=== PATIENT | female | born 1950 | race Hispanic/Latino ===

== ENCOUNTER 2018-11-03 20:29 | Emergency (ER) | payer MEDICARE, OTHER ==
[~2018-11-03] VITALS: Ht 167.6 cm; Wt 126.1 kg
[~2018-11-03 20:29] MED LIST: AMITRIPTYLINE H25 MG PO; ASPIR 8181 MG PO; BELLADONNA30 MG/100; CLOPIDOGREL75 MG PO; CYCLOBENZAPRINE10 MG PO; FIORINAL 50-321 EACH PO; GABAPENTIN300 MG PO; ISONIAZID300 MG PO; LISINOPRIL10 MG PO; MACRODANTIN100 MG PO; METOPROLOL TART25 MG PO; NEURONTIN300 MG PO; NITROFURANTOIN100 MG PO; PROAIR HFA INH8.5 GM; SIMVASTATIN40 MG PO; TIZANIDINE HCL2 MG; TRAMADOL-ACETAMI1 EA PO; VITAMIN B-650 M1 PO
--- OUTSIDE RECORDS SUMMARY | 2018-11-03 20:33 | XMS REPORT ---
Author Author Jass Reddy Organization [employer] Address Unknown Phone Unavailable Care Team Providers Care Vertical Mill Operator Name Role Phone Jass Reddy CP Unavailable Allergies, Adverse Reactions, Alerts Substance Reaction Event Type Vicodin Info Not Available Drug Allergy Ursodiol Info Not Available Drug Allergy Naproxen Info Not Available Drug Allergy Levofloxacin Info Not Available Drug Allergy Codeine Sulfate Info Not Available Drug Allergy Amlodipine Besylate Info Not Available Drug Allergy Problems Problem Type Condition Code Onset Dates Condition Status Problem Obesity, unspecified 278.00 Active Problem Mixed hyperlipidemia E78.2 Active Problem Obesity, unspecified E66.9 Active Problem Body mass index (BMI) 40.0-44.9, adult Z68.41 Active Assessment Obesity, unspecified E66.9 Active Problem Other pulmonary embolism without acute cor pulmonale I26.99 Active Assessment Body mass index (BMI) 40.0-44.9, adult Z68.41 Active Problem Lower extremity edema M79.89 Active Problem Bradycardia, unspecified R00.1 Active Problem Nonrheumatic aortic (valve) insufficiency I35.1 Active Problem Disseminated malignant neoplasm, unspecified C80.0 Active Problem Hypertensive heart disease without heart failure I11.9 Active Assessment Lower extremity edema M79.89 Active Assessment Bradycardia, unspecified R00.1 Active Assessment Disseminated malignant neoplasm, unspecified C80.0 Active Assessment Mixed hyperlipidemia E78.2 Active Problem Aortic valve disorders 424.1 Active Problem Mixed hyperlipidemia 272.2 Active Assessment Hypertensive heart disease without heart failure I11.9 Active Problem Benign hypertensive heart disease without heart failure 402.10 Active Assessment Other pulmonary embolism without acute cor pulmonale I26.99 Active Problem Angina pectoris 413.9 Active Medications Medication Code System Code Instructions Start Date End Date Status Dosage Lisinopril [facility] [address]-23 5 MG Orally Once a day Active 1 tablet Amitriptyline HCl [facility] [address]-08 25 MG Orally Once a day Active 1 tablet at bedtime Nitrofurantoin Macrocrystal [facility] [address]-92 100 mg Orally daily Active 1 capsule Meclizine HCl [facility] [address]-13 25 MG Orally Once a day Active 1 tablet as needed Metoprolol Tartrate [facility] [address]-07 50 MG Orally Twice a day Active 1 tablet Vitamin D3 [facility] [address]-17 2000 UNIT Orally Once a day Active 1 capsule ProAir HFA [facility] [address]-17 108 (90 Base) MCG/ACT Inhalation every 4 hrs Active 2 puffs as needed Tizanidine HCl [facility] [address]-78 2 MG Orally every 8 hrs Active 1 tablet as needed Simvastatin [facility] [address]-59 40 MG Orally Once a day Active 1 tablet in the evening Gabapentin [facility] [address]-04 300 MG Orally twice a day (bid) Active 1 capsule Furosemide [facility] [address]-26 20 MG Orally Once a day Aug 04, 2017 Active 1 tablet Eliquis [facility] [address]-28 5 MG Orally twice a day (bid) Active 1 tablet Tramadol-Acetaminophen [facility] [address]-04 37.5-325 MG Orally every 6 hrs Active 2 tablets as needed Vital Signs Date/Time: Aug 04, 2017 BMI 43.85 Index Weight 280 lbs Height 67 in Cardiac Monitoring Heart Rate 64 /min Blood Pressure Diastolic 70 mm Hg Blood Pressure Systolic 134 mm Hg Results No Known Results Summary Purpose [employer] Submission
--- OUTSIDE RECORDS SUMMARY | 2018-11-03 20:33 | XMS REPORT ---
Author Author Jass Reddy Organization [employer] Address Unknown Phone Unavailable Care Team Providers Care Sap Portal Developer Name Role Phone Jass Reddy CP Unavailable Allergies, Adverse Reactions, Alerts Substance Reaction Event Type Vicodin Info Not Available Drug Allergy Ursodiol Info Not Available Drug Allergy Naproxen Info Not Available Drug Allergy Levofloxacin Info Not Available Drug Allergy Codeine Sulfate Info Not Available Drug Allergy Amlodipine Besylate Info Not Available Drug Allergy Problems Problem Type Condition Code Onset Dates Condition Status Problem Hypertensive heart disease without heart failure I11.9 Active Problem Obesity, unspecified E66.9 Active Problem Mixed hyperlipidemia E78.2 Active Problem Lower extremity edema M79.89 Active Assessment Disseminated malignant neoplasm, unspecified C80.0 Active Problem Body mass index (BMI) 40.0-44.9, adult Z68.41 Active Assessment Morbid (severe) obesity due to excess calories E66.01 Active Assessment Body mass index (BMI) 40.0-44.9, adult Z68.41 Active Problem Morbid (severe) obesity due to excess calories E66.01 Active Problem Nonrheumatic aortic (valve) insufficiency I35.1 Active Problem Bradycardia, unspecified R00.1 Active Problem Disseminated malignant neoplasm, unspecified C80.0 Active Problem Other pulmonary embolism without acute cor pulmonale I26.99 Active Assessment Bradycardia, unspecified R00.1 Active Assessment Hypertensive heart disease without heart failure I11.9 Active Assessment Mixed hyperlipidemia E78.2 Active Assessment Lower extremity edema M79.89 Active Problem Angina pectoris 413.9 Active Problem Benign hypertensive heart disease without heart failure 402.10 Active Assessment Other pulmonary embolism without acute cor pulmonale I26.99 Active Problem Aortic valve disorders 424.1 Active Problem Mixed hyperlipidemia 272.2 Active Problem Obesity, unspecified 278.00 Active Medications Medication Code System Code Instructions Start Date End Date Status Dosage Lisinopril [facility] 57064450263 5 MG Orally Once a day Active 1 tablet Metoprolol Tartrate [facility] 78805610756 50 mg Orally Twice a day Active 1/2 half tablet Sutent [facility] 75718303165 25 MG Orally Once a day Active 1 capsule Tramadol-Acetaminophen [facility] 88225798870 37.5-325 MG Orally every 6 hrs Active 2 tablets as needed Furosemide [facility] 73539536564 20 MG Orally Once a day Aug 04, 2017 Active 1 tablet Vitamin D3 [facility] 74567248224 2000 UNIT Orally Once a day Active 1 capsule Trimethoprim [facility] 95855942542 100 MG Orally Once a day Active 1 tablet Tizanidine HCl [facility] 54874159520 2 MG Orally every 8 hrs Active 1 tablet as needed ProAir HFA [facility] 10407797204 108 (90 Base) MCG/ACT Inhalation every 4 hrs Active 2 puffs as needed Gabapentin [facility] 11169656561 300 MG Orally once every night Active 1 capsule Nitrofurantoin Macrocrystal [facility] 30721821772 100 mg Orally daily Active 1 capsule Eliquis [facility] 92096874703 5 MG Orally twice a day (bid) Active 1 tablet Aspirin [facility] 01715750566 81 MG Orally Once a day Active 1 tablet Simvastatin [facility] 20096739449 40 MG Orally Once a day Active 1 tablet in the evening Vital Signs Date/Time: April 27, 2018 BMI 41.97 Index Weight 268 lbs Height 5ft 7in in Cardiac Monitoring Heart Rate 54 /min Blood Pressure Diastolic 68 mm Hg Blood Pressure Systolic 129 mm Hg Results No Known Results Summary Purpose [employer] Submission
--- OUTSIDE RECORDS SUMMARY | 2018-11-03 20:33 | XMS REPORT ---
Author Author Jass Reddy Organization [employer] Address Unknown Phone Unavailable Care Team Providers Care First Line Production Supervisor Name Role Phone Jass Reddy CP Unavailable Allergies No Known Allergies Problems Problem Type Condition Code Onset Dates Condition Status Problem Obesity, unspecified 278.00 Active Problem Mixed hyperlipidemia E78.2 Active Problem Obesity, unspecified E66.9 Active Problem Body mass index (BMI) 40.0-44.9, adult Z68.41 Active Problem Other pulmonary embolism without acute cor pulmonale I26.99 Active Problem Lower extremity edema M79.89 Active Problem Bradycardia, unspecified R00.1 Active Problem Nonrheumatic aortic (valve) insufficiency I35.1 Active Problem Disseminated malignant neoplasm, unspecified C80.0 Active Problem Hypertensive heart disease without heart failure I11.9 Active Problem Aortic valve disorders 424.1 Active Problem Mixed hyperlipidemia 272.2 Active Problem Benign hypertensive heart disease without heart failure 402.10 Active Problem Angina pectoris 413.9 Active Medications No Known Medications Results No Known Results Summary Purpose [employer] Submission
--- OUTSIDE RECORDS SUMMARY | 2018-11-03 20:33 | XMS REPORT ---
Author Author Jass Reddy Organization [employer] Address Unknown Phone Unavailable Care Team Providers Care Linotype Machinist Apprentice Name Role Phone Jass Reddy CP Unavailable Encounters Encounter Location Date Unknown [place] Aug [place], 2015 echo/carotid/arterial dopplers [place] Aug 04, 2016 Problems Problem Type Condition ICD-9 Code Onset Dates Condition Status Problem Aortic valve disorders 424.1 Active Problem Benign hypertensive heart disease without heart failure 402.10 Active Problem Mixed hyperlipidemia 272.2 Active Problem Bradycardia, unspecified R00.1 Active Problem Nonrheumatic aortic (valve) insufficiency I35.1 Active Problem Hypertensive heart disease without heart failure I11.9 Active Problem Obesity, unspecified 278.00 Active Problem Angina pectoris 413.9 Active Problem Mixed hyperlipidemia E78.2 Active Problem Obesity, unspecified E66.9 Active Social History Social History Element Qualifiers Date Reported Tobacco Use: . Are you a: never smoker Aug 28, 2015 Marital Status: . Aug 28, 2015 Do you drink alcohol? . Status: No Aug 28, 2015 Occupation: . Unemployed Aug 28, 2015 Summary Purpose [employer] Submission
--- OUTSIDE RECORDS SUMMARY | 2018-11-03 20:33 | XMS REPORT | Clinical Summary ---
Author [facility] Organization [facility] Address Unknown Phone Unavailable Care Team Providers Care Alteration Tailor Name Role Phone Mario AlebrtoInderjit stover Unavailable Marium Mckenna MD PCP Allergies Comments Active Allergy Reactions Severity Noted Date Codeine Nausea And High 09/22/2016 Vomiting Bruising Levofloxacin Other (See High 10/17/2016 Comments) bruising Ursodiol Other (See High 09/22/2016 Comments) Hydrocodone-Acetaminophen Nausea And High 09/22/2016 Vomiting Medications End Date Status Medication Sig Dispensed Refills Start Date Active metoprolol (LOPRESSOR) 50 Take 50 mg by 0 MG tablet mouth 2 (two) times daily. Active lisinopril Take 20 mg by 0 (PRINIVIL,ZESTRIL) 20 MG mouth daily. tablet Active simvastatin (ZOCOR) 40 MG Take 40 mg by 0 tablet mouth nightly. Active amitriptyline (ELAVIL) 25 Take 25 mg by 0 MG tablet mouth nightly . Active gabapentin (NEURONTIN) Take 300 mg 0 300 MG capsule by mouth 3 (three) times daily. Active tiZANidine (ZANAFLEX) 2 Take 2 mg by 0 MG tablet mouth every 6 (six) hours as needed. Active albuterol HFA (VENTOLIN Inhale 1 puff 0 HFA) 90 mcg/actuation by mouth via inhaler inhaler every 6 (six) hours as needed for Wheezing. Active nitroglycerin (NITROSTAT) Place 0.4 mg 0 0.4 MG SL tablet under the tongue every 5 (five) minutes as needed for Chest pain Put 1 pill under tongue every 5min as needed for chest pain.No more than 3 doses in 15min.Call 911 if pain is unrelieved 5min after 1st dose . Active traMADol-acetaminophen Take 1 tablet 0 (ULTRACET) 37.5-325 mg by mouth per tablet every 6 (six) hours as needed for Pain. 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 Last Filed Vital Signs Not on file Plan of Treatment Not on file Implants Device Identifier Shelf Expiration Date Model / Serial / Lot Implanted Type Area Manufactur er 01/12/2021 BW-012 / / [id number] Material Bone Hemostasis Bw-012 - Cement/Will Right: Sternum CEREMED [id number] ler/Adhesi Implanted: Qty: 1 on 10/05/2016 by Dell Cobian MD 05/12/2021 [id number] / / [id number] Patch Vasc Jefferson 1.65mm 1x6in Graft/Patc Right: Abdomen CR [id number] - [id number] BARD:PERIP Implanted: Qty: 1 on 10/05/2016 by Dell Ibanez MD 07/12/2021 [id number] / / [id number] Patch Vasc Jefferson 1.65mm 1x6in Graft/Patc Right: Chest CR [id number] - [id number] BARD:PERIP Implanted: Qty: 1 on 10/05/2016 by Dell Ibanez MD Results Not on fileafter 11/02/2017 Insurance Payer Benefit Subscriber ID Type Phone Address Plan / Group [facility] xxxxxxxxx MEDICARE MGD CARE MEDICARE HMO Advance Directives For more information, please contact: [facility] [address] [place] [address] Date Inactivated Comments Code Status Date Activated 10/11/2016 5:39 PM Full Code 10/05/2016 5:08 PM This code status was determined by: Patient
--- OUTSIDE RECORDS SUMMARY | 2018-11-03 20:33 | XMS REPORT | Continuity of Care Document ---
Author Author [facility] Interface Address Unknown Phone Unavailable Problems Problem Status Onset Date Classification Date Reported Comments Source Discharge Diagnosis: Dental infection 01/06/2017 01/09/2017 [place] LACERATION Active 01/06/2017 [place] Obesity, unspecified Active Problem 04/28/2018 Jass Reddy MD, PA Mixed hyperlipidemia Active Problem 04/28/2018 Jass Reddy MD, PA Obesity, unspecified Active Problem 04/28/2018 Jass Reddy MD, PA Body mass index 40.0-44.9, adult Active Problem 04/28/2018 Jass Reddy MD, PA Other pulmonary embolism without acute cor pulmonale Active Problem 04/28/2018 Jass Reddy MD, PA Lower extremity edema Active Problem 04/28/2018 Jass Reddy MD, PA Bradycardia, unspecified Active Problem 04/28/2018 Jass Reddy MD, PA Nonrheumatic aortic insufficiency Active Problem 04/28/2018 Jass Reddy MD, PA Disseminated malignant neoplasm, unspecified Active Diagnosis 04/28/2018 Jass Reddy MD, PA Hypertensive heart disease without heart failure Active Problem 04/28/2018 Jass Reddy MD, PA Aortic valve disorders Active Problem 04/28/2018 Jass Reddy MD, PA Mixed hyperlipidemia Active Problem 04/28/2018 Jass Reddy MD, PA Benign hypertensive heart disease without heart failure Active Problem 04/28/2018 Jass Reddy MD, PA Angina pectoris Active Problem 04/28/2018 Jass Reddy MD, PA Morbid obesity due to excess calories Active Diagnosis 04/28/2018 Jass Reddy MD, PA Coronary artery 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, unspecified whether tangirnaq or transplanted heart Active Problem 11/03/2018 Enayet Rahim S/p nephrectomy Active Problem 11/03/2018 Enayet Rahim Essential hypertension Active Problem 11/03/2018 Enayet Rahim Mild pulmonary hypertension Active Problem 11/03/2018 Enayet Rahim Pure hypercholesterolemia Active Problem 11/03/2018 Jose Maria Reyes Frequent UTI Active Problem 11/03/2018 Jose Maria Reyes Neuropathy Active Problem 11/03/2018 Jose Maria Reyes Vitamin D deficiency Active Problem 11/03/2018 Jose Maria Reyes Tachycardia Active Problem 11/03/2018 Jose Maria Reyes At risk for sleep apnea Active Diagnosis 05/03/2017 Jose Maria Reyes Other specified transient cerebral ischemias Active Problem 11/03/2018 Jose Maria Reyes History of nephrectomy, unilateral Active Problem 11/03/2018 Jose Maria Reyes Current use of fdc anticoagulation Active Problem 11/03/2018 Jose Maria Reyes Renal cell carcinoma of right kidney Active Diagnosis 12/30/2017 Jose Maria Reyes Fall, subsequent encounter Active Diagnosis 06/09/2018 Jose Maria Reyes Dizziness Active Diagnosis 06/09/2018 Jose Maria Reyes Other acute pulmonary embolism without acute cor pulmonale Active Diagnosis 10/26/2016 Jose Maria Reyes Diverticulitis of large intestine without perforation or abscess with bleeding Active Problem 11/03/2018 Jose Maria Reyes Lower abdominal pain Active Diagnosis 07/15/2018 Jose Maria Reyes Leg swelling Active Diagnosis 08/09/2018 Jose Maria Reyes Renal cell carcinoma, unspecified laterality Active Diagnosis 10/29/2016 Jose Maria Reyes Other chronic pulmonary embolism without acute cor pulmonale Active Diagnosis 01/26/2017 Jose Maria Reyes Tooth infection Active Diagnosis 01/26/2017 Jose Maria Reyes Prediabetes Active Problem 11/03/2018 Jose Maria Reyes Left shoulder pain Active Diagnosis 11/03/2018 Jose Maria Reyes Morbid obesity Active Problem 04/25/2018 [facility] Renal cell carcinoma Resolved Problem 04/25/2018 [facility] Medications Medication Details Route Status Patient Instructions Ordering Provider Order Date Source Tizanidine HCl 1 tablet as needed once every night orally 90 days by mouth Active 2 MG by mouth daily [facility] 10/18/2018 Jose Maria Reyes Trimethoprim 100 MG Oral Tablet 100 mg=1 tab, PO, Daily, # 90 tab, 4 Refill(s), [id number] Active 04/20/2018 [facility] Trimethoprim 100 MG Oral Tablet 100 mg=1 tab, PO, Daily, X 90 day, # 90 tab, 0 Refill(s), Pharmacy: [facility] [id number] No Longer Active 03/11/2018 [facility] Tizanidine HCl 1 tablet as needed Orally Active 2 MG Orally once every night [facility] 11/09/2017 Jose Maria Reyes Trimethoprim 100 MG Oral Tablet 100 mg=1 tab, PO, Daily, X 30 day, # 30 tab, 0 Refill(s), Pharmacy: [facility] [id number] Active 10/18/2017 [facility] Q-Tussin 10 ml as needed Orally Active 100 MG/5ML Orally twice a day (bid) as needed (prn) [facility] 10/10/2017 Jose Maria Reyes Furosemide 1 tablet Orally Active 20 MG Orally Once a day [facility] 08/04/2017 Jass Reddy MD, PA Furosemide 1 tablet Orally Active 20 MG Orally Once a day [facility] 08/04/2017 Jass Reddy MD, PA Tramadol-Acetaminophen 1 tablet Orally Active 37.5-325 MG Orally three times a day (tid) as needed (prn) [facility] 11/25/2016 Jose Maria Reyes Amlodipine Besylate 1 tablet Orally Active 10 mg Orally Once a day [facility] 02/21/2015 Jass Reddy MD, PA Eliquis 1 tablet Orally Active 5 MG Orally twice a day (bid) [facility] Jass Reddy MD, PA, Enayet Rahim Lisinopril 1 tablet Orally Active 5 MG Orally Once a day [facility] Jass Reddy MD, PA, Enayet Rahim Amitriptyline HCl 1 tablet at bedtime Orally Active 25 MG Orally Once a day [facility] Jass Reddy MD, PA Nitrofurantoin Macrocrystal 1 capsule Orally Active 100 mg Orally daily [facility] Jass Reddy MD, PA Meclizine HCl 1 tablet as needed Orally Active 25 MG Orally Once a day Barry Reddy MD, PA Metoprolol Tartrate 1 tablet Orally Active 50 MG Orally Twice a day [facility] Jass Reddy MD, PA, Enayet Rahim Vitamin D3 1 capsule Orally Active 2000 UNIT Orally Once a day [facility] Jass Reddy MD, PA, Enayet Rahim ProAir HFA 2 puffs as needed Inhalation Active 108 (90 Base) MCG/ACT Inhalation every 4 hrs Barry Reddy MD, PA Tizanidine HCl 1 tablet as needed Orally Active 2 MG Orally every 8 hrs Barry Reddy MD, PA,Jose Maria Reyes Simvastatin 1 tablet in the evening Orally Active 40 MG Orally Once a day Barry Reddy MD, PA,Jose Maria Reyes Gabapentin 1 capsule Orally Active 300 MG Orally twice a day (bid) Barry Reddy MD, PA Aspirin 1 tablet Orally Active 81 MG Orally Once a day Barry Reddy MD, PA Lisinopril 1 tablet Orally Active 20 MG Orally Once a day Barry Reddy MD, PA Tramadol-Acetaminophen 2 tablets as needed Orally Active 37.5- 325 MG Orally every 6 hrs Barry Reddy MD, PA Trimethoprim 1 tablet Orally Active 100 MG Orally Once a day Barry Reddy MD, PA Tizanidine HCl 1 tablet as needed Orally Active 2 MG Orally every 8 hrs Barry Reddy MD, PA,Jose Maria Reyes ProAir HFA 2 puffs as needed Inhalation Active 108 (90 Base) MCG/ACT Inhalation every 4 hrs Barry Reddy MD, PA Gabapentin 1 capsule Orally Active 300 MG Orally once every night Barry Reddy MD, PA Nitrofurantoin Macrocrystal 1 capsule Orally Active 100 mg Orally daily Barry Reddy MD, PA Aspirin 1 tablet Orally Active 81 MG Orally Once a day Barry Reddy MD, PA Gabapentin 1 capsule three times a day orally 90 days by mouth Active 300 MG by mouth three times a day (tid) B[facility] Reyes ProAir HFA 2 puffs as needed Inhalation Active 108 (90 Base) MCG/ACT Inhalation every 4 hrs Blaa Reyes Gabapentin 1 capsule Orally Active 300 MG Orally Three times a day Bala Reyes Aspirin 1 tablet Orally Active 81 MG Orally Once a day Bala Reyes Nitrofurantoin Monohyd Macro 1 capsule with food Orally Active 100 MG Orally every 12 hrs Bala Reyes Amitriptyline HCl 1 tablet once a day orally 90 days Orally Active 25 MG Orally Once a day Bala Reyes Metoprolol Tartrate 1 tablet with food twice a day orally 90 days Orally Active 50 mg Orally Twice a day Bala Reddy MD, PA, Enayet Rahim ProAir HFA 2 puffs as needed Inhalation Active 108 (90 Base) MCG/ACT Inhalation every 4 hrs Bala Reyes Albuterol not defined NA Active as needed Bala Reyes Lisinopril 1 tablet Orally Active 5 MG Orally Once a day Bala Reddy MD, PA, Enayet Rahim Furosemide 1 tablet Orally Active 20 MG Orally Once a day Bala Reyes Simvastatin 1 tablet in the evening once a day orally 90 days by mouth Active 40 mg by mouth daily Bala Reddy MD, PA, Enayet Rahim Eliquis not defined Orally Active 5 MG Orally twice a day Bala Reddy MD, PA, Enayet Rahim Vitamin D3 1 capsule Orally Active 2000 UNIT Orally Once a day Bala Reddy MD, PA, Enayet Rahim Q-Tussin 10 ml as needed Orally Active 100 MG/5ML Orally every 4 hrs Bala Reyes Doc-Q-Lax 1 tablet in the evening as needed Orally Active 8.6- 50 MG Orally Once a day Bala Reyes Nitrofurantoin Monohyd Macro 1 capsule with food Orally Active 100 MG Orally every 12 hrs Bala Reyes Aspirin 1 tablet Orally Active 81 MG Orally Once a day Bala Reyes Fish Oil 1 capsule Orally Active 600 MG Orally Once a day Bala Reyes Clopidogrel Bisulfate 1 tablet Orally Active 75 MG Orally Once a day Bala Reddy MD, PA, Enayet Rahim Amitriptyline HCl 1 tablet Orally Active 25 MG Orally Once a day Bala Reyes Sutent 1 capsule Orally Active 25 MG Orally Once a day Bala Reddy MD, PA, Enayet Rahim Tramadol-Acetaminophen 1 tablets as needed Orally Active 37.5- 325 MG Orally Four times a day Bala Reyes Trimethoprim 1 tablet Orally Active 100 MG Orally Once a day Bala Reyes Tramadol-Acetaminophen 1 tablets as needed Orally Active 37.5- 325 MG Orally Four times a day [facility] Jass Reddy MD, PA,Jose Maria Reyes Sutent not defined NA Active [facility] Metoprolol Tartrate 1 tablet with food Orally Active 25 MG Orally Twice a day [facility] Tramadol-Acetaminophen 2 tablets as needed Orally Active 37.5- 325 MG Orally every 6 hrs [facility] Lisinopril 1 tablet Orally Active 20 MG Orally Once a day [facility] Albuterol Unknown NA Active [facility] Ciprofloxacin HCl 1 tablet Orally Active 500 MG Orally Once a day [facility] Metronidazole 1 tablet Orally Active 500 MG Orally every 8 hrs [facility] Jose Maria Reyes Allergies, Adverse Reactions, Alerts Substance Category Reaction Severity Reaction type Status Date Reported Comments Source Flexeril Adverse Reaction HBP Adverse Reaction Active 12/23/2017 Jose Maria Reyes Naproxen Adverse Reaction Info Not Available Adverse Reaction Active 04/27/2018 Jass Reddy MD, PA Levofloxacin Adverse Reaction Info Not Available Adverse Reaction Active 04/27/2018 Jass Reddy MD, PA Codeine Sulfate Adverse Reaction Info Not Available Adverse Reaction Active 04/27/2018 Jass Reddy MD, PA Amlodipine Besylate Adverse Reaction Info Not Available Adverse Reaction Active 04/27/2018 Jass Reddy MD PA codeine Adverse Reaction Info Not Available Adverse Reaction Active 07/29/2018 Jose Maria Reyes Cipro Adverse Reaction diarrhea Adverse Reaction Active 07/29/2018 Jose Maria Reyes Vicodin Adverse Reaction Info Not Available Adverse Reaction Active 2018 Enkelly Tenam Ursodiol Adverse Reaction Info Not Available Adverse Reaction Active 2018 [facility] him Iodine Adverse Reaction Info Not Available Adverse Reaction Active 2018 [facility] [place] MethylPREDNISolone Adverse Reaction Info Not Available Adverse Reaction Active 2018 [facility] him ursodiol Assertion Drug allergy Active [facility] corticosteroids Assertion Drug allergy Active [facility] iodine Assertion Drug allergy Active [facility] Immunizations Immunization Date Given Site Status Last Updated Comments Source Afluria (IIV4) Flu Vacc IM 08/11/2017 completed Jose Maria Reyes Results Order Name Results Value Reference Range Date Interpretation Comments Source URINE AND STOOL POC UA SG 1.015 <=1.030 04/20/2018 [facility] URINE AND STOOL POC UA pH 5.5 5.0 - 8.0 04/20/2018 [facility] URINE AND STOOL POC UA Prot Negative mg/dL Negative mg/dL 04/20/2018 [facility] URINE AND STOOL POC UA Color Yellow *NA* (04/20/18 12:43 PM) Yellow 04/20/2018 [facility] URINE AND STOOL POC UA Turbidity Clear *NA* (04/20/18 12:43 PM) Clear 04/20/2018 [facility] URINE AND STOOL POC UA Bili Negative *NA* (04/20/18 12:43 PM) Negative 04/20/2018 [facility] URINE AND STOOL POC UA Ket Negative mg/dL Negative mg/dL 04/20/2018 [facility] URINE AND STOOL POC UA Glu Negative mg/dL Negative mg/dL 04/20/2018 [facility] URINE AND STOOL POC UA Bld Small *ABN* (04/20/18 12:43 PM) Negative 04/20/2018 [facility] URINE AND STOOL POC UA Nit Positive *ABN* (04/20/18 12:43 PM) Negative 04/20/2018 [facility] URINE AND STOOL POC UA Uro 0.2 EU/dL 0.1 - 1.0 04/20/2018 [facility] URINE AND STOOL POC UA LeukEst Small *ABN* (04/20/18 12:43 PM) Negative 04/20/2018 [facility] URINE AND STOOL POC UA LeukEst Negative *NA* (01/17/18 10:59 AM) Negative 01/17/2018 [facility] URINE AND STOOL POC UA Nit Negative *NA* (01/17/18 10:59 AM) Negative 01/17/2018 [facility] URINE AND STOOL POC UA Uro 0.2 EU/dL 0.1 - 1.0 01/17/2018 [facility] URINE AND STOOL POC UA Bld Small *ABN* (01/17/18 10:59 AM) Negative 01/17/2018 [facility] URINE AND STOOL POC UA Glu Negative mg/dL Negative mg/dL 01/17/2018 [facility] URINE AND STOOL POC UA Ket Negative mg/dL Negative mg/dL 01/17/2018 [facility] URINE AND STOOL POC UA Color Yellow *NA* (01/17/18 10:59 AM) Yellow 01/17/2018 [facility] URINE AND STOOL POC UA Prot Negative mg/dL Negative mg/dL 01/17/2018 [facility] URINE AND STOOL POC UA Bili Negative *NA* (01/17/18 10:59 AM) Negative 01/17/2018 [facility] URINE AND STOOL POC UA SG 1.010 <=1.030 01/17/2018 [facility] URINE AND STOOL POC UA Turbidity Clear *NA* (01/17/18 10:59 AM) Clear 01/17/2018 [facility] URINE AND STOOL POC UA pH 5.0 5.0 - 8.0 01/17/2018 [facility] Vital Signs Vital Sign Value Date Comments Source Weight 270.5 2018 Enayet Rahim Height 67 2018 Enayet Rahim Temperature Oral (F) 97.1 F 2018 Enayet Rahim Diastolic (mm Hg) 77 2018 Enayet Rahim Systolic (mm Hg) 158 2018 Enayet Rahim Weight 263 10/21/2018 Enayet Rahim Height 67 10/21/2018 Enayet Rahim Temperature Oral (F) 98.5 F 10/21/2018 Enayet Rahim Diastolic (mm Hg) 87 10/21/2018 Enayet Rahim Systolic (mm Hg) 158 10/21/2018 Enayet Rahim Weight 272.5 07/29/2018 Enayet Rahim Height 67 07/29/2018 Enayet Rahim Temperature Oral (F) 98.2 F 07/29/2018 Enayet Rahim Diastolic (mm Hg) 61 07/29/2018 Enayet Rahim Systolic (mm Hg) 129 07/29/2018 Enayet Rahim Weight 272.5 07/12/2018 Enayet Rahim Height 67 07/12/2018 Enayet Rahim Temperature Oral (F) 97.3 F 07/12/2018 Enayet Rahim Systolic (mm Hg) 173 07/12/2018 Enayet Rahim Weight 279 05/24/2018 Enayet Rahim Height 67 05/24/2018 Enayet Rahim Temperature Oral (F) 98.1 F 05/24/2018 Enayet Rahim Diastolic (mm Hg) 76 05/24/2018 Enayet Rahim Systolic (mm Hg) 135 05/24/2018 Enayet Rahim Weight 268 04/27/2018 Jass Reddy MD, PA Heart Rate 54 04/27/2018 Jass Reddy MD, PA Diastolic (mm Hg) 68 04/27/2018 Jass Reddy MD, PA Systolic (mm Hg) 129 04/27/2018 Jass Reddy MD, PA Weight 277 04/21/2018 Enayet Rahim Height 67 04/21/2018 Enayet Rahim Temperature Oral (F) 98.2 F 04/21/2018 Enayet Rahim Diastolic (mm Hg) 85 04/21/2018 Enayet Rahim Systolic (mm Hg) 148 04/21/2018 Enayet Rahim Weight 127.273 01/17/2018 [facility] BMI Calculated 43.95 01/17/2018 [facility] Heart Rate 74 01/17/2018 [facility] Height 170.18 cm 01/17/2018 [facility] Systolic (mm Hg) 118 01/17/2018 [facility] Diastolic (mm Hg) 69 01/17/2018 [facility] Weight 280 12/23/2017 Enayet Rahim Height 67 12/23/2017 Enayet Rahim Temperature Oral (F) 98.7 F 12/23/2017 Enayet Rahim Diastolic (mm Hg) 78 12/23/2017 Enayet Rahim Systolic (mm Hg) 145 12/23/2017 Enayet Rahim Systolic (mm Hg) 120 10/18/2017 [facility] Diastolic (mm Hg) 87 10/18/2017 [facility] Heart Rate 87 10/18/2017 [facility] Weight 273 08/11/2017 Enayet Rahim Height 67 08/11/2017 Enayet Rahim Temperature Oral (F) 97.7 F 08/11/2017 Enayet Rahim Diastolic (mm Hg) 77 08/11/2017 Enayet Rahim Systolic (mm Hg) 138 08/11/2017 Enayet Rahim Weight 280 08/04/2017 Jass Reddy MD, PA Height 67 08/04/2017 Jass Reddy MD, PA Heart Rate 64 08/04/2017 Jass Reddy MD, PA Diastolic (mm Hg) 70 08/04/2017 Jass Reddy MD, PA Systolic (mm Hg) 134 08/04/2017 Jass Reddy MD, PA Weight 268 04/30/2017 Enayet Rahim Height 67 04/30/2017 Enayet Rahim Temperature Oral (F) 96.0 F 04/30/2017 Enayet Rahim Diastolic (mm Hg) 71 04/30/2017 Enayet Rahim Systolic (mm Hg) 130 04/30/2017 Enayet Rahim Weight 262.5 01/21/2017 Enayet Rahim Height 67 01/21/2017 Enayet Rahim Temperature Oral (F) 96.3 F 01/21/2017 Enayet Rahim Diastolic (mm Hg) 68 01/21/2017 Enayet Rahim Systolic (mm Hg) 114 01/21/2017 Enayet Rahim Weight 263 01/12/2017 Jass Reddy MD, PA Heart Rate 65 01/12/2017 Jass Reddy MD, PA Diastolic (mm Hg) 65 01/12/2017 Jass Reddy MD, PA Systolic (mm Hg) 95 01/12/2017 Jass Reddy MD, PA Temperature Oral (F) 98.0 F 01/07/2017 [facility] Heart Rate 62 01/07/2017 [facility] Respitory Rate 16 01/07/2017 [facility] Systolic (mm Hg) 125 01/07/2017 [facility] Diastolic (mm Hg) 63 01/07/2017 [facility] Systolic (mm Hg) 149 01/07/2017 [facility] Diastolic (mm Hg) 76 01/07/2017 [facility] Respitory Rate 18 01/07/2017 [facility] Heart Rate 63 01/07/2017 [facility] Height 167.64 cm 01/06/2017 [facility] BMI Calculated 41.89 01/06/2017 [facility] Heart Rate 69 01/06/2017 [facility] Respitory Rate 18 01/06/2017 [facility] Temperature Oral (F) 98.2 F 01/06/2017 [facility] Weight 117.727 01/06/2017 [facility] Systolic (mm Hg) 159 01/06/2017 [facility] Diastolic (mm Hg) 81 01/06/2017 [facility] Weight 262 10/26/2016 Enayet Rahim Height 67 10/26/2016 Enayet Rahim Temperature Oral (F) 95.9 F 10/26/2016 Enayet Rahim Diastolic (mm Hg) 68 10/26/2016 Enayet Rahim Systolic (mm Hg) 121 10/26/2016 Enayet Rahim Weight 266 10/19/2016 Enayet Rahim Height 67 10/19/2016 Enayet Rahim Temperature Oral (F) 96.8 F 10/19/2016 Enayet Rahim Diastolic (mm Hg) 80 10/19/2016 Enayet Rahim Systolic (mm Hg) 145 10/19/2016 Enayet Rahim Weight 269 10/14/2016 Jass Reddy MD, PA Heart Rate 77 10/14/2016 Jass Reddy MD, PA Diastolic (mm Hg) 75 10/14/2016 Jass Reddy MD, PA Systolic (mm Hg) 130 10/14/2016 Jass Reddy MD, PA Weight 267 08/26/2016 Jass Reddy MD, PA Heart Rate 70 08/26/2016 Jass Reddy MD, PA Diastolic (mm Hg) 67 08/26/2016 Jass Reddy MD, PA Systolic (mm Hg) 130 08/26/2016 Jass Reddy MD, PA Encounters Location Location Details Encounter Type Encounter Number Reason For Visit Attending Provider ADM Date DC Date Status Source Jass Reddy MD, PA Unknown [id number] 08/26/2015 08/26/2015 Jass Reddy MD, PA Jass Reddy MD, PA Unknown [id number] 08/26/2015 08/26/2015 Jass Reddy MD, PA Jass Reddy MD, PA Unknown [id number] 08/26/2015 08/26/2015 Jass Reddy MD, PA Jass Reddy MD, PA Unknown [id number] 08/26/2015 08/26/2015 Jass Reddy MD, PA Jass Reddy MD, PA Formerly [facility] [id number] 08/26/2015 08/26/2015 Jass Reddy MD, PA Jass Reddy MD, PA echo/carotid/arterial dopplers [id number] 08/04/2016 08/04/2016 Jass Reddy MD, PA Jass Reddy MD, PA echo/carotid/arterial dopplers [id number] 08/04/2016 08/04/2016 Jass Reddy MD, PA Jass Reddy MD, PA echo/carotid/arterial dopplers [id number] 08/04/2016 08/04/2016 Jass Reddy MD, PA Jass Reddy MD, PA echo/carotid/arterial dopplers [id number] 08/04/2016 08/04/2016 Jass Reddy MD, PA Jass Reddy MD, PA echo/carotid/arterial dopplers [id number] 08/04/2016 08/04/2016 Jass Reddy MD, PA Jass Reddy MD, PA Follow-Up [id number] 08/26/2016 08/26/2016 Jass Reddy MD, PA Jass Reddy MD, PA Follow-Up [id number] 08/26/2016 08/26/2016 Jass Reddy MD, PA Jass Reddy MD, PA Follow-Up [id number] 08/26/2016 08/26/2016 Jass Reddy MD, PA Jass Reddy MD, PA Follow-Up [id number] 08/26/2016 08/26/2016 Jass Reddy MD, PA Jass Reddy MD, PA Follow-Up [id number] 10/14/2016 10/14/2016 Jass Reddy MD, PA Jass Reddy MD, PA Follow-Up [id number] 10/14/2016 10/14/2016 Jass Reddy MD, PA Jass Reddy MD, PA Follow-Up [id number] 10/14/2016 10/14/2016 Jass Reddy MD, PA Jose Maria Reyes MD, PA NEW PT [id number] 10/19/2016 10/19/2016 Jose Maria Reyes MD, PA NEW PT [id number] 10/19/2016 10/19/2016 Jose Maria Reyes MD, PA NEW PT [id number] 10/19/2016 10/19/2016 Jose Maria Reyes MD, PA NEW PT [id number] 10/19/2016 10/19/2016 Jose Maria Reyes MD, PA NEW PT [id number] 10/19/2016 10/19/2016 Jose Maria Reyes MD, PA NEW PT [id number] 10/19/2016 10/19/2016 Jose Maria Reyes MD, PA NEW PT [id number] 10/19/2016 10/19/2016 Jose Maria Reyes MD, PA NEW PT [id number] 10/19/2016 10/19/2016 Jose Maria Reyes MD, PA NEW PT [id number] 10/19/2016 10/19/2016 Jose Maria Reyes MD, PA NEW PT [id number] 10/19/2016 10/19/2016 Jose Maria Reyes MD, PA Sick Visit [id number] 10/26/2016 10/26/2016 Jose Maria Reyes MD, PA Sick Visit [id number] 10/26/2016 10/26/2016 Jose Maria Reyes MD, PA Sick Visit [id number] 10/26/2016 10/26/2016 Jose Maria Reyes MD, PA Sick Visit [id number] 10/26/2016 10/26/2016 Jose Maria Reyes MD, PA Sick Visit [id number] 10/26/2016 10/26/2016 Jose Maria Reyes MD, PA Sick Visit [id number] 10/26/2016 10/26/2016 Jose Maria Reyes MD, PA Sick Visit [id number] 10/26/2016 10/26/2016 Jose Maria Reyes MD, PA Sick Visit [id number] 10/26/2016 10/26/2016 Jose Maria Reyes MD, PA Sick Visit [id number] 10/26/2016 10/26/2016 Jose Maria Reyes MD, PA Unknown [id number] 2016 2016 Jose Maria Reyes MD, PA Unknown [id number] 2016 2016 Jose Maria Reyes MD, PA Unknown [id number] 2016 2016 Jose Maria Reyes MD, PA Unknown [id number] 2016 2016 Jose Maria Reyes MD, PA Unknown [id number] 2016 2016 Jose Maria Reyes MD, PA Unknown [id number] 2016 2016 Jose Maria Reyes MD, PA Unknown [id number] 2016 2016 Jose Maria Reyes MD, PA Unknown [id number] 2016 2016 Jose Maria Reyes MD, PA Unknown [id number] 10/30/2016 10/30/2016 Jose Maria Reyes MD, PA Unknown [id number] 10/30/2016 10/30/2016 Jose Maria Reyes MD, PA Unknown [id number] 10/30/2016 10/30/2016 Jose Maria Reyes MD, PA Unknown [id number] 10/30/2016 10/30/2016 Jose Maria Reyes MD, PA Unknown [id number] 10/30/2016 10/30/2016 Jose Maria Reyes MD, PA Unknown [id number] 10/30/2016 10/30/2016 Jose Maria Reyes MD, PA Unknown [id number] 10/30/2016 10/30/2016 Jose Maria Reyes MD, PA Unknown [id number] 11/02/2016 11/02/2016 Jose Maria Reyes MD, PA Unknown [id number] 11/02/2016 11/02/2016 Jose Maria Reyes MD, PA Unknown [id number] 11/02/2016 11/02/2016 Jose Maria Reyes MD, PA Unknown [id number] 11/02/2016 11/02/2016 Jose Maria Reyes MD, PA Unknown [id number] 11/02/2016 11/02/2016 Jose Maria Reyes MD, PA Unknown [id number] 11/02/2016 11/02/2016 Jose Maria Reyes MD, PA Unknown [id number] 11/02/2016 11/02/2016 Jose Maria Reyes MD, PA Unknown [id number] 11/02/2016 11/02/2016 Jose Maria Reyes MD, PA Unknown [id number] 11/02/2016 11/02/2016 Jose Maria Reyes MD, [place] Unknown [id number] 11/02/2016 11/02/2016 Jose Maria Reyes MD, PA Unknown [id number] 11/02/2016 11/02/2016 Jose Maria Reyes MD, PA Other [id number] 11/20/2016 11/20/2016 Jose Maria Reyes MD, PA Other [id number] 11/20/2016 11/20/2016 Jose Maria Reyes MD, PA Other [id number] 11/20/2016 11/20/2016 Jose Maria Reyes MD, PA Other [id number] 11/20/2016 11/20/2016 Jose Maria Reyes MD, PA refill [id number] 12/24/2016 12/24/2016 Jose Maria Reyes MD, PA refill [id number] 12/24/2016 12/24/2016 Jose Maria Reyes MD, PA refill [id number] 12/24/2016 12/24/2016 Jose Maria Reyes [facility] Emergency [id number] Grazyna Thaof 01/06/2017 01/07/2017 [facility] Jass Reddy MD, PA bleeding in her mouth [id number] 01/06/2017 01/06/2017 Jass Reddy MD, PA Jass Reddy MD, PA bleeding in her mouth [id number] 01/06/2017 01/06/2017 Jass Reddy MD, PA Jass Reddy MD, PA Unknown [id number] 01/12/2017 01/12/2017 Jass Reddy MD, PA Jose Maria Reyes MD, PA refills [id number] 01/15/2017 01/15/2017 Jose Maria Reyes MD, PA refills [id number] 01/15/2017 01/15/2017 Jose Maria Reyes MD, PA Sick Visit [id number] 01/21/2017 01/21/2017 Jose Maria Reyes Outpatient [id number] [facility] 09/20/2017 Active [facility] Outpatient [id number] [facility] 10/18/2017 [facility] [id number] [facility] 10/18/2017 Active [facility] Outpatient [id number] [facility] 10/18/2017 10/19/2017 [facility] Outpatient [id number] [facility] 01/17/2018 Active [facility] Outpatient [id number] [facility] 01/17/2018 01/18/2018 [facility] Outpatient [id number] [facility] 04/20/2018 Active [facility] Outpatient [id number] [facility] 04/20/2018 04/21/2018 [facility] Outpatient [id number] [facility] 08/19/2018 Active [facility] Outpatient [id number] [facility] 08/19/2018 Active [facility] Outpatient [id number] [facility] 11/25/2018 Active [facility] Procedures Procedure Code Date Perfomer Comments Source Cystourethroscopy (separate procedure) 08613 10/18/2017 [facility] Hernia repair [id number] [facility] Hysterectomy [id number] [facility] Nephrectomy [id number] [facility]
--- OUTSIDE RECORDS SUMMARY | 2018-11-03 20:33 | XMS REPORT ---
Author Author Jass Reddy Organization eClinical[employer] Address Unknown Phone Unavailable Care Team Providers Care Tank Car Cleaner Name Role Phone Jass Reddy CP Unavailable Allergies No Known Allergies Problems Problem Type Condition Code Onset Dates Condition Status Problem Angina pectoris 413.9 Active Problem Obesity, unspecified E66.9 Active Problem Obesity, unspecified 278.00 Active Problem Other pulmonary embolism without acute cor pulmonale I26.99 Active Problem Disseminated malignant neoplasm, unspecified C80.0 Active Problem Body mass index (BMI) 40.0-44.9, adult Z68.41 Active Problem Nonrheumatic aortic (valve) insufficiency I35.1 Active Problem Mixed hyperlipidemia E78.2 Active Problem Hypertensive heart disease without heart failure I11.9 Active Problem Bradycardia, unspecified R00.1 Active Problem Aortic valve disorders 424.1 Active Problem Mixed hyperlipidemia 272.2 Active Problem Benign hypertensive heart disease without heart failure 402.10 Active Medications Medication Code System Code Instructions Start Date End Date Status Dosage Gunjan [facility] [address]-96 5 MG Orally twice a day (bid) Active 1 tablet Results No Known Results Summary Purpose eClinicalWorks Submission
--- OUTSIDE RECORDS SUMMARY | 2018-11-03 20:34 | XMS REPORT ---
Author Author Marium Mckenna [facility] eClinicalWorks Address Unknown Phone Unavailable Care Team Providers Care Poultry Feed Supervisor Name Role Phone Marium Mckenna CP Unavailable Allergies, Adverse Reactions, Alerts Substance Reaction Event Type codeine Info Not Available Drug Allergy Vicodin Info Not Available Drug Allergy Ursodiol Info Not Available Drug Allergy Iodine Info Not Available Drug Allergy Problems Problem Type Condition Code Onset Dates Condition Status Assessment Coronary artery disease involving [place] coronary artery without angina pectoris, unspecified whether [place] or transplanted heart I25.10 Active Problem Coronary artery disease involving [place] coronary artery without angina pectoris, unspecified whether [place] or transplanted heart I25.10 Active Assessment Mild pulmonary hypertension I27.2 Active Assessment At risk for sleep apnea Z91.89 Active Assessment Essential hypertension I10 Active Problem S/p nephrectomy Z90.5 Active Problem Essential hypertension I10 Active Problem Mild pulmonary hypertension I27.2 Active Problem Pure hypercholesterolemia E78.00 Active Problem Frequent UTI N39.0 Active Problem Neuropathy G62.9 Active Problem Vitamin D deficiency E55.9 Active Medications Medication Code System Code Instructions Start Date End Date Status Dosage Gabapentin [facility] [address]-48 300 MG Orally Three times a day Active 1 capsule Q-Tussin [facility] [address]-43 100 MG/5ML Orally every 4 hrs Active 10 ml as needed Lisinopril [facility] [address]-91 5 MG Orally Once a day Active 1 tablet Doc-Q-Lax [facility] [address]-38 8.6-50 MG Orally Once a day Active 1 tablet in the evening as needed Metoprolol Tartrate [facility] [address]-93 50 MG Orally Twice a day Active 1 tablet with food Albuterol ND 0 Active not defined Nitrofurantoin Monohyd Macro [facility] [address]-20 100 MG Orally every 12 hrs Active 1 capsule with food ProAir HFA [facility] [address]-99 108 (90 Base) MCG/ACT Inhalation every 4 hrs Active 2 puffs as needed Aspirin [facility] [address]-35 81 MG Orally Once a day Active 1 tablet Eliquis [facility] [address]-40 5 MG Orally twice a day Active not defined Vitamin D3 [facility] [address]-73 2000 UNIT Orally Once a day Active 1 capsule Fish Oil [facility] [address]385-[address]474 600 MG Orally Once a day Active 1 capsule Tizanidine HCl [facility] [address]-47 2 MG Orally every 8 hrs Active 1 tablet as needed Simvastatin [facility] 52923137554 40 MG Orally Once a day Active 1 tablet in the evening Clopidogrel Bisulfate [facility] [address]-80 75 MG Orally Once a day Active 1 tablet Amitriptyline HCl [facility] [address]-89 25 MG Orally Once a day Active 1 tablet Vital Signs Date/Time: April 30, 2017 BMI 41.97 Index Weight 268 lbs Height 67 in Temperature 96.0 F Blood Pressure Diastolic 71 mm Hg Blood Pressure Systolic 130 mm Hg Results No Known Results Summary Purpose eClinicalWorks Submission
--- OUTSIDE RECORDS SUMMARY | 2018-11-03 20:34 | XMS REPORT ---
Author Author Marium Mckenna Organization e[employer] Address Unknown Phone Unavailable Care Team Providers Care Engraver Ornamental Design Name Role Phone Marium Mckenna CP Unavailable Allergies, Adverse Reactions, Alerts Substance Reaction Event Type codeine Info Not Available Drug Allergy Vicodin Info Not Available Drug Allergy Ursodiol Info Not Available Drug Allergy Iodine Info Not Available Drug Allergy Cipro diarrhea Non Drug Allergy Problems Problem Type Condition Code Onset Dates Condition Status Problem Frequent UTI N39.0 Active Problem Coronary artery disease involving [place] coronary artery without angina pectoris, unspecified whether [place] or transplanted heart I25.10 Active Problem S/p nephrectomy Z90.5 Active Problem Current use of alf anticoagulation Z79.01 Active Problem 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 Active Problem Diverticulitis of large intestine without perforation or abscess with bleeding K57.33 Active Problem Mild pulmonary hypertension I27.2 Active Problem Pure hypercholesterolemia E78.00 Active Problem History of nephrectomy, unilateral Z90.5 Active Problem Tachycardia R00.0 Active Assessment Leg swelling M79.89 Active Problem Vitamin D deficiency E55.9 Active Problem Neuropathy G62.9 Active Problem Essential hypertension I10 Active Medications Medication Code System Code Instructions Start Date End Date Status Dosage Lisinopril [facility] 55443441060 5 MG Orally Once a day Active 1 tablet Amitriptyline HCl [facility] 54523358281 25 MG Orally Once a day Active 1 tablet once a day orally 90 days Simvastatin ND 64204764415 40 mg by mouth daily Active 1 tablet in the evening once a day orally 90 days Eliquis [facility] 89065847550 5 MG Orally twice a day Active not defined Tizanidine HCl [facility] 63562878529 2 MG by mouth daily Oct 18, 2018 Active 1 tablet as needed once every night orally 90 days Albuterol ND 0 as needed Active not defined Aspirin [facility] 71623072125 81 MG Orally Once a day Active 1 tablet Trimethoprim [facility] 39865352511 100 MG Orally Once a day Active 1 tablet Nitrofurantoin Monohyd Macro ND 16632885738 100 MG Orally every 12 hrs Active 1 capsule with food Sutent [facility] 26159688889 25 MG Orally Once a day Active 1 capsule Metoprolol Tartrate [facility] 24408383755 25 MG Orally Twice a day Active 1 tablet with food Ciprofloxacin HCl [facility] 06347190832 500 MG Orally Once a day Active 1 tablet ProAir HFA [facility] 54604321972 108 (90 Base) MCG/ACT Inhalation every 4 hrs Active 2 puffs as needed Tramadol-Acetaminophen [facility] 63085384242 37.5-325 MG Orally Four times a day Active 1 tablets as needed Metoprolol Tartrate [facility] 84291966422 50 mg Orally Twice a day Active 1 tablet with food twice a day orally 90 days Vitamin D3 [facility] 53583433854 2000 UNIT Orally Once a day Active 1 capsule Gabapentin [facility] 37732711668 300 MG by mouth three times a day (tid) Active 1 capsule three times a day orally 90 days Furosemide [facility] 61609436894 20 MG Orally Once a day Active 1 tablet Metronidazole [facility] 91375942807 500 MG Orally every 8 hrs Active 1 tablet Vital Signs Date/Time: Jul 29, 2018 BMI 42.67 Index Weight 272.5 lbs Height 67 in Temperature 98.2 F Blood Pressure Diastolic 61 mm Hg Blood Pressure Systolic 129 mm Hg Results No Known Results Summary Purpose eClinicalWorks Submission
--- OUTSIDE RECORDS SUMMARY | 2018-11-03 20:34 | XMS REPORT ---
Author Author Marium Mckenna Organization e[employer]Works Address Unknown Phone Unavailable Care Team Providers Care Fast Foods Worker Name Role Phone Marium Mckenna CP Unavailable Allergies, Adverse Reactions, Alerts Substance Reaction Event Type Vicodin Info Not Available Drug Allergy Ursodiol Info Not Available Drug Allergy MethylPREDNISolone Info Not Available Drug Allergy Iodine Info Not Available Drug Allergy Problems Problem Type Condition Code Onset Dates Condition Status Problem S/p nephrectomy Z90.5 Active Problem Pure hypercholesterolemia E78.00 Active Problem Coronary artery disease involving [place] coronary artery without angina pectoris, unspecified whether [place] or transplanted heart I25.10 Active Problem Prediabetes R73.03 Active Problem Current use of intermediate anticoagulation Z79.01 Active Problem Diverticulitis of large intestine without perforation or abscess with bleeding K57.33 Active Problem Tachycardia R00.0 Active Problem Mild pulmonary hypertension I27.2 Active Problem 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 99643982379 25 MG Orally Once a day Active 1 tablet once a day orally [address] [facility] 80742200227 20 MG Orally Once a day Active 1 tablet ProAir HFA [facility] 10624693012 108 (90 Base) MCG/ACT Inhalation every 4 hrs Active 2 puffs as needed Gabapentin [facility] 72045342723 300 MG by mouth three times a day (tid) Active 1 capsule three times a day orally [address] [facility] 20898510711 25 MG Orally Once a day Active [address] [facility] 12040681209 100 MG Orally Once a day Active [address] [facility] 34799162380 40 mg by mouth daily Active 1 tablet in the evening once a day orally [address] [facility] 10269286576 5 MG Orally twice a day Active not defined Aspirin [facility] 78776516974 81 MG Orally Once a day Active 1 tablet Tramadol-Acetaminophen [facility] 89576809583 37.5-325 MG Orally Four times a day Active 1 tablets as needed Albuterol ND 0 as needed Active not defined Metoprolol Tartrate [facility] 29072036673 25 MG Orally Twice a day Active 1 tablet with food Lisinopril [facility] 51528037820 5 MG Orally Once a day Active 1 tablet Vital Signs Date/Time: 2018 BMI 42.36 Index Weight 270.5 lbs Height 67 in Temperature 97.1 F Blood Pressure Diastolic 77 mm Hg Blood Pressure Systolic 158 mm Hg Results No Known Results Summary Purpose eClinicalWorks Submission
--- OUTSIDE RECORDS SUMMARY | 2018-11-03 20:34 | XMS REPORT ---
Author Author Jass Reddy Organization eClinicalWorks Address Unknown Phone Unavailable Care Team Providers Care Vacuum Cooker Operator Name Role Phone Jass Reddy CP Unavailable Encounters Encounter Location Date Follow-Up [place] Oct 14, 2016 bleeding in her mouth [place] Jan 06, 2017 Unknown Jass [place] Aug 26, 2015 echo/carotid/arterial dopplers [place] Aug 04, 2016 Follow-Up Jass Red[place], [place] Aug 26, 2016 Problems Problem Type Condition ICD-9 Code Onset Dates Condition Status Problem Benign hypertensive heart disease without heart failure 402.10 Active Problem Obesity, unspecified 278.00 Active Problem Angina pectoris 413.9 Active Problem Aortic valve disorders 424.1 Active Problem Mixed hyperlipidemia 272.2 Active Problem Disseminated malignant neoplasm, unspecified C80.0 Active Problem Hypertensive heart disease without heart failure I11.9 Active Problem Other pulmonary embolism without acute cor pulmonale I26.99 Active Problem Mixed hyperlipidemia E78.2 Active Problem Obesity, unspecified E66.9 Active Problem Bradycardia, unspecified R00.1 Active Problem Nonrheumatic aortic (valve) insufficiency I35.1 Active Social History Social History Element Qualifiers Date Reported Tobacco Use: . Are you a: never smoker Oct 14, 2016 Marital Status: . Oct 14, 2016 Do you drink alcohol? . Status: No Oct 14, 2016 Occupation: . Unemployed Oct 14, 2016 Summary Purpose eClinicalWorks Submission
--- OUTSIDE RECORDS SUMMARY | 2018-11-03 20:34 | XMS REPORT ---
Author Author Marium Mckenna Organization e[employer] Address Unknown Phone Unavailable Care Team Providers Care Horse Buyer Name Role Phone Marium Mckenna CP Unavailable Allergies No Known Allergies Problems Problem Type Condition Code Onset Dates Condition Status Problem Coronary artery disease involving [place] coronary artery without angina pectoris, unspecified whether [place] or transplanted heart I25.10 Active Problem S/p nephrectomy Z90.5 Active Problem Essential hypertension I10 Active Problem Mild pulmonary hypertension I27.2 Active Problem Pure hypercholesterolemia E78.00 Active Problem Frequent UTI N39.0 Active Problem Neuropathy G62.9 Active Problem Vitamin D deficiency E55.9 Active Medications Medication Code System Code Instructions Start Date End Date Status Dosage Gabapentin [facility] 67986219404 300 MG Orally Three times a day Active 1 capsule ProAir HFA [facility] [address]-73 108 (90 Base) MCG/ACT Inhalation every 4 hrs Active 2 puffs as needed Results No Known Results Summary Purpose eClinicalWorks Submission
--- OUTSIDE RECORDS SUMMARY | 2018-11-03 20:34 | XMS REPORT ---
Author Author Marium Mckenna Organization eClinicalWorks Address Unknown Phone Unavailable Care Team Providers Care Web Site Developer Name Role Phone Marium Mckenna CP Unavailable Allergies, Adverse Reactions, Alerts Substance Reaction Event Type codeine Info Not Available Drug Allergy Vicodin Info Not Available Drug Allergy Ursodiol Info Not Available Drug Allergy Iodine Info Not Available Drug Allergy Problems Problem Type Condition Code Onset Dates Condition Status Assessment Coronary artery disease involving [place] coronary artery without angina pectoris, unspecified whether [place] or transplanted heart I25.10 Active Problem S/p nephrectomy Z90.5 Active Problem Frequent UTI N39.0 Active Problem Mild pulmonary hypertension I27.2 Active Problem Essential hypertension I10 Active Problem Tachycardia R00.0 Active Problem Pure hypercholesterolemia E78.00 Active Problem Coronary artery disease involving [place] coronary artery without angina pectoris, unspecified whether [place] or transplanted heart I25.10 Active Problem Neuropathy G62.9 Active Problem Vitamin D deficiency E55.9 Active Assessment Tachycardia R00.0 Active Assessment Mild pulmonary hypertension I27.2 Active Assessment Neuropathy G62.9 Active Assessment Essential hypertension I10 Active Medications Medication Code System Code Instructions Start Date End Date Status Dosage Aspirin [facility] 08215614494 81 MG Orally Once a day Active 1 tablet Nitrofurantoin Monohyd Macro ND 05109335606 100 MG Orally every 12 hrs Active 1 capsule with food Tizanidine HCl [facility] 28444418020 2 MG Orally once every night Nov 09, 2017 Active 1 tablet as needed Amitriptyline HCl ND 48095153804 25 MG Orally Once a day Active 1 tablet Metoprolol Tartrate ND 71785013102 50 MG Orally Twice a day Active 1 tablet with food Q-Tussin [facility] 46198830867 100 MG/5ML Orally twice a day (bid) as needed (prn) Oct 10, 2017 Active 10 ml as needed ProAir HFA [facility] 49489067405 108 (90 Base) MCG/ACT Inhalation every 4 hrs Active 2 puffs as needed Gabapentin [facility] 83506169367 300 MG Orally Three times a day Active 1 capsule Albuterol ND 0 as needed Active not defined Lisinopril [facility] 93988285085 5 MG Orally Once a day Active 1 tablet Furosemide [facility] 48768670385 20 MG Orally Once a day Active 1 tablet Simvastatin [facility] 69946368253 40 MG Orally Once a day Active 1 tablet in the evening Eliquis [facility] 64119762651 5 MG Orally twice a day Active not defined Vitamin D3 [facility] 17244744956 2000 UNIT Orally Once a day Active 1 capsule Vital Signs Date/Time: Aug 11, 2017 BMI 42.75 Index Weight 273 lbs Height 67 in Temperature 97.7 F Blood Pressure Diastolic 77 mm Hg Blood Pressure Systolic 138 mm Hg Results No Known Results Immunizations Vaccine Administration Date Afluria (IIV4) Flu Vacc IM Aug 11, 2017 Summary Purpose eClinicalWorks Submission
--- OUTSIDE RECORDS SUMMARY | 2018-11-03 20:34 | XMS REPORT ---
Author Author Marium Mckenna Organization [employer] Address Unknown Phone Unavailable Care Team Providers Care Qa Tech Name Role Phone Marium Mckenna CP Unavailable Allergies, Adverse Reactions, Alerts Substance Reaction Event Type Vicodin Info Not Available Drug Allergy Ursodiol Info Not Available Drug Allergy Iodine Info Not Available Drug Allergy Problems Problem Type Condition Code Onset Dates Condition Status Problem S/p nephrectomy Z90.5 Active Problem Pure hypercholesterolemia E78.00 Active Problem Coronary artery disease involving [place] coronary artery without angina pectoris, unspecified whether [place] or transplanted heart I25.10 Active Problem Prediabetes R73.03 Active Problem Current use of prison anticoagulation Z79.01 Active Problem Diverticulitis of large intestine without perforation or abscess with bleeding K57.33 Active Problem Tachycardia R00.0 Active Problem Mild pulmonary hypertension I27.2 Active Problem 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 61087932147 81 MG Orally Once a day Active 1 tablet Eliquis [facility] 23816906315 5 MG Orally twice a day Active not defined Gabapentin [facility] 30756327075 300 MG by mouth three times a day (tid) Active 1 capsule three times a day orally 90 days Tramadol-Acetaminophen [facility] 57588564999 37.5-325 MG Orally Four times a day Active 1 tablets as needed Metronidazole [facility] 69708883307 500 MG Orally every 8 hrs Active 1 tablet Simvastatin [facility] 85368292864 40 mg by mouth daily Active 1 tablet in the evening once a day orally 90 days Sutent [facility] 87449848038 25 MG Orally Once a day Active 1 capsule Metoprolol Tartrate [facility] 56327228968 25 MG Orally Twice a day Active 1 tablet with food Furosemide ND 30927684469 20 MG Orally Once a day Active 1 tablet ProAir HFA [facility] 70725536284 108 (90 Base) MCG/ACT Inhalation every 4 hrs Active 2 puffs as needed Lisinopril ND 14412458324 5 MG Orally Once a day Active 1 tablet Ciprofloxacin HCl ND 43251411255 500 MG Orally Once a day Active 1 tablet Metoprolol Tartrate ND 99683012153 50 mg Orally Twice a day Active 1 tablet with food twice a day orally 90 days Trimethoprim ND 94836041315 100 MG Orally Once a day Active 1 tablet Amitriptyline HCl ND 05870961426 25 MG Orally Once a day Active 1 tablet once a day orally 90 days Vitamin D3 ND 19865575937 2000 UNIT Orally Once a day Active 1 capsule Nitrofurantoin Monohyd Macro ND 40686729775 100 MG Orally every 12 hrs Active 1 capsule with food Albuterol ND 0 as needed Active not defined Vital Signs Date/Time: Oct 21, 2018 BMI 41.19 Index Weight 263 lbs Height 67 in Temperature 98.5 F Blood Pressure Diastolic 87 mm Hg Blood Pressure Systolic 158 mm Hg Results No Known Results Summary Purpose [employer]ClinicalWorks Submission
--- OUTSIDE RECORDS SUMMARY | 2018-11-03 20:34 | XMS REPORT ---
Author Author Jass Reddy Organization [employer] Address Unknown Phone Unavailable Care Team Providers Care Client Technical Support Associate Name Role Phone Jass Reddy CP Unavailable Allergies, Adverse Reactions, Alerts Substance Reaction Event Type Vicodin Info Not Available Drug Allergy Ursodiol Info Not Available Drug Allergy Naproxen Info Not Available Drug Allergy Levofloxacin Info Not Available Drug Allergy Codeine Sulfate Info Not Available Drug Allergy Amlodipine Besylate Info Not Available Drug Allergy Encounters Encounter Location Date Unknown Jass Reddy [...] E78.2 Active Problem Obesity, unspecified E66.9 Active Assessment Obesity, unspecified E66.9 Active Assessment Mixed hyperlipidemia E78.2 Active Assessment Bradycardia, unspecified R00.1 Active Assessment Hypertensive heart disease without heart failure I11.9 Active Medications Medication Code System Code Instructions Start Date End Date Status Dosage Clopidogrel Bisulfate [facility] [address]-13 75 MG Orally Once a day Active 1 tablet Meclizine HCl [facility] [address]-76 25 MG Orally Once a day Active 1 tablet as needed Simvastatin [facility] [address]-18 40 MG Orally Once a day Active 1 tablet in the evening Amlodipine Besylate [facility] [address]-94 10 mg Orally Once a day February 21, 2015 Active 1 tablet Aspirin [facility] [address]-80 81 MG Orally Once a day Active 1 tablet ProAir HFA [facility] [address]-26 108 (90 Base) MCG/ACT Inhalation every 4 hrs Active 2 puffs as needed Tizanidine HCl [facility] [address]-02 2 MG Orally every 8 hrs Active 1 tablet as needed Tramadol-Acetaminophen [facility] [address]-66 37.5-325 MG Orally every 6 hrs Active 2 tablets as needed Gabapentin [facility] [address]-65 300 MG Orally twice a day (bid) Active 1 capsule Nitrofurantoin Macrocrystal [facility] [address]-97 100 mg Orally daily Active 1 capsule Vitamin D3 [facility] [address]-89 2000 UNIT Orally Once a day Active 1 capsule Lisinopril [facility] [address]-93 20 MG Orally Once a day Active 1 tablet Metoprolol Tartrate [facility] [address]-85 50 MG Orally Twice a day Active 1 tablet Amitriptyline HCl [facility] [address]-54 25 MG Orally Once a day Active 1 tablet at bedtime Social History Social History Element Qualifiers Date Reported Tobacco Use: . Are you a: never smoker Aug 26, 2016 Marital Status: . Aug 26, 2016 Do you drink alcohol? . Status: No Aug 26, 2016 Occupation: . Unemployed Aug 26, 2016 Vital Signs Date/Time: Aug 26, 2016 Weight 267 lbs Cardiac Monitoring Heart Rate 70 /min Blood Pressure Diastolic 67 mm Hg Blood Pressure Systolic 130 mm Hg Summary Purpose eClinicalWorks Submission
--- OUTSIDE RECORDS SUMMARY | 2018-11-03 20:34 | XMS REPORT ---
Author Author Marium Mckenna Organization [employer] Address Unknown Phone Unavailable Care Team Providers Care Fixer Boarding Room Name Role Phone Marium Mckenna CP Unavailable Allergies, Adverse Reactions, Alerts Substance Reaction Event Type codeine Info Not Available Drug Allergy Vicodin Info Not Available Drug Allergy Ursodiol Info Not Available Drug Allergy Iodine Info Not Available Drug Allergy Problems Problem Type Condition Code Onset Dates Condition Status Problem Frequent UTI N39.0 Active Problem Coronary artery disease involving [place] coronary artery without angina pectoris, unspecified whether [place] or transplanted heart I25.10 Active Problem S/p nephrectomy Z90.5 Active Problem Current use of intermodal dispatcher anticoagulation Z79.01 Active Problem 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 Active Problem Diverticulitis of large intestine without perforation or abscess with bleeding K57.33 Active Problem Mild pulmonary hypertension I27.2 Active Problem Pure hypercholesterolemia E78.00 Active Problem History of nephrectomy, unilateral Z90.5 Active Problem Tachycardia R00.0 Active Assessment Diverticulitis of large intestine without perforation or abscess with bleeding K57.33 Active Problem Vitamin D deficiency E55.9 Active Problem Neuropathy G62.9 Active Assessment Lower abdominal pain R10.30 Active Problem Essential hypertension I10 Active Medications Medication Code System Code Instructions Start Date End Date Status Dosage Sutent [facility] 54571926692 25 MG Orally Once a day Active 1 capsule ProAir HFA [facility] 50827137210 108 (90 Base) MCG/ACT Inhalation every 4 hrs Active 2 puffs as needed Ciprofloxacin HCl ND 21225769415 500 MG Orally Once a day Active 1 tablet Nitrofurantoin Monohyd Macro ND 09422471032 100 MG Orally every 12 hrs Active 1 capsule with food Simvastatin ND 94641387013 40 mg by mouth daily Active 1 tablet in the evening once a day orally 90 days Eliquis [facility] 55717609754 5 MG Orally twice a day Active not defined Vitamin D3 [facility] 22702583012 2000 UNIT Orally Once a day Active 1 capsule Metronidazole [facility] 85821989650 500 MG Orally every 8 hrs Active 1 tablet Metoprolol Tartrate [facility] 11461453219 25 MG Orally Twice a day Active 1 tablet with food Tizanidine HCl [facility] 11324688173 2 MG by mouth daily Oct 18, 2018 Active 1 tablet as needed once every night orally 90 days Trimethoprim [facility] 58936711574 100 MG Orally Once a day Active 1 tablet Amitriptyline HCl [facility] 62768027809 25 MG Orally Once a day Active 1 tablet once a day orally 90 days Aspirin [facility] 66567288249 81 MG Orally Once a day Active 1 tablet Lisinopril [facility] 37667424621 5 MG Orally Once a day Active 1 tablet Furosemide [facility] 34810575860 20 MG Orally Once a day Active 1 tablet Metoprolol Tartrate [facility] 36952767140 50 mg Orally Twice a day Active 1 tablet with food twice a day orally 90 days Albuterol [facility] 0 as needed Active not defined Tramadol-Acetaminophen [facility] 34213198082 37.5-325 MG Orally Four times a day Active 1 tablets as needed Gabapentin [facility] 61776424616 300 MG by mouth three times a day (tid) Active 1 capsule three times a day orally 90 days Vital Signs Date/Time: Jul 12, 2018 BMI 42.67 Index Weight 272.5 lbs Height 67 in Temperature 97.3 F Blood Pressure Diastolic 77,141 mm Hg Blood Pressure Systolic 173 mm Hg Results No Known Results Summary Purpose eClinicalWorks Submission
--- OUTSIDE RECORDS SUMMARY | 2018-11-03 20:34 | XMS REPORT ---
Author Author Jass Reddy Organization [employer] Address Unknown Phone Unavailable Care Team Providers Care Semiconductor Wafer Inspector Name Role Phone Jass Reddy CP Unavailable Allergies, Adverse Reactions, Alerts Substance Reaction Event Type Vicodin Info Not Available Drug Allergy Ursodiol Info Not Available Drug Allergy Naproxen Info Not Available Drug Allergy Levofloxacin Info Not Available Drug Allergy Codeine Sulfate Info Not Available Drug Allergy Amlodipine Besylate Info Not Available Drug Allergy Encounters Encounter Location Date [place] Oct 14, 2016 bleeding in her mouth [place] Jan 06, 2017 Unknown Jass Reddy MD, [facility] Jan 12, 2017 [place] Aug 26, 2015 echo/carotid/arterial dopplers [place] Aug 04, 2016 [place] Aug 26, 2016 Problems Problem Type Condition ICD-9 Code Onset Dates Condition Status Problem Angina [...] I11.9 Active Problem Bradycardia, unspecified R00.1 Active Assessment Disseminated malignant neoplasm, unspecified C80.0 Active Assessment Mixed hyperlipidemia E78.2 Active Assessment Body mass index (BMI) 40.0-44.9, adult Z68.41 Active Assessment Obesity, unspecified E66.9 Active Assessment Other pulmonary embolism without acute cor pulmonale I26.99 Active Problem Aortic valve disorders 424.1 Active Assessment Bradycardia, unspecified R00.1 Active Problem Mixed hyperlipidemia 272.2 Active Assessment Hypertensive heart disease without heart failure I11.9 Active Problem Benign hypertensive heart disease without heart failure 402.10 Active Medications Medication Code System Code Instructions Start Date End Date Status Dosage Metoprolol Tartrate [facility] [address]-10 50 MG Orally Twice a day Active 1 tablet Simvastatin [facility] [address]-52 40 MG Orally Once a day Active 1 tablet in the evening Amitriptyline HCl [facility] [address]-75 25 MG Orally Once a day Active 1 tablet at bedtime Tizanidine HCl [facility] [address]-74 2 MG Orally every 8 hrs Active 1 tablet as needed Meclizine HCl [facility] [address]-77 25 MG Orally Once a day Active 1 tablet as needed Gabapentin [facility] [address]-93 300 MG Orally twice a day (bid) Active 1 capsule Tramadol-Acetaminophen [facility] [address]-72 37.5-325 MG Orally every 6 hrs Active 2 tablets as needed Vitamin D3 [facility] [address]-62 2000 UNIT Orally Once a day Active 1 capsule ProAir HFA [facility] [address]-76 108 (90 Base) MCG/ACT Inhalation every 4 hrs Active 2 puffs as needed Nitrofurantoin Macrocrystal [facility] [address]-30 100 mg Orally daily Active 1 capsule Lisinopril [facility] [address]-34 5 MG Orally Once a day Active 1 tablet Eliquis [facility] [address]-86 5 MG Orally twice a day (bid) Active 1 tablet Social History Social History Element Qualifiers Date Reported Tobacco Use: . Are you a: never smoker Jan 12, 2017 Marital Status: . Jan 12, 2017 Do you drink alcohol? . Status: No Jan 12, 2017 Occupation: . Unemployed Jan 12, 2017 Vital Signs Date/Time: Jan 12, 2017 Weight 263 lbs Cardiac Monitoring Heart Rate 65 /min Blood Pressure Diastolic 65 mm Hg Blood Pressure Systolic 95 mm Hg Summary Purpose eClinicalWorks Submission
--- OUTSIDE RECORDS SUMMARY | 2018-11-03 20:34 | XMS REPORT ---
Author Author Marium Mckenna Organization [employer] Address Unknown Phone Unavailable Care Team Providers Care Audio Visual Specialist Name Role Phone Marium Mckenna CP Unavailable Allergies, Adverse Reactions, Alerts Substance Reaction Event Type codeine Info Not Available Drug Allergy Vicodin Info Not Available Drug Allergy Ursodiol Info Not Available Drug Allergy Iodine Info Not Available Drug Allergy Problems Problem Type Condition Code Onset Dates Condition Status Problem Coronary artery disease involving [place] coronary artery without angina pectoris, unspecified whether [place] or transplanted heart I25.10 Active Problem Vitamin D deficiency E55.9 Active Problem Pure hypercholesterolemia E78.00 Active Problem 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 Active Problem History of nephrectomy, unilateral Z90.5 Active Problem Current use of terminal superintendent anticoagulation Z79.01 Active Problem Essential hypertension I10 Active Problem Neuropathy G62.9 Active Problem Tachycardia R00.0 Active Problem Mild pulmonary hypertension I27.2 Active Assessment Fall, subsequent encounter W19.XXXD Active Assessment Dizziness R42 Active Problem Frequent UTI N39.0 Active Problem S/p nephrectomy Z90.5 Active Medications Medication Code System Code Instructions Start Date End Date Status Dosage Tramadol-Acetaminophen [facility] 23590965299 37.5-325 MG Orally Four times a day Active 1 tablets as needed Eliquis [facility] 96044374694 5 MG Orally twice a day Active not defined Tizanidine HCl [facility] 14890704528 2 MG by mouth daily Oct 18, 2018 Active 1 tablet as needed once every night orally 90 days ProAir HFA [facility] 53163672767 108 (90 Base) MCG/ACT Inhalation every 4 hrs Active 2 puffs as needed Metoprolol Tartrate ND 40853918478 25 MG Orally Twice a day Active 1 tablet with food Sutent [facility] 54118969778 25 MG Orally Once a day Active 1 capsule Gabapentin [facility] 64420212681 300 MG by mouth three times a day (tid) Active 1 capsule three times a day orally 90 days Amitriptyline HCl [facility] 62044184682 25 MG Orally Once a day Active 1 tablet once a day orally 90 days Albuterol NDC 0 as needed Active not defined Trimethoprim ND 27217538474 100 MG Orally Once a day Active 1 tablet Nitrofurantoin Monohyd Macro [facility] 35146500637 100 MG Orally every 12 hrs Active 1 capsule with food Vitamin D3 [facility] 97019270247 2000 UNIT Orally Once a day Active 1 capsule Metoprolol Tartrate [facility] 38761258160 50 mg Orally Twice a day Active 1 tablet with food twice a day orally 90 days Furosemide [facility] 63330601915 20 MG Orally Once a day Active 1 tablet Lisinopril [facility] 53291947677 5 MG Orally Once a day Active 1 tablet Aspirin [facility] 32114675311 81 MG Orally Once a day Active 1 tablet Simvastatin [facility] 70252978075 40 mg by mouth daily Active 1 tablet in the evening once a day orally 90 days Vital Signs Date/Time: May 24, 2018 BMI 43.69 Index Weight 279 lbs Height 67 in Temperature 98.1 F Blood Pressure Diastolic 76 mm Hg Blood Pressure Systolic 135 mm Hg Results No Known Results Summary Purpose eClinicalWorks Submission
--- OUTSIDE RECORDS SUMMARY | 2018-11-03 20:34 | XMS REPORT ---
Author Author Jass Reddy Organization [employer] Address Unknown Phone Unavailable Care Team Providers Care Geophysical E Logger Name Role Phone Jass Reddy CP Unavailable [...] [place] Oct 14, 2016 [place] Aug 26, 2015 echo/carotid/arterial dopplers [place] Aug 04, 2016 Follow[place]Up [place] Aug 26, 2016 Problems Problem Type Condition ICD-9 Code Onset Dates Condition Status Problem Benign hypertensive heart disease without heart failure 402.10 Active Problem Obesity, unspecified 278.00 Active Problem Angina pectoris 413.9 Active Problem Disseminated malignant neoplasm, unspecified C80.0 Active Problem Hypertensive heart disease without heart failure I11.9 Active Problem Other pulmonary embolism without acute cor pulmonale I26.99 Active Problem Mixed hyperlipidemia E78.2 Active Problem Obesity, unspecified E66.9 Active Problem Bradycardia, unspecified R00.1 Active Problem Nonrheumatic aortic (valve) insufficiency I35.1 Active Assessment Disseminated malignant neoplasm, unspecified C80.0 Active Assessment Obesity, unspecified E66.9 Active Assessment Hypertensive heart disease without heart failure I11.9 Active Assessment Other pulmonary embolism without acute cor pulmonale I26.99 Active Assessment Mixed hyperlipidemia E78.2 Active Problem Aortic valve disorders 424.1 Active Assessment Bradycardia, unspecified R00.1 Active Problem Mixed hyperlipidemia 272.2 Active Medications Medication Code System Code Instructions Start Date End Date Status Dosage Simvastatin [facility] [address]-38 40 MG Orally Once a day Active 1 tablet in the evening Vitamin D3 [facility] [address]-48 2000 UNIT Orally Once a day Active 1 capsule Amitriptyline HCl [facility] [address]-04 25 MG Orally Once a day Active 1 tablet at bedtime Eliquis [facility] [address]-06 5 MG Orally twice a day (bid) Active 1 tablet Metoprolol Tartrate [facility] [address]-94 50 MG Orally Twice a day Active 1 tablet Aspirin [facility] [address]-21 81 MG Orally Once a day Active 1 tablet ProAir HFA [facility] [address]-86 108 (90 Base) MCG/ACT Inhalation every 4 hrs Active 2 puffs as needed Meclizine HCl [facility] [address]-37 25 MG Orally Once a day Active 1 tablet as needed Tizanidine HCl [facility] [address]-53 2 MG Orally every 8 hrs Active 1 tablet as needed Nitrofurantoin Macrocrystal [facility] [address]-02 100 mg Orally daily Active 1 capsule Clopidogrel Bisulfate [facility] [address]-27 75 MG Orally Once a day Active 1 tablet Tramadol-Acetaminophen [facility] [address]-43 37.5-325 MG Orally every 6 hrs Active 2 tablets as needed Lisinopril [facility] [address]-81 20 MG Orally Once a day Active 1 tablet Gabapentin [facility] [address]-71 300 MG Orally twice a day (bid) Active 1 capsule Social History Social History Element Qualifiers Date Reported Tobacco Use: . Are you a: never smoker Oct 14, 2016 Marital Status: . Oct 14, 2016 Do you drink alcohol? . Status: No Oct 14, 2016 Occupation: . Unemployed Oct 14, 2016 Vital Signs Date/Time: Oct 14, 2016 Weight 269 lbs Cardiac Monitoring Heart Rate 77 /min Blood Pressure Diastolic 75 mm Hg Blood Pressure Systolic 130 mm Hg Results CBC w/ Auto Diff and Platelet Platelet(-133-450 K/CMM) 257 RDW(-11.5-14.5 %) 13.7 MCHC(-32.0-36.0 g/dL) 33.0 MCH(-27.0-31.0 pg) 29.2 MCV(-80.0-98.0 fl) 88.3 WBC(-3.7-10.4 K/CMM) 9.6 MPV(-7.4-10.4 fl) 10.5 RBC(-4.20-5.40 M/CMM) 3.41 Hgb(-12.0-16.0 g/dL) 10.0 Hct(-36.0-48.0 %) 30.1 BMP (Basic Metabolic Panel) CO2(-24-32 mEq/L) 26 Chloride Lvl(-95-109 mEq/L) 103 Calcium Lvl(-8.5-10.5 mg/dL) 9.6 eGFR(- mL/min/1.73m2) 77 AGAP(-10.0-20.0 mEq/L) 14.3 Sodium Lvl(-135-145 mEq/L) 139 Potassium Lvl(-3.5-5.1 mEq/L) 4.3 BUN(-7-22 mg/dL) 8 Creatinine Lvl(-0.50-1.40 mg/dL) 0.80 Glucose Lvl(-70-99 mg/dL) 109 Summary Purpose eClinicalWorks Submission
--- OUTSIDE RECORDS SUMMARY | 2018-11-03 20:34 | XMS REPORT ---
Author Author Marium Mckenna Organization [employer] Address Unknown Phone Unavailable Care Team Providers Care Test Equipment Mechanic Name Role Phone Marium Mckenna CP Unavailable Allergies, Adverse Reactions, Alerts Substance Reaction Event Type codeine Info Not Available Drug Allergy Vicodin Info Not Available Drug Allergy Ursodiol Info Not Available Drug Allergy Iodine Info Not Available Drug Allergy Flexeril HBP Non Drug Allergy Levofloxacin HBP Non Drug Allergy Problems Problem Type Condition Code Onset Dates Condition Status Problem Coronary artery disease involving [place] coronary artery without angina pectoris, unspecified whether [place] or transplanted heart I25.10 Active Problem Vitamin D deficiency E55.9 Active Problem Pure hypercholesterolemia E78.00 Active Problem 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 Active Problem History of nephrectomy, unilateral Z90.5 Active Problem Current use of detention anticoagulation Z79.01 Active Problem Essential hypertension I10 Active Problem Neuropathy G62.9 Active Problem Tachycardia R00.0 Active Problem Mild pulmonary hypertension I27.2 Active Assessment Current use of detention anticoagulation Z79.01 Active Assessment Renal cell carcinoma of right kidney C64.1 Active Assessment 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 Active Assessment Coronary artery disease involving [place] coronary artery without angina pectoris, unspecified whether [place] or transplanted heart I25.10 Active Problem Frequent UTI N39.0 Active Assessment History of nephrectomy, unilateral Z90.5 Active Problem S/p nephrectomy Z90.5 Active Medications Medication Code System Code Instructions Start Date End Date Status Dosage Metoprolol Tartrate [facility] 78035206900 50 MG Orally Twice a day Active 1 tablet with food Nitrofurantoin Monohyd Macro ND 95743910712 100 MG Orally every 12 hrs Active 1 capsule with food Furosemide [facility] 75505659005 20 MG Orally Once a day Active 1 tablet Amitriptyline HCl [facility] 77304905109 25 MG Orally Once a day Active 1 tablet Tramadol-Acetaminophen [facility] [address]-24 37.5-325 MG Orally Four times a day Active 1 tablets as needed Sutent [facility] [address]-58 Active not defined Vitamin D3 [facility] 13319561410 2000 UNIT Orally Once a day Active 1 capsule Albuterol ND 0 as needed Active not defined Gabapentin [facility] 73457103174 300 MG Orally Three times a day Active 1 capsule Tizanidine HCl [facility] 68452248008 2 MG Active 1 TABLET NEEDED ONCE EVERY NIGHT ORALLY 90 DAYS Trimethoprim [facility] 81309570345 100 MG Orally Once a day Active 1 tablet Simvastatin [facility] 47664348678 40 MG Orally Once a day Active 1 tablet in the evening ProAir HFA [facility] 17439266110 108 (90 Base) MCG/ACT Inhalation every 4 hrs Active 2 puffs as needed Aspirin [facility] 47196193895 81 MG Orally Once a day Active 1 tablet Eliquis [facility] 09304994897 5 MG Orally twice a day Active not defined Lisinopril [facility] 26192406103 5 MG Orally Once a day Active 1 tablet Vital Signs Date/Time: Dec 23, 2017 BMI 43.85 Index Weight 280 lbs Height 67 in Temperature 98.7 F Blood Pressure Diastolic 78 mm Hg Blood Pressure Systolic 145 mm Hg Results No Known Results Summary Purpose [employer] Submission
--- OUTSIDE RECORDS SUMMARY | 2018-11-03 20:34 | XMS REPORT ---
Author Author Marium Mckenna Organization [employer] Address Unknown Phone Unavailable Care Team Providers Care Bomb Squad Commander Name Role Phone Marium Mckenna CP Unavailable Allergies No Known Allergies Problems Problem Type Condition Code Onset Dates Condition Status Problem Essential hypertension I10 Active Problem Neuropathy G62.9 Active Problem S/p nephrectomy Z90.5 Active Problem Frequent UTI N39.0 Active Problem Coronary artery disease involving [place] coronary artery without angina pectoris, unspecified whether [place] or transplanted heart I25.10 Active Problem Vitamin D deficiency E55.9 Active Problem Pure hypercholesterolemia E78.00 Active Medications Medication Code System Code Instructions Start Date End Date Status Dosage Gabapentin [facility] [address]-67 300 MG Orally Three times a day Active 1 capsule Results No Known Results Summary Purpose [employer] Submission
--- OUTSIDE RECORDS SUMMARY | 2018-11-03 20:34 | XMS REPORT ---
Author Author Marium Mckenna Organization [employer] Address Unknown Phone Unavailable Care Team Providers Care Accreditation Manager Name Role Phone Marium Mckenna CP Unavailable Allergies, Adverse Reactions, Alerts Substance Reaction Event Type codeine Info Not Available Drug Allergy Vicodin Info Not Available Drug Allergy Ursodiol Info Not Available Drug Allergy Iodine Info Not Available Drug Allergy Problems Problem Type Condition Code Onset Dates Condition Status Problem Coronary artery disease involving [place] coronary artery without angina pectoris, unspecified whether [place] or transplanted heart I25.10 Active Problem Vitamin D deficiency E55.9 Active Problem Pure hypercholesterolemia E78.00 Active Problem 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 Active Problem History of nephrectomy, unilateral Z90.5 Active Problem Current use of keno terminal operator anticoagulation Z79.01 Active Problem Essential hypertension I10 Active Problem Neuropathy G62.9 Active Problem Tachycardia R00.0 Active Problem Mild pulmonary hypertension I27.2 Active Assessment Pure hypercholesterolemia E78.00 Active Assessment Essential hypertension I10 Active Assessment Mild pulmonary hypertension I27.2 Active Problem Frequent UTI N39.0 Active Assessment Coronary artery disease involving [place] coronary artery without angina pectoris, unspecified whether [place] or transplanted heart I25.10 Active Problem S/p nephrectomy Z90.5 Active Medications Medication Code System Code Instructions Start Date End Date Status Dosage Lisinopril [facility] 76566938262 5 MG Orally Once a day Active 1 tablet Sutent [facility] 06346163615 25 MG Orally Once a day Active 1 capsule Metoprolol Tartrate [facility] 23920675430 50 mg Orally Twice a day Active 1 tablet with food twice a day orally 90 days Amitriptyline HCl ND 18543950477 25 MG Orally Once a day Active 1 tablet once a day orally 90 days Simvastatin ND 96739415104 40 mg by mouth daily Active 1 tablet in the evening once a day orally 90 days Tramadol-Acetaminophen [facility] 47697857616 37.5-325 MG Orally Four times a day Active 1 tablets as needed Nitrofurantoin Monohyd Macro [facility] 75982207913 100 MG Orally every 12 hrs Active 1 capsule with food Vitamin D3 [facility] 15428216896 2000 UNIT Orally Once a day Active 1 capsule Albuterol ND 0 as needed Active not defined Tizanidine HCl [facility] 68775596179 2 MG by mouth daily Oct 18, 2018 Active 1 tablet as needed once every night orally 90 days Furosemide ND 53215518928 20 MG Orally Once a day Active 1 tablet ProAir HFA [facility] 41464692906 108 (90 Base) MCG/ACT Inhalation every 4 hrs Active 2 puffs as needed Trimethoprim [facility] 71906256339 100 MG Orally Once a day Active 1 tablet Eliquis [facility] 15416116042 5 MG Orally twice a day Active not defined Aspirin [facility] 38341542028 81 MG Orally Once a day Active 1 tablet Gabapentin [facility] 18542746832 300 MG by mouth three times a day (tid) Active 1 capsule three times a day orally 90 days Vital Signs Date/Time: April 21, 2018 BMI 43.38 Index Weight 277 lbs Height 67 in Temperature 98.2 F Blood Pressure Diastolic 85 mm Hg Blood Pressure Systolic 148 mm Hg Results No Known Results Summary Purpose [employer] Submission
--- OUTSIDE RECORDS SUMMARY | 2018-11-03 20:35 | XMS REPORT ---
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 Are you a: never smoker Oct 26, 2016 Marital Status: . Oct 26, 2016 Caffeine intake? . Status: Yes, What type: Coffee, Soft Drinks Oct 26, 2016 Do you exercise? . Answer: Yes Oct 26, 2016 Do you drink alcohol? . Do you drink alcohol? No Oct 26, 2016 Occupation: . Unemployed Oct 26, 2016 Summary Purpose [employer]Works Submission
--- OUTSIDE RECORDS SUMMARY | 2018-11-03 20:35 | XMS REPORT ---
Author Author Marium Mckenna Organization [employer] Address Unknown Phone Unavailable Care Team Providers Care Php Consultant Name Role Phone Marium Mckenna CP Unavailable Allergies, Adverse Reactions, Alerts Substance Reaction Event Type codeine Info Not Available Drug Allergy Vicodin Info Not Available Drug Allergy Ursodiol Info Not Available Drug Allergy Encounters Encounter Location Date NEW PT [facility] [place] Oct 19, 2016 Problems Problem Type Condition ICD-9 Code Onset Dates Condition Status Assessment Essential hypertension I10 Active Assessment S/p nephrectomy Z90.5 Active Assessment Pure hypercholesterolemia E78.00 Active Problem Essential hypertension I10 Active Problem Neuropathy G62.9 Active Problem S/p nephrectomy Z90.5 Active Problem Frequent UTI N39.0 Active Problem Coronary artery disease involving [place] coronary artery without angina pectoris, unspecified whether [place] or transplanted heart I25.10 Active Problem Vitamin D deficiency E55.9 Active Problem Pure hypercholesterolemia E78.00 Active Assessment Coronary artery disease involving [place] coronary artery without angina pectoris, unspecified whether [place] or transplanted heart I25.10 Active Assessment Vitamin D deficiency E55.9 Active Assessment Frequent UTI N39.0 Active Assessment Other acute pulmonary embolism without acute cor pulmonale I26.99 Active Assessment Neuropathy G62.9 Active Medications Medication Code System Code Instructions Start Date End Date Status Dosage Aspirin [facility] [address]-02 81 MG Orally Once a day Active 1 tablet Eliquis [facility] [address]-74 5 MG Orally twice a day Active Unknown Tramadol-Acetaminophen [facility] [address]-74 37.5-325 MG Orally every 6 hrs Active 2 tablets as needed Lisinopril [facility] [address]-51 20 MG Orally Once a day Active 1 tablet Tizanidine HCl [facility] [address]-17 2 MG Orally every 8 hrs Active 1 tablet as needed Doc-Q-Lax [facility] [address]-18 8.6-50 MG Orally Once a day Active 1 tablet in the evening as needed ProAir HFA [facility] [address]-45 108 (90 Base) MCG/ACT Inhalation every 4 hrs Active 2 puffs as needed Nitrofurantoin Monohyd Macro [facility] [address]-93 100 MG Orally every 12 hrs Active 1 capsule with food Simvastatin [facility] [address]-92 40 MG Orally Once a day Active 1 tablet in the evening Metoprolol Tartrate [facility] [address]-36 50 MG Orally Twice a day Active 1 tablet with food Q-Tussin [facility] [address]-67 100 MG/5ML Orally every 4 hrs Active 10 ml as needed Fish Oil [facility] 82262-89515 600 MG Orally Once a day Active 1 capsule Amitriptyline HCl [facility] [address]-99 25 MG Orally Once a day Active 1 tablet Vitamin D3 [facility] [address]-63 2000 UNIT Orally Once a day Active 1 capsule Albuterol Unknown 0 Active Unknown Clopidogrel Bisulfate [facility] [address]-38 75 MG Orally Once a day Active 1 tablet Gabapentin [facility] [address]-49 300 MG Orally Three times a day Active 1 capsule Social History Social History Element Qualifiers Date Reported Tobacco Use: . Are you a: never smoker Oct 19, 2016 Marital Status: . Oct 19, 2016 Caffeine intake? . Status: Yes, What type: Coffee, Soft Drinks Oct 19, 2016 Do you exercise? . Answer: Yes Oct 19, 2016 Do you drink alcohol? . Do you drink alcohol? No Oct 19, 2016 Occupation: . Unemployed Oct 19, 2016 Family history Qualifier Description Comment Date Reported Maternal Grandmother Comment not available Oct 19, 2016 Paternal Grandmother Comment not available Oct 19, 2016 Children Comment not available Oct 19, 2016 Maternal Grandfather Comment not available Oct 19, 2016 Father Comment not available Oct 19, 2016 Brother(s) Comment not available Oct 19, 2016 Mother Comment not available Oct 19, 2016 Paternal Grandfather Comment not available Oct 19, 2016 Sister(s) Comment not available Oct 19, 2016 Other: Comment not available Oct 19, 2016 General Family History Comment not available Oct 19, 2016 Vital Signs Date/Time: Oct 19, 2016 Weight 266 lbs Height 67 in Temperature 96.8 F Blood Pressure Diastolic 80 mm Hg Blood Pressure Systolic 145 mm Hg Summary Purpose [employer]Works Submission
--- OUTSIDE RECORDS SUMMARY | 2018-11-03 20:35 | XMS REPORT ---
Author Author Marium Mckenna Organization [employer] Address Unknown Phone Unavailable Care Team Providers Care Tmr Teacher Name Role Phone Marium Mckenna CP Unavailable Encounters Encounter Location Date Unknown [facility] [place] Oct 30, 2016 Unknown [facility] [place] Re[place] Nov 02, 2016 NEW PT [place] Oct 19, 2016 Sick Visit [facility] [place] Re[place], [place] Oct 26, 2016 Unknown Jose [place] Re[place], [place] 2016 Problems Problem Type Condition ICD-9 Code Onset Dates Condition Status Problem Essential hypertension I10 Active Problem Neuropathy G62.9 Active Problem S/p nephrectomy Z90.5 Active Problem Frequent UTI N39.0 Active Problem Coronary artery disease involving [place] coronary artery without angina pectoris, unspecified whether [place] or transplanted heart I25.10 Active Problem Vitamin [...]
--- OUTSIDE RECORDS SUMMARY | 2018-11-03 20:35 | XMS REPORT ---
Author Author Marium Mckenna Organization [employer] Address Unknown Phone Unavailable Care Team Providers Care Performance Manager Name Role Phone Marium Mckenna CP Unavailable Allergies, Adverse Reactions, Alerts Substance Reaction Event Type codeine Info Not Available Drug Allergy Vicodin Info Not Available Drug Allergy Ursodiol Info Not Available Drug Allergy Encounters Encounter Location Date NEW PT [place] Oct 19, 2016 Sick Visit [facility] [place] Re[place] Oct 26, 2016 Problems Problem Type Condition ICD-9 Code Onset Dates Condition Status Assessment Pure hypercholesterolemia E78.00 Active Assessment Essential hypertension I10 Active Assessment Neuropathy G62.9 Active Assessment Renal cell carcinoma, unspecified laterality C64.9 Active Assessment Vitamin D deficiency E55.9 Active Problem Essential hypertension I10 Active Problem Neuropathy G62.9 Active Problem S/p nephrectomy Z90.5 Active Problem Frequent UTI N39.0 Active Problem Coronary artery disease involving [place] coronary artery without angina pectoris, unspecified whether [place] or transplanted heart I25.10 Active Problem Vitamin D deficiency E55.9 Active Problem Pure hypercholesterolemia E78.00 Active Medications Medication Code System Code Instructions Start Date End Date Status Dosage ProAir HFA [facility] [address]-99 108 (90 Base) MCG/ACT Inhalation every 4 hrs Active 2 puffs as needed Tizanidine HCl [facility] [address]-03 2 MG Orally every 8 hrs Active 1 tablet as needed Clopidogrel Bisulfate [facility] [address]-77 75 MG Orally Once a day Active 1 tablet Albuterol Unknown 0 Active Unknown Eliquis [facility] [address]-36 5 MG Orally twice a day Active Unknown Simvastatin [facility] [address]-01 40 MG Orally Once a day Active 1 tablet in the evening Tramadol-Acetaminophen [facility] [address]-61 37.5-325 MG Orally three times a day (tid) as needed (prn) Nov 25, 2016 Active 1 tablet Aspirin [facility] [address]-89 81 MG Orally Once a day Active 1 tablet Vitamin D3 [facility] [address]-94 2000 UNIT Orally Once a day Active 1 capsule Doc-Q-Lax [facility] [address]-73 8.6-50 MG Orally Once a day Active 1 tablet in the evening as needed Metoprolol Tartrate [facility] [address]-14 50 MG Orally Twice a day Active 1 tablet with food Lisinopril [facility] [address]-56 20 MG Orally Once a day Active 1 tablet Fish Oil [facility] 29949-12619 600 MG Orally Once a day Active 1 capsule Amitriptyline HCl [facility] [address]-48 25 MG Orally Once a day Active 1 tablet Nitrofurantoin Monohyd Macro [facility] [address]-95 100 MG Orally every 12 hrs Active 1 capsule with food Gabapentin [facility] [address]-81 300 MG Orally Three times a day Active 1 capsule Q-Tussin [facility] [address]-39 100 MG/5ML Orally every 4 hrs Active 10 ml as needed Social History Social History Element Qualifiers Date [...] 2016 Occupation: . Unemployed Oct 26, 2016 Vital Signs Date/Time: Oct 26, 2016 Weight 262 lbs Height 67 in Temperature 95.9 F Blood Pressure Diastolic 68 mm Hg Blood Pressure Systolic 121 mm Hg Summary Purpose eClinicalWorks Submission
--- OUTSIDE RECORDS SUMMARY | 2018-11-03 20:35 | XMS REPORT ---
Author Author Marium Mckenna Organization [employer] Address Unknown Phone Unavailable Care Team Providers Care Shoe Repair Supervisor Name Role Phone Marium Mckenna CP Unavailable Encounters Encounter Location Date Unknown [facility] [place], [place] Oct 30, 2016 Unknown [facility] [place] Re[place] Nov 02, 2016 Unknown [facility] Re[place], [place] Nov 02, 2016 Other Jose Maria Reyes MD, [place] Nov 20, 2016 NEW PT [place] Re[place], [place] Oct 19, 2016 Sick Visit Jose Maria Reyes MD, [place] Oct 26, 2016 Unknown Jose [place] Reyes MD, [place] 2016 Problems Problem Type Condition ICD-9 Code Onset Dates Condition Status Problem Essential hypertension I10 Active Problem Neuropathy G62.9 Active Problem S/p nephrectomy Z90.5 Active Problem Frequent UTI N39.0 Active Problem Coronary artery disease involving [place] coronary artery without angina pectoris, unspecified whether [place] or transplanted heart I25.10 Active Problem Vitamin [...]
--- OUTSIDE RECORDS SUMMARY | 2018-11-03 20:35 | XMS REPORT | Summary of Care ---
Author Author [facility] Organization [facility] Address Unknown Phone Unavailable Encounter RAMON Martin(MATTHEW) [id number] Date(s): 01/06/17 - 01/06/17 [facility] [address] [place] [address]- Discharge Diagnosis: Dental infection Discharge Disposition: Home or Self Care Attending Physician: Grazyna Miller DO Vital Signs 1 2 3 Most recent to oldest [Reference Range]: 167.64 cm (01/06/17 4:00 PM) Height 98.0 DegF (01/06/17 9:30 PM) 98.2 DegF (01/06/17 4:00 PM) Temperature Oral [96.4-99.1 DegF] 125/63 mmHg (01/06/17 9:30 PM) 149/76 mmHg *HI* (01/06/17 8:05 PM) 159/81 mmHg *HI* (01/06/17 4:00 PM) Blood Pressure [90-140/60-90 mmHg] 16 BRMIN (01/06/17 9:30 PM) 18 BRMIN (01/06/17 8:05 PM) 18 BRMIN (01/06/17 4:00 PM) Respiratory Rate [14-20 BRMIN] 62 bpm (01/06/17 9:30 PM) 63 bpm (01/06/17 8:05 PM) 69 bpm (01/06/17 4:00 PM) Peripheral Pulse Rate [60-100 bpm] 117.727 kg (01/06/17 4:00 PM) Weight 41.89 m2 (01/06/17 4:00 PM) Body Mass Index Problem List Condition Effective Dates Status Health Status Informant Renal cell Resolved carcinoma(Confirmed) Allergies, Adverse Reactions, Alerts Substance Reaction Severity Status codeine Active corticosteroids Active iodine Active ursodiol Active Vicodin Active Medications No data available for this section Results No data available for this section Immunizations No data available for this section Procedures No data available for this section Social History Social History Type Response Smoking Status Never smoker; Exposure to Tobacco Smoke None; Cigarette Smoking Last 365 Days No; Reg Smoking Cessation Counseling No Assessment and Plan No data available for this section
--- OUTSIDE RECORDS SUMMARY | 2018-11-03 20:35 | XMS REPORT | Summary of Care ---
Author Author [facility] Organization [facility] Address Unknown Phone Unavailable Encounter HQ Veronica(FIN) [id number] Date(s): 04/20/18 - 04/20/18 [facility] [address], [address] [place] [address] [phone] Discharge Disposition: Home or Self Care Attending Physician: Jose G Sutton MD Vital Signs No data available for this section Problem List Condition Effective Dates Status Health Status Informant Morbid Active obesity(Confirmed) Renal cell Resolved carcinoma(Confirmed) Allergies, Adverse Reactions, Alerts Substance Reaction Severity Status codeine Active ursodiol Active Vicodin Active corticosteroids Active iodine Active Medications trimethoprim 100 mg oral tablet 100 mg=1 tab, PO, Daily, # 90 tab, 4 Refill(s), Pharmacy: [facility] [id number] Start Date: 04/20/18 Stop Date: 07/14/19 Status: Ordered Results URINE AND STOOL Most recent to 1 oldest [Reference Range]: POC UA Turbidity Clear [Clear] *NA* (04/20/18 12:43 PM) POC UA Color Yellow [Yellow] *NA* (04/20/18 12:43 PM) POC UA pH [5.0-8.0] 5.5 (04/20/18 12:43 PM) POC UA SG [<=1.030] 1.015 (04/20/18 12:43 PM) POC UA Glu [Negative Negative mg/dL mg/dL] *NA* (04/20/18 12:43 PM) POC UA Bld Small [Negative] *ABN* (04/20/18 12:43 PM) POC UA Ket [Negative Negative mg/dL mg/dL] *NA* (04/20/18 12:43 PM) POC UA Prot Negative mg/dL [Negative mg/dL] *NA* (04/20/18 12:43 PM) POC UA Uro [0.1-1.0 0.2 EU/dL EU/dL] (04/20/18 12:43 PM) POC UA Bili Negative [Negative] *NA* (04/20/18 12:43 PM) POC UA LeukEst Small [Negative] *ABN* (04/20/18 12:43 PM) POC UA Nit Positive [Negative] *ABN* (04/20/18 12:43 PM) Immunizations No data available for this section Procedures Procedure Date Related Diagnosis Body Site Status Hernia repair Completed Hysterectomy Completed Nephrectomy Completed Social History Social History Type Response Smoking Status Never smoker; Exposure to Tobacco Smoke None; Cigarette Smoking Last 365 Days No; Reg Smoking Cessation Counseling No entered on: 01/17/18 Assessment and Plan No data available for this section
--- OUTSIDE RECORDS SUMMARY | 2018-11-03 20:35 | XMS REPORT ---
Author Author [email or web address] Address Unknown Phone Unavailable Care Team Providers Care Cane Flume Watchman Name Role Phone Unavailable Unavailable Payers Payer Name Policy Type Policy Number Effective Date Expiration Date Problems This patient has no known problems. Allergies, Adverse Reactions, Alerts Allergy Name Allergy Type Status Severity Reaction(s) Onset Date Inactive Date Treating Clinician Comments hydrocodone bit DA Active U 2018-07-05 00:00:00 iodine DA Active AK 2018-07-05 00:00:00 ursodiol DA Active U 2018-07-05 00:00:00 codeine DA Active U 2018-07-05 00:00:00 naproxen DA Active AK 2018-07-05 00:00:00 sulfamethoxazole DA Active U 2018-07-05 00:00:00 trimethoprim DA Active U 2018-07-05 00:00:00 cyclobenzaprine DA Active U 2018-07-05 00:00:00 levofloxacin DA Active MO 2018-07-05 00:00:00 Medications This patient has no known medications.
--- OUTSIDE RECORDS SUMMARY | 2018-11-03 20:35 | XMS REPORT | Summary of Care ---
Author Author [facility] Organization [facility] Address Unknown Phone Unavailable Encounter HQ Leor_patsy(FIN) [id number] Date(s): 10/18/17 - 10/18/17 [facility] [address] [facility] [place], [phone] [phone] Discharge Disposition: Home or Self Care Attending Physician: Jose G Sutton MD Vital Signs Most recent to 1 oldest [Reference Range]: Blood Pressure 120/87 mmHg [90-140/60-90 mmHg] (10/18/17 11:23 AM) Peripheral Pulse 87 bpm Rate [60-100 bpm] (10/18/17 11:23 AM) Problem List Condition Effective Dates Status Health Status Informant Morbid Active obesity(Confirmed) Renal cell Resolved carcinoma(Confirmed) Allergies, Adverse Reactions, Alerts Substance Reaction Severity Status codeine Active ursodiol Active Vicodin Active corticosteroids Active iodine Active Medications trimethoprim 100 mg oral tablet 100 mg=1 tab, PO, Daily, X 30 day, # 30 tab, 0 Refill(s), Pharmacy: [facility] [id number] Start Date: 10/18/17 Stop Date: 11/17/17 Status: Ordered Results No data available for this section Immunizations No data available for this section Procedures Procedure Date Related Diagnosis Body Site Cystourethroscopy (separate procedure) 10/18/17 Hernia repair Hysterectomy Nephrectomy Social History Social History Type Response Smoking Status Unknown if ever smoked; Exposure to Tobacco Smoke None; Cigarette Smoking Last 365 Days Unable to obtain; Reg Smoking Cessation Counseling No Assessment and Plan No data available for this section
--- OUTSIDE RECORDS SUMMARY | 2018-11-03 20:35 | XMS REPORT | Summary of Care ---
Author Author [facility] [place] Organization [facility] [place] Address Unknown Phone Unavailable Encounter RAMON Martin(FIN) [id number] Date(s): 01/17/18 - 01/17/18 [facility] [place] [address] [phone] [phone] Discharge Disposition: Home or Self Care Attending Physician: Jose G Sutton MD Vital Signs Most recent to 1 oldest [Reference Range]: Height 170.18 cm (01/17/18 4:04 PM) Blood Pressure 118/69 mmHg [90-140/60-90 mmHg] (01/17/18 4:04 PM) Peripheral Pulse 74 bpm Rate [60-100 bpm] (01/17/18 4:04 PM) Weight 127.273 kg (01/17/18 4:04 PM) Body Mass Index 43.95 m2 (01/17/18 4:04 PM) Problem List Condition Effective Dates Status Health Status Informant Morbid Active obesity(Confirmed) Renal cell Resolved carcinoma(Confirmed) Allergies, Adverse Reactions, Alerts Substance Reaction Severity Status codeine Active ursodiol Active Vicodin Active corticosteroids Active iodine Active Medications trimethoprim 100 mg oral tablet 100 mg=1 tab, PO, Daily, X 90 day, # 90 tab, 0 Refill(s), Pharmacy: [facility] [id number] Start Date: 03/11/18 Stop Date: 04/20/18 Status: Completed Results URINE AND STOOL Most recent to 1 oldest [Reference Range]: POC UA Turbidity Clear [Clear] *NA* (01/17/18 10:59 AM) POC UA Color Yellow [Yellow] *NA* (01/17/18 10:59 AM) POC UA pH [5.0-8.0] 5.0 (01/17/18 10:59 AM) POC UA SG [<=1.030] 1.010 (01/17/18 10:59 AM) POC UA Glu [Negative Negative mg/dL mg/dL] *NA* (01/17/18 10:59 AM) POC UA Bld Small [Negative] *ABN* (01/17/18 10:59 AM) POC UA Ket [Negative Negative mg/dL mg/dL] *NA* (01/17/18 10:59 AM) POC UA Prot Negative mg/dL [Negative mg/dL] *NA* (01/17/18 10:59 AM) POC UA Uro [0.1-1.0 0.2 EU/dL EU/dL] (01/17/18 10:59 AM) POC UA Bili Negative [Negative] *NA* (01/17/18 10:59 AM) POC UA LeukEst Negative [Negative] *NA* (01/17/18 10:59 AM) POC UA Nit Negative [Negative] *NA* (01/17/18 10:59 AM) Immunizations No data available for this section [...]
--- OUTSIDE RECORDS SUMMARY | 2018-11-03 20:35 | XMS REPORT ---
Author Author Marium Mckenna Organization [employer] Address Unknown Phone Unavailable Care Team Providers Care Outdoor Landscape Architect Name Role Phone Marium Mckenna CP Unavailable [...] Unknown Jose Maria Reyes MD, PA 2016 refill Jose Maria Reyes MD, PA Dec 24, 2016 Problems Problem Type Condition ICD-9 Code Onset Dates Condition Status Problem Essential hypertension I10 Active Problem Neuropathy G62.9 Active Problem S/p nephrectomy Z90.5 Active Problem Frequent UTI N39.0 Active Problem Coronary artery disease involving [place] coronary artery without angina pectoris, unspecified whether [place] or transplanted heart I25.10 Active Problem Vitamin D deficiency E55.9 Active Problem Pure hypercholesterolemia E78.00 Active Medications Medication Code System Code Instructions Start Date End Date Status Dosage Gabapentin MEDISPAN [address]-71 300 MG Orally Three times a day [...]
--- OUTSIDE RECORDS SUMMARY | 2018-11-03 20:35 | XMS REPORT ---
Author Author Marium Mckenna Organization [employer] Address Unknown Phone Unavailable Care Team Providers Care Learning Center Coordinator Name Role Phone Marium Mckenna CP Unavailable [...] N39.0 Active Problem Coronary artery disease involving [place] coronary artery without angina pectoris, unspecified whether [place] or transplanted heart I25.10 Active Problem Vitamin [...]
--- OUTSIDE RECORDS SUMMARY | 2018-11-03 20:35 | XMS REPORT ---
Author Author Marium Mckenna [facility] [employer] Address Unknown Phone Unavailable Care Team Providers Care Heavy Mobile Equipment Operator Name Role Phone Marium Mckenna Unavailable Allergies, Adverse Reactions, Alerts Substance Reaction Event Type codeine Info Not Available Drug Allergy Vicodin Info Not Available Drug Allergy Ursodiol Info Not Available Drug Allergy Iodine Info Not Available Drug Allergy Encounters Encounter Location Date Unknown Jose Maria [...] Unknown Jose Maria Reyes MD, [place] 2016 Sick Visit Jose Maria Reyes MD, PA January 21, 2017 refill Jose Maria Reyes MD, PA Dec 24, 2016 refills Jose Maria Reyes MD, PA January 15, 2017 Problems Problem Type Condition ICD-9 Code Onset Dates Condition Status Assessment Pure hypercholesterolemia E78.00 Active Assessment Essential hypertension I10 Active Assessment Neuropathy G62.9 Active Problem Essential hypertension I10 Active Problem Neuropathy G62.9 Active Problem S/p nephrectomy Z90.5 Active Problem Frequent UTI N39.0 Active Problem Coronary artery disease involving [place] coronary artery without angina pectoris, unspecified whether [place] or transplanted heart I25.10 Active Problem Vitamin D deficiency E55.9 Active Problem Pure hypercholesterolemia E78.00 Active Assessment Other chronic pulmonary embolism without acute cor pulmonale I27.82 Active Assessment Tooth infection K04.7 Active Assessment Coronary artery disease involving [place] coronary artery without angina pectoris, unspecified whether [place] or transplanted heart I25.10 Active Medications Medication Code System Code Instructions Start Date End Date Status Dosage Fish Oil [facility] [address]43 600 MG Orally Once a day Active 1 capsule Tizanidine HCl [facility] [address]-23 2 MG Orally every 8 hrs Active 1 tablet as needed Simvastatin [facility] [address]-19 40 MG Orally Once a day Active 1 tablet in the evening Albuterol Unknown 0 Active Unknown Aspirin [facility] [address]-15 81 MG Orally Once a day Active 1 tablet Nitrofurantoin Monohyd Macro [facility] [address]-42 100 MG Orally every 12 hrs Active 1 capsule with food Metoprolol Tartrate [facility] [address]-08 50 MG Orally Twice a day Active 1 tablet with food Clopidogrel Bisulfate [facility] [address]-99 75 MG Orally Once a day Active 1 tablet Amitriptyline HCl [facility] [address]-03 25 MG Orally Once a day Active 1 tablet Gabapentin [facility] [address]-44 300 MG Orally Three times a day Active 1 capsule Lisinopril [facility] [address]-81 20 MG Orally Once a day Active 1 tablet Doc-Q-Lax [facility] [address]-36 8.6-50 MG Orally Once a day Active 1 tablet in the evening as needed Eliquis [facility] [address]-21 5 MG Orally twice a day Active Unknown ProAir HFA [facility] [address]-33 108 (90 Base) MCG/ACT Inhalation every 4 hrs Active 2 puffs as needed Vitamin D3 [facility] [address]-08 2000 UNIT Orally Once a day Active 1 capsule Q-Tussin [facility] [address]-53 100 MG/5ML Orally every 4 hrs Active 10 ml as needed Social History Social History Element Qualifiers Date Reported Tobacco Use: . Are you a: never smoker January 21, 2017 Marital Status: . January 21, 2017 Caffeine intake? . Status: Yes, What type: Coffee, Soft Drinks January 21, 2017 Do you exercise? . Answer: Yes January 21, 2017 Do you drink alcohol? . Do you drink alcohol? No January 21, 2017 Occupation: . Unemployed January 21, 2017 Vital Signs Date/Time: January 21, 2017 Weight 262.5 lbs Height 67 in Temperature 96.3 F Blood Pressure Diastolic 68 mm Hg Blood Pressure Systolic 114 mm Hg Summary Purpose [employer] Submission
--- OUTSIDE RECORDS SUMMARY | 2018-11-03 20:35 | XMS REPORT ---
Author Author Marium Mckenna Organization [employer] Address Unknown Phone Unavailable Care Team Providers Care Marketing Pr Intern Name Role Phone Marium Mckenna CP Unavailable [...] N39.0 Active Problem Coronary artery disease involving [place] coronary artery without angina pectoris, unspecified whether [place] or transplanted heart I25.10 Active Problem Vitamin D deficiency E55.9 Active Problem Pure hypercholesterolemia E78.00 Active Medications Medication Code System Code Instructions Start Date End Date Status Dosage Simvastatin [facility] [address]-22 40 MG Orally Once a day Active 1 tablet in the evening Social History Social History Element Qualifiers Date [...]
--- OUTSIDE RECORDS SUMMARY | 2018-11-03 20:35 | XMS REPORT ---
Author Author Marium Mckenna Organization [employer] Address Unknown Phone Unavailable Care Team Providers Care Angle Roll Operator Name Role Phone Marium Mckenna CP Unavailable Encounters Encounter Location Date NEW PT Jose [...] N39.0 Active Problem Coronary artery disease involving [place] coronary artery without angina pectoris, unspecified whether [place] or transplanted heart I25.10 Active Problem Vitamin [...]
--- NOTE | 2018-11-03 22:47 | Diagnostic Imaging Report ---
TIB/FIB 2VW RT - HOPD Comparison: None Clinical history: Pain, car door closed on the lower right leg Findings: Moderate visualized knee degenerative changes. Achilles enthesophyte and plantar calcaneal spur. Slight cortical irregularity of the distal lateral fibula. No displaced fracture. Impression: Age-indeterminate slight cortical irregularity of the distal lateral fibula; subtle nondisplaced fracture not excluded given mechanism of injury. Correlate with site of pain and recommend short term radiographic follow up. Signed by: Dr Mague Cisneros MD on 11/03/2018 10:44 PM
[2018-11-03 23:59] VITALS: BP 139/86
== END 2018-11-03 23:00 | disposition home or self-care (01) ==
LOC: FSED 20:29
DX: S82.424A Nondisplaced transverse fracture of shaft of right fibula, initial encounter for closed fracture (principal); S80.11XA Contusion of right lower leg, initial encounter; W22.8XXA Striking against or struck by other objects, initial encounter; Y92.89 Other specified places as the place of occurrence of the external cause; I10 Essential (primary) hypertension; E11.9 Type 2 diabetes mellitus without complications; I50.9 Heart failure, unspecified; Z86.73 Personal history of transient ischemic attack (TIA), and cerebral infarction without residual deficits; Z85.53 Personal history of malignant neoplasm of renal pelvis
CPT/HCPCS: 99283

== ENCOUNTER 2020-01-31 14:10 | Emergency (ER) | payer MEDICARE, OTHER ==
[~2020-01-31] VITALS: Ht 170.2 cm; Wt 126.1 kg
--- OUTSIDE RECORDS SUMMARY | 2020-01-31 14:15 | XMS REPORT | Summary of Care ---
Author Author [facility] Organization [facility] Address Unknown Phone Unavailable Care Team Providers Care Kiln Stacker Name Role Phone Marium Mckenna MD PCP Reason for Referral * Radiology Services (Routine) Referred By Contact Referred To Contact Status Reason Specialty Diagnoses / Procedures Doris Viveros MD [address], [address] [place] [address] Radiology, [address] [address] Pending Radiology Diagnoses Renal cell carcinoma, unspecified laterality (HCCode) P rocedures CT CHEST ABDOMEN PELVIS W CONTRAST * (Routine) Referred By Contact Referred To Contact Status Reason Specialty Diagnoses / Procedures Doris Viveros MD [facility] [address], [address] [place] [address] Pending Consult, Test, and Physical Therapy Diagnoses Treat Multiple falls Reason for Visit * Reason Comments Follow Up Encounter Details Care Team Description Date Type Department Doris Viveros MD [address], [address] [place], [place] [id number] Follow Up 01/05/2020 Office Visit [facility] [place] [address], [address] [place] [address] Allergies Comments Active Allergy Reactions Severity Noted Date Codeine Nausea And High 09/22/2016 Vomiting High blood pressure, elevated blood sugar Corticosteroids 12/04/2016 Hydrocodone-Acetaminophen Nausea And High 09/22/2016 Vomiting Iodinated Diagnostic 08/20/2016 Agents Bruising bruising Levofloxacin Other (See High 08/20/2016 Comments) Naproxen 08/20/2016 bruising bruising Ursodiol Other (See High 08/20/2016 Comments) Hydrocodone-Acetaminophen Nausea And 08/20/2016 Vomiting documented as of this encounter (statuses as of 01/06/2020) Medications End Date Status Medication Sig Dispensed Refills Start Date Active TIZANIDINE HCL Take 2 mg by 0 ORIndications: Hematuria, mouth daily. 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 unspecified laterality (HCCode) Active PROAIR HFA 108 (90 BASE) 0 MCG/ACT inhaler 7 Active lisinopril (PRINIVIL, 0 ZESTRIL) 5 MG tablet 7 Active tramadol-acetaminophen 0 (ULTRACET) 37.5-325 MG 7 per tablet Active furosemide (LASIX) 20 MG Take 20 mg by 0 tabletIndications: Renal mouth daily. cell carcinoma, unspecified laterality (HCCode) Active metoprolol (LOPRESSOR) 25 Take 25 mg by 0 MG tablet mouth two times daily. Active metoprolol (LOPRESSOR) 50 TK 1 T PO BID 1 MG tablet WF 8 Active tizanidine (ZANAFLEX) 2 TK 1 T PO Q 1 MG tablet NIGHT PRN 8 Active Apixaban (ELIQUIS) 5 MG Take 5 mg by 60 Tab 3 TABSIndications: Renal mouth two 8 cell carcinoma, times daily. unspecified laterality (HCCode) Active nitrofurantoin Take 1 Cap by 30 Cap 6 (MACRODANTIN) 100 MG mouth 9 capsule nightly. documented as of this encounter (statuses as of 01/06/2020) Active Problems Problem Noted Date Lower abdominal pain 07/05/2018 Urinary tract infection without hematuria 07/05/2018 Leg swelling 02/11/2018 Angina at rest (HCCode) 02/11/2018 Elevated TSH 06/08/2017 Morbid obesity due to excess calories (HCCode) 03/17/2017 Renal cell carcinoma (HCCode) 11/03/2016 Anemia 10/06/2016 Hemodynamic instability 10/06/2016 Renal cell carcinoma, right (HCCode) 10/06/2016 Asthma 10/05/2016 Atrophic kidney, acquired 10/05/2016 Chronic bronchitis (HCCode) 10/05/2016 History of frequent urinary tract infections 10/05/2016 TIA (transient ischemic attack) 10/05/2016 Morbid obesity with BMI of 40.0-44.9, adult (HCCode) 10/05/2016 Arthritis Hyperlipidemia 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 documented as of this encounter Last Filed Vital Signs Reading Time Taken Comments Vital Sign 141/70 01/05/2020 3:05 PM [facility] Blood Pressure 79 01/05/2020 3:05 PM [facility] Pulse 35 C (95 F) 01/05/2020 3:05 PM [facility] Temperature 18 01/05/2020 3:05 PM [facility] Respiratory Rate - - Oxygen Saturation - - Inhaled Oxygen Concentration 124.3 kg (274 lb) 01/05/2020 3:05 PM [facility] Weight 167.6 cm (5' 6") 01/05/2020 3:05 PM [facility] Height 44.22 01/05/2020 3:05 PM [facility] Body Mass Index documented in this encounter Patient Instructions * Patient Instructions* Marija Dave MA - 01/05/2020 4:00 PM [facility] SECTION OF ONCOLOGY/HEMATOLOGY [phone] FAX [phone] Please note that all labs and or imaging results will be discussed at the next o ffice visit unless told otherwise. if a problem occurs after hours please contact our office and have physician national recruiter paged [phone] Patient Instructions: (to be completed before next visit) Return to clinic in 3 months with labs and CT prior TELL US ABOUT YOUR EXPERIENCE You may receive an email or letter from [facility] via our partn er, [employer]. This is a survey about your experience today. Your feedback is important to us so we can improve. If any question does not apply to your visit, please leave it blank. Our goal is to ensure you have an exceptional experience at [facility]. If for any reason you cannot rate your experience as very good, pl ease let a member of our staff know so we can make immediate improvements. Please don't hesitate to call if you have any questions or concerns before your appt. Thanks Marija Dave CMA II C[facility]TER documented in this encounter Progress Notes * Vic John NP - 01/05/2020 4:00 PM [facility] Medical Oncology Clinic Note Referred By: Dr Danial Jean Cancer: kidney cancer s/p right nephrectomy 10/05/16 [id number] stage III Interim History 01/05/20: Here after completing 1 year of adjuvant sunitinib 02/2019 and on obser vation/ surveillance. Here for review of images. No recent falls since [place] as documented in last clinic visit. No new interim complaints, staying active around the house but not overdoing it and still travelling some. Following cardiology close with loop recorder in plac e. No CP/SOB, no palpitations, no N/V/D/C, no F/C/NS, no hematuria, no bleeding evidence elsewhere. History of Present Illness: -pt with a history of left kidney cyst, recurrent UTIs, atrophic right kidney an d also chronic back pain. Her daughter reports scans were done to evaluate these and an incidental right kidney mass was found. This was mid -late 2015. She was being followed by Dr Maldonado -06/2016 right kidney U/s showed a mass -NM renal scan- showed 86/14 in favor of the left kidney -07/29/16 ER at [facility] of UTI and had a CT - 6cm right kidney mass with IVC thrombus up to level of the liver edge. MRI confirmed the same. -referred to Dr Danial Jean and appt 08/20/2016 -08/24/16 CT chest- indeterminate 3mm LLL pulm nodule; mild enlargement of LV an d LA and mild enlargement main pulm artery -08/24/16 bilateral doppler LE- no DVTs -09/01/16 MRI brain- no [employer] emboli or intracranial abnormalities -10/05/16- had right radical nephrectomy, RPLND, and IVC thrombectomy, complicat ed by finding of emboli to right atrium then main pulm artery, and had further m edian sternotomy, CPB, aortic and bicaval cannulation, main pulm artery and righ t branch pum artery arteriotomy with tumor embolectomy, [facility] ([facility]/ [facility]) Path- right kidney, LN- conventional clear cell RCC, FG 3, 7.2 cm x 4.5 x 3.5 cm , superior pole, grossly invades renal vein and extends to vascular margin. No L . Ureteral and arterial margins negative. No PNI. 0/4 LN involved. Thrombus: p ortions of blood clot- negative for tumor. -10/09/16 CT chest PE protocol: evidence of PE to the RLL with small right sided pleural effusion - 12/14/16 CT chest AMANDO - 12/14/16 MRI abdomen AMANDO - 03/16/17 CT chest AMANDO - 03/16/17 MRI abdomen AMANDO, pulmonary hypertension - 06/07/17 CT CAP w/o contrast: AMADNO - 10/28/17 CT chest w/o contrast: Peribronchial cuffing, likely viral etiologies /atypical infection versus reactive airway. No suspicious nodules - 10/28/17 MRI abdomen w/o contrast: Status post total right nephrectomy. No zunilda dence of local recurrence or metastatic disease within the abdomen. Slight inter britney increase in size of a left lower pole parapelvic cyst currently measuring 5. 5 cm in maximal dimension - 11/22/17 CT CAP w contrast: Right nephrectomy. No evidence of local recurrence. No distal metastases. 0.7 cm nonobstructing left renal stone - 04/15/18 CT CAP: 1. Right nephrectomy. No evidence of local recurrence. 2. No distal metastases. 3. 0.7 cm nonobstructing left renal stone - 06/22/18 CT A/P at [place]: SD per report since August last year. Will load to [facility] - 08/10/18 CT chest: NEMD - 09/02/18 MRI abdomen: No evidence of tumor recurrence in abdomen; T9 lesion - 09/30/18 MRI thoracic spine: T9 vertebral body lesion is favored to reflect re active changes along a superior endplate Schmorl's node. Metastatic lesion is a less likely consideration. 06/07/19 CT CAP w/ contrast: AMANDO. subcm left kidney stone. Suspected left extrare nal pelvis. 09/11/19 MRI brain: 1. No acute intracranial abnormalities. 2. Stable mild chronic microvascular ischemic changes compared to MRI 6. 3. No evidence of metastatic disease. 09/11/[address] evidence for acute chest, abdomen or pelvic pathology. No specific evidence for recurrence or metastasis of right renal carcinoma. Slight increase in size of nonobstructing left intrarenal calculus which now yasmin sures 1.0 cm. Large parapelvic cyst of the central left kidney is unchanged, producing mild fullness of the upper pole collecting system. -12/26/2019 CT CAP: Impression: Status post right nephrectomy and adrenalectomy. No mass or lymphadenopathy identified in the chest, abdomen or pelvis. Stable mi ld to moderate left hydronephrosis, and 7 mm nonobstructive stone in the left lo wer pole. There is a large left parapelvic cyst. Colonic diverticulosis. Mild ga llbladder wall calcification Review of Systems:Review of Systems Constitutional: Negative for diaphoresis, fever, malaise/fatigue and weight loss . Mild fatigue HENT: Negative for congestion. Eyes: Negative for blurred vision. Respiratory: Negative for cough, sputum production, shortness of breath and whee zing. Cardiovascular: Negative for chest pain, palpitations, orthopnea, claudication, leg swelling and PND. Gastrointestinal: Negative for abdominal pain, constipation, diarrhea, heartburn , nausea and vomiting. Genitourinary: Negative for dysuria, flank pain, frequency, hematuria and urgenc y. Musculoskeletal: Negative for back pain, falls, joint pain, myalgias and neck pa in. Neurological: Negative for dizziness, weakness and headaches. Psychiatric/Behavioral: Negative for depression. The patient is not nervous/anxi ous and does not have insomnia. Past Medical History: Past Medical History: Diagnosis Date Arthritis Asthma Gallstones Hernia High cholesterol HTN (hypertension) Irregular heart beat Kidney disease Kidney mass Transient ischemic attack UTI (urinary tract infection) Past Surgical History: Past Surgical History: Procedure Laterality Date HX CARDIAC CATHERIZATION 2011 HX HERNIA REPAIR 1988 HX HYSTERECTOMY 1994 HX KIDNEY SURGERY 2005 HX KNEE SURGERY Right 2003 HX TOTAL NEPHRECTOMY Right 10/05/2016 IVC thrombectomy and RPLND Social History: Social History Socioeconomic History Marital status: Spouse name: Not on file Number of children: Not on file Years of education: Not on file Highest education level: Not on file Occupational History Not on file Social Needs Financial resource strain: Not on file Food insecurity: Worry: Not on file Inability: Not on file Transportation needs: Medical: Not on file Non-medical: Not on file Tobacco Use Smoking status: Never Smoker Smokeless tobacco: Never Used Substance and Sexual Activity Alcohol use: No Drug use: Not on file Sexual activity: Not on file Lifestyle Physical activity: Days per week: Not on file Minutes per session: Not on file Stress: Not on file Relationships Social connections: Talks on phone: Not on file Gets together: Not on file Attends episcopalian service: Not on file Active member of club or organization: Not on file Attends meetings of clubs or organizations: Not on file Relationship status: Not on file Intimate partner violence: Fear of current or ex partner: Not on file Emotionally abused: Not on file Physically abused: Not on file Forced sexual activity: Not on file Other Topics Concerns: Not on file Social History Narrative Not on file Family History: Family History Problem Relation Name Age of Onset Cancer Mother ovarian Diabetes Father Heart Failure Father Other (pace maker [Other]) Father HIV/AIDS Brother Allergies: Allergies Allergen Reactions Codeine Nausea And Vomiting Hydrocodone-Acetaminophen Nausea And Vomiting Levofloxacin Other (See Comments) Bruising bruising Ursodiol Other (See Comments) bruising bruising Corticosteroids High blood pressure, elevated blood sugar Iodinated Diagnostic Agents Naproxen Vicodin [Hydrocodone-Acetaminophen] Nausea And Vomiting Medications: Current Outpatient Medications Medication Sig Dispense Refill albuterol (PROVENTIL) (2.5 mg/3 mL) 0.083% nebulizer solution Take 1 Ampule by nebulization four times daily. amitriptyline (ELAVIL) 25 MG tablet Take 25 mg by mouth nightly. Apixaban (ELIQUIS) 5 MG TABS Take 5 mg by mouth two times daily. 60 Tab 3 Aspirin (ASPIR-81 OR) Take by mouth. furosemide (LASIX) 20 MG tablet Take 20 mg by mouth daily. gabapentin (NEURONTIN) 300 MG capsule Take 300 mg by mouth 3 times daily. lisinopril (PRINIVIL, ZESTRIL) 5 MG tablet metoprolol (LOPRESSOR) 25 MG tablet Take 25 mg by mouth two times daily. metoprolol (LOPRESSOR) 50 MG tablet TK 1 T PO BID WF 1 nitrofurantoin (MACRODANTIN) 100 MG capsule Take 1 Cap by mouth nightly. 30 Cap 6 PROAIR HFA 108 (90 BASE) MCG/ACT inhaler simvastatin (ZOCOR) 40 MG tablet Take 40 mg by mouth every evening. tizanidine (ZANAFLEX) 2 MG tablet TK 1 T PO Q NIGHT PRN 1 TIZANIDINE HCL OR Take 2 mg by mouth daily. TRAMADOL HCL OR Take by mouth. tramadol-acetaminophen (ULTRACET) 37.5-325 MG per tablet No current facility-administered medications for this visit. Physical Exam: BP 141/70 (BP Location: left arm, Patient Position: Sitting, Cuff Size: regular) | Pulse 79 | Temp 95 F (35 C) (Oral) | Resp 18 | Ht 5' 6" (1.676 m) | Wt 274 lb (124.3 kg) | BMI 44.22 kg/m Body surface area is 2.41 meters squared. Wt Readings from Last 3 Encounters: 01/05/20 274 lb (124.3 kg) 10/09/19 268 lb (121.6 kg) 09/22/19 270 lb (122.5 kg) Physical Exam Vitals signs reviewed. Constitutional: General: She is not in acute distress. Appearance: She is well-developed. She is obese. She is not ill-appearing, to xic-appearing or diaphoretic. Comments: Ambulatory, presents with daughter HENT: Head: Normocephalic and atraumatic. Right Ear: External ear normal. Left Ear: External ear normal. Nose: Nose normal. No congestion. Mouth/Throat: Mouth: Mucous membranes are moist. Eyes: General: No scleral icterus. Right eye: No discharge. Left eye: No discharge. Conjunctiva/sclera: Conjunctivae normal. Pupils: Pupils are equal, round, and reactive to light. Neck: Musculoskeletal: Normal range of motion and neck supple. No muscular tenderne ss. Thyroid: No thyromegaly. Vascular: No JVD. Trachea: No tracheal deviation. Cardiovascular: Rate and Rhythm: Normal rate and regular rhythm. Heart sounds: Normal heart sounds. No murmur. Comments: Median sternotomy intact, with red scar Pulmonary: Effort: Pulmonary effort is normal. No respiratory distress. Breath sounds: Normal breath sounds. No stridor. No wheezing or rales. Chest: Chest wall: No tenderness. Abdominal: General: Bowel sounds are normal. There is no distension. Palpations: Abdomen is soft. There is no mass. Tenderness: There is no abdominal tenderness. There is no guarding or rebound . Hernia: No hernia is present. Comments: abd scars with some keloids Musculoskeletal: Normal range of motion. General: No swelling or tenderness. Right lower leg: Edema present. Left lower leg: Edema present. Lymphadenopathy: Cervical: No cervical adenopathy. Skin: General: Skin is warm and dry. Coloration: Skin is not jaundiced or pale. Findings: No bruising or erythema. Neurological: Mental Status: She is alert and oriented to person, place, and time. Psychiatric: Behavior: Behavior normal. Thought Content: Thought content normal. Judgment: Judgment normal. Labs: Lab Results Component Value Date WBC 9.5 01/05/2020 HGB 13.0 01/05/2020 HCT 40.7 01/05/2020 MCV 90.8 01/05/2020 PLT 121 (L) 01/05/2020 Lab Results Component Value Date CREATININE 0.95 01/05/2020 BUN 18 01/05/2020 NA 143 01/05/2020 K 4.5 01/05/2020 CL 101 01/05/2020 CO2 31 (H) 01/05/2020 Lab Results Component Value Date ALT 47 01/05/2020 AST 51 01/05/2020 ALKPHOS 99 01/05/2020 BILITOT 0.6 01/05/2020 Images: Reviewed Impression/ Assessment: Keyana Streeter is a 69 y.o. female with RCC, right kidney, s/p R nephrectomy 1 12/05/15, [id number], stage III, positive vein margin. Completed adjuvant sunitinib 02/2019 -h/o PE, completed eliquis course -h/o canal and foraminal stenosis at T and L spine levels -h/o schmorls node at T9 -h/o left parapelvic renal cyst vs extrarenal pelvis -growing kidney stone in left kidney -No recent fall since Oct 2019 -Loop recorder followed by cardiology A/P: 1. 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 Continue surveillance -RTC 3 mos and will check CT CAP for surveillance just prior to that appt 2. Falls -likely from deconditioning and generalized weakness -TSH slightly elevated, 4. Check FT4 next appt -B12 WNL -MRI brain negative -refer to home PT -No falls since Oct 2019 3. Kidney stone in remaining kidney. Growing. -refer to urology, will ask Dr Jean 4. H/o being on trimethoprim from outside urologist for UTI -will refill for now but will ask urology to see if they recommend to continue v s stop. May also be related to the kidney stone. RTC 3 months with labs and scan Discussed with ADALGISA Gill [facility] CUTTER documented in this encounter Plan of Treatment Care Team Description Date Type Specialty Doris Viveros MD [address] [facility] [address], [address] [place] [address] 04/05/2020 Office Visit Hematology and Oncology Order Schedule Name Type Priority Associated Diagnoses 1 Occurrences starting 01/05/2020 until 01/05/2021 CT CHEST ABDOMEN PELVIS W Imaging Routine Renal cell carcinoma, CONTRAST unspecified laterality (HCCode) Ordered: 01/05/2020 CBC W/AUTO DIFF WITH Lab STAT Renal cell carcinoma, PLATELETS unspecified laterality (HCCode) Ordered: 01/05/2020 COMPREHENSIVE METABOLIC Lab STAT Renal cell carcinoma, PANEL unspecified laterality (HCCode) Ordered: 01/05/2020 VITAMIN B12 Lab Routine Renal cell carcinoma, unspecified laterality (HCCode) Ordered: 01/05/2020 MAGNESIUM Lab STAT Renal cell carcinoma, unspecified laterality (HCCode) Order Schedule Name Type Priority Associated Diagnoses Ordered: 01/05/2020 AMB REF TO PT EXTERNAL Outpatient Routine Multiple falls Referral Health Maintenance Due Date Last Done Comments TETANUS SHOT (ADULT) 1965 BMI FOLLOW UP PLAN 1967 HEPATITIS C SCREENING 1967 FALL SCREEN 2014 OSTEOPOROSIS SCREENING 2014 PNEUMOVAX >=65 (PPSV23) 2014 PREVNAR >=65 (PCV13) 2014 MAMMOGRAM ANNUAL 01/13/2017 01/14/2016 COLON CANCER SCREENIN03/15/2017 03/15/2007 COLONOSCOPY MEDICARE AWV (Initial) 11/15/2018 FLU VACCINE > 6 MONTHS 06/15/2019 07/16/2016 documented as of this encounter Results Not on filedocumented in this encounter Visit Diagnoses Diagnosis Renal cell carcinoma, unspecified laterality (HCCode) - Primary Multiple falls Personal history of fall documented in this encounter Insurance Type Payer Benefit Subscriber ID Effective Phone Address Plan / Dates Group Medicare [employer] DUAL xxxxxxxxx 2019-P [address] [address] [place] [address] Medicaid MEDICAID [employer]IC xxxxxxxxx 2016- [address] - Present [id number] [place] [address] documented as of this encounter
--- OUTSIDE RECORDS SUMMARY | 2020-01-31 14:15 | XMS REPORT | Summary of Care ---
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 CT CHEST ABDOMEN PELVIS W CONTRAST * Radiology Services (Routine) Referred By Contact Referred To Contact Status Reason Specialty Diagnoses / Procedures Doris Viveros MD [address], [address] [place] [id number] [facility] [address] [facility] [address] [place] [address] Pending Radiology Diagnoses Multiple falls 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 MRI BRAIN W WO CONTRAST Reason for Visit * Reason Comments Follow Up 3 month follow up Encounter Details Care Team Description Date Type Department Doris Viveros MD [address], [address] [id number] Follow Up (3 month follow up) 06/20/2019 Office Visit [facility] Hematology and Oncology [address], [address] [address] Allergies Comments Active Allergy Reactions Severity [...] as of this encounter (statuses as of 06/21/2019) Medications End Date Status Medication Sig Dispensed Refills Start Date Active TIZANIDINE HCL Take 2 mg by 0 ORIndications: Hematuria, mouth daily. Kidney mass, Neoplasm of right kidney with thrombus of inferior vena cava Active gabapentin (NEURONTIN) Take 300 mg 0 300 MG by mouth 3 capsuleIndications: times daily. Hematuria, Kidney mass, Neoplasm of right kidney with thrombus of inferior vena cava Active TRAMADOL HCL Take by 0 ORIndications: Hematuria, mouth. Kidney mass, Neoplasm of right kidney with thrombus of inferior vena cava Active simvastatin (ZOCOR) 40 MG Take 40 mg by 0 tabletIndications: mouth every Hematuria, Kidney mass, evening. Neoplasm of right kidney with thrombus of inferior vena cava Active amitriptyline (ELAVIL) 25 Take 25 mg by 0 MG tabletIndications: mouth Hematuria, Kidney mass, nightly. Neoplasm of right kidney with thrombus of inferior vena cava Active Aspirin (ASPIR-81 Take by 0 OR)Indications: mouth. Hematuria, Kidney mass, Neoplasm of right kidney with thrombus of inferior vena cava Active albuterol (PROVENTIL) Take 1 Ampule 0 (2.5 mg/3 mL) 0.083% by nebulizer nebulization solutionIndications: four times Renal cell carcinoma, daily. unspecified laterality Active PROAIR HFA 108 (90 BASE) 0 MCG/ACT inhaler 7 Active lisinopril (PRINIVIL, 0 ZESTRIL) 5 MG tablet 7 Active tramadol-acetaminophen 0 (ULTRACET) 37.5-325 MG 7 per tablet Active furosemide (LASIX) 20 MG Take 20 mg by 0 tabletIndications: Renal mouth daily. cell carcinoma, unspecified laterality Active trimethoprim (TRIMPEX) Take 100 mg 0 100 MG tabletIndications: by mouth Renal cell carcinoma, daily. unspecified laterality Active metoprolol (LOPRESSOR) 25 Take 25 mg [...] 8 cell carcinoma, times daily. unspecified laterality Active nitrofurantoin Take 50 mg by 0 (MACRODANTIN) 50 MG mouth daily. capsule Active Sunitinib Malate (SUTENT) 25 mg po 2 28 Each 5 25 MG CAPSIndications: weeks on , 9 Renal cell carcinoma of Then stop for right kidney 1 week . Then restart afterwards for 2 weeks on 1 week off documented as of this encounter (statuses as of 06/21/2019) Active Problems Problem Noted Date Lower abdominal pain 07/05/2018 Urinary tract infection without hematuria 07/05/2018 Leg swelling 02/11/2018 Angina at rest 02/11/2018 Elevated TSH 06/08/2017 Morbid obesity due to excess calories 03/17/2017 Renal cell carcinoma 11/03/2016 Anemia 10/06/2016 Hemodynamic instability 10/06/2016 Renal cell carcinoma, right 10/06/2016 Asthma 10/05/2016 Atrophic kidney, acquired 10/05/2016 Chronic bronchitis 10/05/2016 History of frequent urinary tract infections 10/05/2016 TIA (transient ischemic attack) 10/05/2016 Morbid obesity with BMI of 40.0-44.9, adult 10/05/2016 Arthritis Hyperlipidemia 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 Gallstones Hypertension documented as of this encounter (statuses as of 06/21/2019) Immunizations Name Administration Dates Next Due Influenza [...] Signs Reading Time Taken Comments Vital Sign 120/71 06/20/2019 9:56 AM CDT Blood Pressure 65 06/20/2019 9:56 AM CDT Pulse 36.5 C (97.7 F) 06/20/2019 9:56 AM CDT Temperature 16 06/20/2019 9:56 AM CDT Respiratory Rate - - Oxygen Saturation - - Inhaled Oxygen Concentration 121.6 kg (268 lb) 06/20/2019 9:56 AM CDT Weight 170.2 cm (5' 7") 06/20/2019 9:56 AM CDT Height 41.97 06/20/2019 9:56 AM CDT Body Mass Index documented in this encounter Patient Instructions * Patient Instructions* Juliana Merrill CMA - 06/20/2019 10:00 AM CDT [facility] SECTION OF ONCOLOGY/HEMATOLOGY [phone] FAX [phone] Please note that all labs and or imaging results will be discussed at the next o ffice visit unless told otherwise. if a problem occurs after hours please contact our office and have physician air pollution compliance inspector paged [phone] Patient Instructions: (to be completed before next visit) Ct CAP w / contrast preclinic MRI brain outside Cbc, cmp, tsh, b12 help desk rep will schedule the patient 3 months follow up TELL US ABOUT YOUR EXPERIENCE You may receive an email or letter from [facility] via our partlam garcia, Bryant Huitron. This is a survey about your experience today. Your feedback is important to us so we can improve. If any question does not apply to your visit, please leave it blank. Our goal is to ensure you have an exceptional experience at [facility]. If for any reason you cannot rate your experience as very good, pl ease let a member of our staff know so we can make immediate improvements. Please don't hesitate to call if you have any questions or concerns before your appt. Thanks Juliana Merrill CMA II documented in this encounter Progress Notes * Doris Viveros MD - 06/20/2019 10:00 AM CDT Medical Oncology Clinic Note Referred By: Dr Danial Jean Cancer: kidney cancer s/p right nephrectomy 10/05/16 [id number] stage III Interim History 06/20/19: Presents to clinic having completed 1 year of adjuvant sunitinib Since last appt, has been in ER at [place]. On 03/24/19 she had a cold. Her daug hter was ill with similar symptoms as well. Treated with empiric antibiotics by PCP but did not improve and she went to a local ER and was hospitalized. Was see n by ID specialist but it was not clear what type of infection she had. Her anti biotics were switched and eventually her fevers subsided. Reports having high then low blood pressure and following up with her cardiologi st. An implanted heart monitor is planned soon. She has also been falling, has f andrew twice. Unclear why. Once was while she was trying to get to her recliner. Was not while she was sitting. No seizure like movement, no LOC. She is not carlie r why she fell. A second fall occurred while she was at home in the bathroom and the situational details are also not very clear. Mobility has decreased and she has trouble with walking long distances. In rollator today. Describes generaliz ed weakness. Also with intermittent, progressive imbalance of her lower extremit ies History of Present Illness: -pt with a [...] of the left kidney -07/29/16 ER at [place] bc of UTI and had a CT - [...] LE- no DVTs -09/01/16 MRI brain- no MANAGER FAMILY emboli or intracranial abnormalities -10/05/16- had right radical nephrectomy, RPLND, and IVC thrombectomy, complicat ed by finding of emboli to right atrium then main pulm artery, and had further m edian sternotomy, CPB, aortic and bicaval cannulation, main pulm artery and righ t branch pum artery arteriotomy with tumor embolectomy, [facility] ([facility]/ [facility]) Path- right kidney, LN- conventional clear cell [...] hypertension - 06/07/17 CT CAP w/o contrast: AMANDO - 10/28/17 CT chest w/o contrast: Peribronchial [...] renal stone - 06/22/18 CT A/P at [place]: SD per report since August last year. Will load to BC - 08/10/18 CT chest: NEMD - 09/02/18 MRI abdomen: No evidence of tumor recurrence in abdomen; T9 lesion - 09/30/18 MRI thoracic spine: T9 vertebral body lesion is favored to reflect re active changes along a superior endplate Schmorl's node. Metastatic lesion is a less likely consideration. 06/07/19 CT CAP w/ contrast: AMANDO. subcm left kidney stone. Suspected left extrare nal pelvis. Review of Systems:Review of Systems Constitutional: Positive for malaise/fatigue. Negative for diaphoresis, fever an d weight loss. Mild fatigue HENT: Negative for congestion. Eyes: Negative for blurred vision. Respiratory: Negative for cough, sputum production, shortness of breath and whee zing. Cardiovascular: Negative for chest pain, palpitations, orthopnea, claudication, leg swelling and PND. Gastrointestinal: Negative for abdominal pain, constipation, diarrhea, heartburn , nausea and vomiting. Genitourinary: Negative for dysuria, flank pain, frequency, hematuria and urgenc y. Musculoskeletal: Positive for back pain and falls. Negative for joint pain, myal gias and neck pain. Neurological: Negative for dizziness, weakness and headaches. [...] HX CARDIAC CATHERIZATION 2011 HX HERNIA REPAIR 1987 HX HYSTERECTOMY 1993 HX KIDNEY SURGERY 2004 HX KNEE SURGERY Right 2003 HX TOTAL [...] file Gets together: Not on file Attends restoration service: Not on file Active member of [...] T PO BID WF 1 nitrofurantoin (MACRODANTIN) 50 MG capsule Take 50 mg by mouth daily. PROAIR HFA 108 (90 BASE) MCG/ACT inhaler simvastatin (ZOCOR) 40 MG tablet Take 40 mg by mouth every evening. Sunitinib Malate (SUTENT) 25 MG CAPS 25 mg po 2 weeks on , Then stop for 1 week . Then restart afterwards for 2 weeks on 1 week off (Patient not taking: Re ported on 06/20/2019) 28 Each 5 tizanidine (ZANAFLEX) 2 MG tablet TK 1 T PO Q NIGHT PRN 1 TIZANIDINE HCL OR Take 2 mg by mouth daily. TRAMADOL HCL OR Take by mouth. tramadol-acetaminophen (ULTRACET) 37.5-325 MG per tablet trimethoprim (TRIMPEX) 100 MG tablet Take 100 mg by mouth daily. No current facility-administered medications for this visit. Physical Exam: BP 120/71 (BP Location: left arm, Patient Position: Sitting, Cuff Size: regular) | Pulse 65 | Temp 97.7 F (36.5 C) (Oral) | Resp 16 | Ht 5' 7" (1.702 m) | Wt 268 lb (121.6 kg) | BMI 41.97 kg/m Body surface area is 2.4 meters squared. Wt Readings from Last 3 Encounters: 06/20/19 268 lb (121.6 kg) 02/24/19 270 lb (122.5 kg) 01/13/19 266 lb (120.7 kg) Physical Exam Constitutional: She is oriented to person, place, and time. She appears well-dev eloped and well-nourished. No distress. Ambulatory, presents with daughter HENT: Head: Normocephalic and atraumatic. Right Ear: External ear normal. Left Ear: External ear normal. Nose: Nose normal. Mouth/Throat: Oropharynx is clear and moist. Eyes: Pupils are equal, round, and reactive to light. Conjunctivae and EOM are n ormal. Right eye exhibits no discharge. Left eye exhibits no discharge. No scler al icterus. Neck: Normal range of motion. Neck supple. No JVD present. No tracheal deviation present. No thyromegaly present. Cardiovascular: Normal rate, regular rhythm and normal heart sounds. No murmur heard. Median sternotomy intact, with red scar Pulmonary/Chest: Effort normal and breath sounds normal. No stridor. No respirat ory distress. She has no wheezes. She has no rales. She exhibits no tenderness. Abdominal: Soft. Bowel sounds are normal. She exhibits no distension and no mass . There is no tenderness. There is no rebound and no guarding. No hernia. abd scars with some keloids Musculoskeletal: Normal range of motion. She exhibits edema (BLE 1+). Lymphadenopathy: She has no cervical adenopathy. Neurological: She is alert and oriented to person, place, and time. Skin: Skin is warm and dry. She is not diaphoretic. No erythema. No pallor. Psychiatric: She has a normal mood and affect. Her behavior is normal. Judgment and thought content normal. Vitals reviewed. Labs: Lab Results Component Value Date WBC 7.3 06/20/2019 HGB 11.2 (L) 06/20/2019 HCT 34.1 06/20/2019 MCV 96.3 06/20/2019 PLT 121 (L) 06/20/2019 Lab Results Component Value Date CREATININE 1.10 06/20/2019 BUN 21 06/20/2019 NA 136 06/20/2019 K 4.2 06/20/2019 CL 99 (L) 06/20/2019 CO2 29 06/20/2019 Lab Results Component Value Date ALT 41 06/20/2019 AST 42 06/20/2019 ALKPHOS 89 06/20/2019 BILITOT 0.6 06/20/2019 Images: Reviewed Impression/ Assessment: Keyana Streeter is a 68 y.o. female with RCC, right kidney, s/p R nephrectomy 1 12/05/15, [id number], stage III, positive vein margin. Completed adjuvant sunitinib 02/2019 Today with recent falls of unknown reasons A/P: 1. 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 Continue surveillance -RTC 3 mos and will check CT CAP for surveillance just prior to that appt 2. Indeterminate vertebral lesion- MRI T spine shows likely Schmorl's node at T9 . Monitor 3. 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 left parapelvic cyst vs extra renal pelvis, benign appearing. Monitor 5. Past PE- continue eliquis for now, stopped 6. Falls x 2- unclear etiology. Not clearly mechanical in both cases. Also has d ebility of unclear reasons, worsened when off sunitinib. Will check MRI brain to evaluate for occult metastatic disease. -check TSH, B12 RTC 3 mos, with prior cbc, w diff, cmp, mg, B12, TSH, CT scan. MRI brain to be d one sooner, she will try to get done locally. Luz Maria Viveros MD [facility] [employer] Analyst[employer]ffic Incident Management Managergate manager Department of Internal Medicine Section of Hematology/Oncology [phone] office documented in this encounter Plan of Treatment Care Team Description Date Type Specialty Doris Viveros MD [address], [address] [place] [address] [phone] 09/22/2019 Office Visit Hematology and Oncology Order Schedule Name Type Priority Associated Diagnoses 1 Occurrences starting 06/20/2019 until 06/19/2020 MRI BRAIN W WO CONTRAST Imaging Routine Multiple falls 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 Expected: 09/20/2019, Expires: 06/20/2020 CT CHEST ABDOMEN PELVIS W Imaging Routine Tumor of right kidney CONTRAST with thrombus of IVC Ordered: 06/20/2019 CBC W/AUTO DIFF WITH Lab STAT Multiple falls PLATELETS 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 Ordered: 06/20/2019 COMPREHENSIVE METABOLIC Lab STAT Multiple falls PANEL 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 Ordered: 06/20/2019 TSH Lab STAT Multiple falls 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 Ordered: 06/20/2019 VITAMIN B12 Lab Routine Multiple falls 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 Health Maintenance Due Date Last Done Comments MEDICARE AWV 1949 TETANUS SHOT (ADULT) 1964 BMI FOLLOW UP PLAN 1967 HEPATITIS C SCREENING 1967 FALL SCREEN 2014 OSTEOPOROSIS SCREENING 2014 PNEUMOVAX >=65 (PPSV23) 2014 PREVNAR >=65 (PCV13) 2014 MAMMOGRAM ANNUAL 01/13/2017 01/14/2016 COLON CANCER SCREENIN03/15/2017 03/15/2007 COLONOSCOPY FLU VACCINE > 6 MONTHS 06/15/2019 07/16/2016 documented as of this encounter Results Not on filedocumented in this encounter Visit Diagnoses Diagnosis Multiple falls - Primary Personal history of fall 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
--- OUTSIDE RECORDS SUMMARY | 2020-01-31 14:15 | XMS REPORT ---
[facility] Address Unknown Phone Unavailable Care Team Providers Care Sexual Assault Nurse Name Role Phone LOR JACKSON CHADSATISH Unavailable Unavailable ALEXANDRE YOUNG Unavailable Unavailable Patrick DALTON Unavailable Unavailable Payers Payer Name Policy Type Policy Number Effective Date Expiration Date Problems This patient has no known problems. Allergies, Adverse Reactions, Alerts Allergy Name Allergy Type Status Severity Reaction(s) Onset Date Inactive Date Treating Clinician Comments hydrocodone bit DA Active U 2019-11-11 00:00:00 ursodiol DA Active U 2019-11-11 00:00:00 codeine DA Active U 2019-11-11 00:00:00 naproxen DA Active [place] 2019-11-11 00:00:00 sulfamethoxazole DA Active U 2019-11-11 00:00:00 trimethoprim DA Active U 2019-11-11 00:00:00 cyclobenzaprine DA Active U 2019-11-11 00:00:00 levofloxacin DA Active MO 2019-11-11 00:00:00 hydrocodone bit DA Active U 2019-05-06 00:00:00 ursodiol DA Active U 2019-05-06 00:00:00 codeine DA Active U 2019-05-06 00:00:00 naproxen DA Active [place] 2019-05-06 00:00:00 sulfamethoxazole DA Active U 2019-05-06 00:00:00 trimethoprim DA Active U 2019-05-06 00:00:00 cyclobenzaprine DA Active U 2019-05-06 00:00:00 levofloxacin DA Active MO 2019-05-06 00:00:00 hydrocodone bit DA Active U 2019-03-24 00:00:00 ursodiol DA Active U 2019-03-24 00:00:00 codeine DA Active U 2019-03-24 00:00:00 naproxen DA Active [place] 2019-03-24 00:00:00 sulfamethoxazole DA Active U 2019-03-24 00:00:00 trimethoprim DA Active U 2019-03-24 00:00:00 cyclobenzaprine DA Active U 2019-03-24 00:00:00 levofloxacin DA Active MO 2019-03-24 00:00:00 hydrocodone bit DA Active U 2019-01-22 00:00:00 iodine DA Active [place] 2019-01-22 00:00:00 ursodiol DA Active U 2019-01-22 00:00:00 codeine DA Active U 2019-01-22 00:00:00 naproxen DA Active [place] 2019-01-22 00:00:00 sulfamethoxazole DA Active U 2019-01-22 00:00:00 trimethoprim DA Active U 2019-01-22 00:00:00 cyclobenzaprine DA Active U 2019-01-22 00:00:00 levofloxacin DA Active MO 2019-01-22 00:00:00 hydrocodone bit DA Active U 2018-07-05 00:00:00 iodine DA Active [place] 2018-07-05 00:00:00 ursodiol DA Active U 2018-07-05 00:00:00 codeine DA Active U 2018-07-05 00:00:00 naproxen DA Active [place] 2018-07-05 00:00:00 sulfamethoxazole DA Active U 2018-07-05 00:00:00 trimethoprim DA Active U 2018-07-05 00:00:00 cyclobenzaprine DA Active U 2018-07-05 00:00:00 levofloxacin DA Active MO 2018-07-05 00:00:00 Medications This patient has no known medications. Results Test Description Test Time Test Comments Text Results Atomic Results Result Comments CT, CHEST, WITH IV CONTRAST 2019-12-26 13:40:[address] of the chest, abdomen and pelvis, with contrast Clinical History: c64.9 Technique: CT of the chest, abdomen and pelvis is performed with intravenous contrast administration. This exam was performed according to our departmental dose optimization program which includes automated exposure control, adjustment of the mA and/or kV according to patient's size and/or use of iterative reconstructive technique. Comparison Film: None Discussion: Visualized thyroid gland is unremarkable. No supraclavicular, axillary, mediastinal or hilar lymphadenopathy. Heart and pericardium are unremarkable. There is no mass or consolidation, no pleural effusion. Central airways are patent, no bronchiectasis, or bronchial wall thickening. No liver lesion is identified. There is calcification of the inferior wall of the gallbladder. No definite stone is seen. No ductal dilatation. Spleen, pancreas and left adrenal gland are unremarkable. Status post right nephrectomy, and adrenalectomy. No recurrent mass or abnormal fluid collection. There is persistent mild to moderate left hydronephrosis with transition at the UPJ. There is a stable 7 mm nonobstructive stone at the left lower pole. A large parapelvic cyst is again seen. No evidence of bowel obstruction, or abnormal bowel wall thickening. There is colonic diverticulosis, primarily involving the sigmoid colon, without evide nce of acute diverticulitis. Normal appendix. In the pelvis, air in the bladder is probably related to instrumentation. Uterus is absent. No adnexal mass. There is no adenopathy, or ascites. Osseous structures demonstrate moderate degenerative changes. Status post median sternotomy. No suspicious bony lesion is identified. Impression: Status post right nephrectomy and adrenalectomy. No mass or lymphadenopathy identified in the chest, abdomen or pelvis. Stable mild to moderate left hydronephrosis, and 7 mm nonobstructive stone in the left lower pole. There is a large left parapelvic cyst. Colonic diverticulosis. Air within the urinary bladder may be related to instrumentation, correlate clinically. Mild gallbladder wall calcification. Signed: Nash Sneed [facility] Verified Date/Time: 12/26/2019 13:40:46 Reading Location: [address] Consult Reading Room , ABDOMEN 2019-12-26 13:40:[address] of the chest, abdomen and pelvis, with contrast Clinical History: c64.9 Technique: CT of the chest, abdomen and pelvis is performed with intravenous contrast adm inistration. This exam was performed according to our departmental dose optimization program which includes automated exposure control, adjustment of the mA and/or kV according to patient's size and/or use of iterative reconstructive technique. Comparison Film: None Discussion: Visualized thyroid gland is unremarkable. No supraclavicular, axillary, mediastinal or hilar lymphadenopathy. Heart and pericardium are unremarkable. There is no mass or consolidation, no pleural effusion. Central airways are patent, no bronchiectasis, or bronchial wall thickening. No liver lesion is identified. There is calcification of the inferior wall of the gallbladder. No definite stone is seen. No ductal dilatation. Spleen, pancreas and left adrenal gland are unremarkable. Status post right nephrectomy, and adrenalectomy. No recurrent mass or abnormal fluid collection. There is persistent mild to moderate left hydronephrosis with transition at the UPJ. There is a stable 7 mm nonobstructive stone at the left lower pole. A large parapelvic cyst is again seen. No evidence of bowel obstruction, or abnormal bowel wall thickening. There is colonic diverticulosis, primarily involving the sigmoid colon, without evidence of acute diverticulitis. Normal appendix. In the pelvis, air in the bladder is probably related to instrumentation. Uterus is absent. No adnexal mass. There is no adenopathy, or ascites. Osseous structures demonstrate moderate degenerative changes. Status post median sternotomy. No suspicious bony lesion is identified. Impression: Status post right nephrectomy and adrenalectomy. No mass or lymphad enopathy identified in the chest, abdomen or pelvis. Stable mild to moderate left hydronephrosis, and 7 mm nonobstructive stone in the left lower pole. There is a large left parapelvic cyst. Colonic diverticulosis. Air within the urinary bladder may be related to instrumentation, correlate clinically. Mild gallbladder wall calcification. Signed: Nash Sneed MDReport Verified Date/Time: 12/26/2019 13:40:46 Reading Location: [facility] B1 C013X Ortho Consult Reading Room -CREATININE 2019-12-26 11:07:00 POC-CREATININE (TAWNYA) (test vwmv=0663) 0.9 mg/dL 0.6-1.3 TESTED AT [facility] [address] [facility] [address] POC-EGFR (TAWNYA) (test xjzj=6838) 62 mL/min/1.73M2 - CT ABD PELVIS [id number] 02:55:00 Name: QUENTIN BUENO [facility] : 1950 Age/S: 69 / F [address] Unit #: [id number] Loc: [place] [address] Phys: Tang Marquez MD Acct: [id number] Dis Date: Status: REG ER PHONE #: [phone] Exam Date: 11/11/2019220 FAX #: [phone] Reason: abdominal pain, LLQ EXAMS: CPT CODE: [id number] CT ABD PELVIS W/CONT [id number] EXAM: CT ABDOMEN AND PELVIS WITH IV CONTRAST DICTATION LOCATION: H48 HISTORY: Female, 69 years of age with abdominal pain, LLQ TECHNIQUE: Contrast: Nonionic IV contrast was given. No GI contrast was given. Portal venous phase: Abdomen and pelvis Delayed phase: Abdomen and pelvis Reconstructions: Coronal and sagittal One or more of the following dose reduction techniques were used: Automated exposure control; adjustment of the mA and/or kV according to the patient size; and/or use of iterative reconstruction technique. COMPARISON: Previous CT abdomen and pelvis with contrast 05/06/2019 FINDINGS: Statements: Exam quality is acceptable. Lower thorax: Unremarkable. Hepatobiliary: Liver is diffusely fatty infiltrated. No hepatic mass or enlargement. Small calcified stones seen in the dependent gallbladder matt men. No pericholecystic inflammation. No biliary dilation. P ancreas: Normal. Spleen: Normal. Adrenals: Left adr enal is normal. Right adrenal is not seen. Genitourinary: The rig ht kidney has been surgically removed. 6 cm parapelvic cyst in the lower l eft kidney again noted. A couple of nonobstructing stones measuring up to 0.7 cm diameter seen in the inferior left kidney. No acute hydronephrosis or perinephric stranding. Left ureter is normal. No ureteral stones. Small amount of air seen within the urinary bladder lumen, similar to prior alejandra dy. No bladder wall thickening, calculi, or diverticula. Uterus is not see n. Gastrointestinal: No bowel obstruction or perienteric inflamma tion. The appendix is normal. PAGE 1 Si gned Report (CONTINUED) Name: QUENTIN BUENO [facility] : 1950 Age/S: 69 / F [address] [facility] Unit #: [id number] Loc: [place] [address] Phys: Tang Marquez MD Acct: [id number] Dis Date: Status: REG ER PHONE #: [phone] Exam Date: 11/11/2019220 FAX #: [phone] Reason: abdominal pain, LLQ EXAMS: CPT CODE: [id number] CT ABD PELVIS W/CONT 96097 <Continued> Vascular: Atherosclerotic calcifications are seen within the aorta and branch vessels. No aneurysm or dissection. Lymphatics: No enlarged lymph nodes by CT size criteria. Bones/Soft Tissues: No acute osseous findings. Extensive degenerative change seen in the spine with multilevel spinal stenosis. No ventral hernias. Peritoneum/Other: No free intraperitoneal air. No free intraperitoneal fluid. IMPRESSION: 1. Nonobstructing stones and parapelvic cyst inferior left kidney. No acute obstructive uropathy. 2. Cholelithiasis. 3. Small amount of air within the urinary bladder lumen. Please correlate for recent bladder catheterization. 4. Fatty liver. 5. Normal appendix. 6. Above findings have not significantly changed since previous CT scan 05/06/2019. at 0255 Reported and signed by: Kirstin Morejon MD CC: Marium Mckenna MD; Tang Marquez MD Technologist:RT MACHELLE CTDI: DLP: Trnscb Date/Time: 11/11/2019 (025) [email or web address] Orig Print D/T: S: 11/11/2019 (0253) PAGE 2 Signed Report URINALYSIS [id number] 02:37:00* Test Item Value Reference Range Comments UA COLOR (test code=COLU) Light-Yellow YELLOW UA APPEARANCE (test code=APPU) CLEAR CLEAR UA GLUCOSE DIPSTICK (test code=DGLUU) NEGATIVE mg/dL NEGATIVE UA BILIRUBIN DIPSTICK (test code=BILU) NEGATIVE mg/dL NEGATIVE UA KETONE DIPSTICK (test code=KETU) NEGATIVE mg/dL NEGATIVE UA SPECIFIC GRAVITY (test code=SGU) 1.013 1.001-1.035 UA BLOOD DIPSTICK (test code=CHELY) 0.03 mg/dL (Trace) mg/dL NEGATIVE UA PH DIPSTICK (test code=FABI) 6.0 5.0-8.0 UA PROTEIN DIPSTICK (test code=PROU) NEGATIVE mg/dL NEGATIVE UA UROBILINIOGEN DIPSTICK (test code=URO) Normal mg/dL NEGATIVE UA NITRITE DIPSTICK (test code=FARIHA) NEGATIVE NEGATIVE UA LEUKOCYTE ESTERASE W REFLEX (test code=LEUUR) NEGATIVE Erika/uL NEGATIVE UA WBC (test code=WBCU) 0-5 per HPF 0-5 UA RBC (test code=RBCU) 0-2 #/HPF 0-5 UA EPITHELIAL CELLS (test code=EPIU) None seen per HPF FEW UA BACTERIA (test code=BACU) NONE SEEN #/HPF NONE Urine Source? Clean CatchURINALYSIS [id number] 02:36:00* Test Item Value Reference Range Comments UA COLOR (test code=COLU) Light-Yellow YELLOW UA APPEARANCE (test code=APPU) CLEAR CLEAR UA GLUCOSE DIPSTICK (test code=DGLUU) NEGATIVE mg/dL NEGATIVE UA BILIRUBIN DIPSTICK (test code=BILU) NEGATIVE mg/dL NEGATIVE UA KETONE DIPSTICK (test code=KETU) NEGATIVE mg/dL NEGATIVE UA SPECIFIC GRAVITY (test code=SGU) 1.013 1.001-1.035 UA BLOOD DIPSTICK (test code=CHELY) 0.03 mg/dL (Trace) mg/dL NEGATIVE UA PH DIPSTICK (test code=FABI) 6.0 5.0-8.0 UA PROTEIN DIPSTICK (test code=PROU) NEGATIVE mg/dL NEGATIVE UA UROBILINIOGEN DIPSTICK (test code=URO) Normal mg/dL NEGATIVE UA NITRITE DIPSTICK (test code=FARIHA) NEGATIVE NEGATIVE UA LEUKOCYTE ESTERASE W REFLEX (test code=LEUUR) NEGATIVE Erika/uL NEGATIVE UA WBC (test code=WBCU) per HPF 0-5 UA RBC (test code=RBCU) per HPF 0-5 UA EPITHELIAL CELLS (test code=EPIU) per HPF Few UA BACTERIA (test code=BACU) per HPF NONE Urine Source? Clean CatchBASIC METABOLIC [id number] 02:07:00* Test Item Value Reference Range Comments SODIUM (test code=NA) 139 mmol/L 136-145 POTASSIUM (test code=K) 4.2 mmol/L 3.5-5.1 CHLORIDE (test code=CL) 104.0 mmol/L 98-107 CARBON DIOXIDE (test code=CO2) 26.0 mmol/L 21-32 ANION GAP (test code=GAP) 13.2 10-20 GLUCOSE (test code=GLU) 170 mg/dL 74-106 BLOOD UREA NITROGEN (test code=BUN) 15 mg/dL 7-18 GLOMERULAR FILTRATION RATE (test code=GFR) 49 mL/min >=60 Estimated GFR by using Modified MDRD formula.Chronic kidney disease is defined as either kidney damageor GFR <60 mL/min/1.73 m2 for >3 months. CREATININE (test code=CREAT) 1.10 mg/dL 0.55-1.02 Note change in reference range due to change in reagent. BUN/CREATININE RATIO (test code=BUN/CREA) 13.6 10-20 CALCIUM (test code=CA) 8.6 mg/dL 8.5-10.1 HEPATIC FUNCTION [id number] 02:07:00* Test Item Value Reference Range Comments TOTAL PROTEIN (test code=PROT) 7.6 gram/dL 6.4-8.2 ALBUMIN (test code=ALB) 3.1 g/dL 3.4-5.0 GLOBULIN (test code=GLOB) 4.5 gram/dL 2.7-4.2 ALBUMIN/GLOBULIN RATIO (test code=A/G) 0.7 0.75-1.50 BILIRUBIN TOTAL (test code=BILT) 0.30 mg/dL 0.0-1.0 BILIRUBIN DIRECT (test code=BILD) 0.11 mg/dL 0.0-0.20 SGOT/AST (test code=AST) 36 IUnit/L 15-37 SGPT/ALT (test code=ALT) 39 IUnit/L 12-78 ALKALINE PHOSPHATASE TOTAL (test code=ALKP) 107 IUnit/L 45-117 Note change in reference range due to change in reagent. [id number] 02:07:00* Test Item Value Reference Range Comments LIPASE (test code=LIP) 109 U/L 73.0-393.0 BASIC METABOLIC [id number] 02:01:00* Test Item Value Reference Range Comments SODIUM (test code=NA) 139 mmol/L 136-145 POTASSIUM (test code=K) 4.2 mmol/L 3.5-5.1 CHLORIDE (test code=CL) 104.0 mmol/L 98-107 CARBON DIOXIDE (test code=CO2) mmol/L 21-32 ANION GAP (test code=GAP) 10-20 GLUCOSE (test code=GLU) mg/dL 74-106 BLOOD UREA NITROGEN (test code=BUN) mg/dL 7-18 GLOMERULAR FILTRATION RATE (test code=GFR) mL/min >=60 CREATININE (test code=CREAT) mg/dL 0.55-1.02 BUN/CREATININE RATIO (test code=BUN/CREA) 10-20 CALCIUM (test code=CA) mg/dL 8.5-10.1 HEPATIC FUNCTION [id number] 02:01:00* Test Item Value Reference Range Comments TOTAL PROTEIN (test code=PROT) gram/dL 6.4-8.2 ALBUMIN (test code=ALB) g/dL 3.4-5.0 GLOBULIN (test code=GLOB) gram/dL 2.7-4.2 ALBUMIN/GLOBULIN RATIO (test code=A/G) 0.75-1.50 BILIRUBIN TOTAL (test code=BILT) mg/dL 0.0-1.0 BILIRUBIN DIRECT (test code=BILD) mg/dL 0.0-0.20 SGOT/AST (test code=AST) IUnit/L 15-37 SGPT/ALT (test code=ALT) IUnit/L 12-78 ALKALINE PHOSPHATASE TOTAL (test code=ALKP) IUnit/L 45-117 [id number] 02:01:00* Test Item Value Reference Range Comments LIPASE (test code=LIP) U/L 73.0-393.0 PROTHROMBIN [id number] 02:00:00* Test Item Value Reference Range Comments PROTHROMBIN TIME PATIENT (test code=PTP) 18.3 seconds 9.0-14.0 INTERNATIONAL NORMAL RATIO (test code=INR) 1.6 0.8-1.2 The therapeutic range for oral anticoagulant therapy formost indications is an international normalized ratio (INR)of between 2.0 and 3.0. The recommended therapeutic INRrange for various clinical situations is listed below: Clinical Situation INR range Pulmonary e mbolism treatment (2.0-3.0)Venous thrombosis treatmentVenous thrombosis prophylaxis (high risk surgery)Prevention of systemic embolism from: Acute myocardial infarction Valvular heart disease Atrial fibrillation Mechanical prosthetic heart valves (2.5-3.5) IS PATIENT ON ANTICOAGULANTS? NTHROMBOPLASTIN TIME [id number] 02:00:00* Test Item Value Reference Range Comments THROMBOPLASTIN TIME PARTIAL (test code=PTT) 39.6 seconds 25.0-36.5 IS PATIENT ON ANTICOAGULANTS? NCBC W/O [id number] 01:47:00* Test Item Value Reference Range Comments WHITE BLOOD CELL (test code=WBC) 7.8 K/mm3 4.5-12.5 RED BLOOD CELL (test code=RBC) 4.01 mill/mm3 3.7-5.2 HEMOGLOBIN (test code=HGB) 11.8 gram/dL 11.5-15.5 HEMATOCRIT (test code=HCT) 35.2 % 36.0-46.0 MEAN CELL VOLUME (test code=MCV) 87.8 fL 80-98 MEAN CELL HGB (test code=MCH) 29.4 picogram 27.0-33.0 MEAN CELL HGB CONCETRATION (test code=MCHC) 33.5 gram/dL 33.0-36.0 RED CELL DISTRIBUTION WIDTH (test code=RDW) 14.1 % 11.6-16.2 PLATELET COUNT (test code=PLT) 110 K/mm3 150-450 MEAN PLATELET VOLUME (test code=MPV) 11.8 fL 6.7-11.0 CT, [id number] 16:28:00FINAL REPORT CT scan of the abdomen and pelvis. Clinical History: N20.0 N28.1 Comparison Study: CT scan dated June 07, 2019 TECHNIQUE: Contiguous helical slices were acquired through the abdomen and pelvis both pre- and post administration of intravenous contrast. This exam was performed according to our department dose optimization program which includes automated exposure control, adjustment of the mA and/or kV according to the patient's size and/or use of iterative reconstruction technique. FINDINGS: The lung bases are clear. The liver is unremarkable. The portal vein is patent measuring 1.1 cm. The gallbladder and biliary tree are unremarkable. The spleen, pancreas and left adrenal gland are within normal limits. The right kidney has been resected with no residual soft tissue identified. The right adrenal gland is not seen and possibly resected The left kidney demonstrates a 5.8 x 3.6 cm parapelvic renal cyst which is stable in size and appearance as compared to previous. Also noted within the lower pole of the left kidney is a 7 mm nonocclusive calculus, similar to previous. No new calculi are seen. No occlusive calculus is identified. Mild to moderate hydronephrosis is seen, most pronounced in the upper pole with a transition at the ureteropelvic junction. There are no dilated loops of bowel seen suggest obstr uction. Diverticulosis is seen without evidence of diverticulitis. A normal appe ndix is seen. Gas is seen within the bladder. This could be an echogenic in natu re. If there has not been recent bladder consolidation, a cystitis or fistula ca nnot be excluded. Bilateral fat-containing inguinal hernias are noted. The aorta is normal in caliber. No suspicious adenopathy is seen. Mild atherosclerosis is identified. Bone windows demonstrate poststernotomy changes and degenerative c hanges. IMPRESSION:1. 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 Stable left parapelvic renal cyst with mild to moderate left-sided hydronephro sis and a transition at the ureteropelvic junction, likely related to UPJ obstru ction.3. Diverticulosis.4. Gas within the bladder. Clinical correlation is recom mended. Signed: Joe Garzaeport Verified Date/Time: 10/27/2019 16:28:0 7 Reading Location: [facility] Diagnostic Imaging Reading Room - [place] [id number] [id number] ectronically signed by: JOE GARZA M.D. 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 Prior surgery. Chest pain. Hypertension. History of blood clots. Pelvic surgery. Prior pulmonary embolus COMPARISON: October 09, 2016TECHNIQUE: Chest, abdomen and pelvis were scanned utilizing a multidetector helical scanner from the lung apex to the pubic symphysis after administration of IV contrast. Coronal and sagittal reformations were obtained. Routine protocol was performed. Scan was performed when during portal venous phase. IV CONTRAST: 150 mL of Isovue-370 ORAL CONTRAST: Water COMPLICATIONS: None RADIATION DOSE: Total DLP: 1445 mGy*cm Estimated effective dose: (DLP x 0.015 x size factor) mSv CTDIvol has been reviewed. It is below the limits set by the Radiation Protocol Committee (RPC). Dose reduction techniques used: Automated exposure control, adjustment of the mAs and/or kVp according to patient size, standardized low-dose protocol, and/or iterative reconstruction technique. FINDINGS: LINES and TUBES: Sternal wires. LUNGS AND AIRWAYS: Minimal scarring/atelectasis in the lung bases. Airways are normal. PLEURA: The pleural spaces are clear. HEART AND MEDIASTINUM: The thyroid gland is normal. No mediastinal, hilar or axillary lymphadenopathy. The heart is normal in size. There is no pericardial effusion. HEPATOBILIARY: No focal hepatic lesions. No biliary ductal dilation. GALLBLADDER: No radio- opaque stones or sludge. No wall thickening. SPLEEN: No splenomegaly. PA NCREAS: No focal masses or ductal dilatation. ADRENALS: No adrenal nodules KIDNEYS/URETERS: Prior right nephrectomy with associated postsurgical change. No residual or recurrent mass is seen in the region. 0.5 cm nonobstructing inferior left renal stone. Suspected left extrarenal pelvis. The left kidney is otherwise unremarkable. No hydronephrosis. GI TRACT: No abnormal distention, wall thickening, or evidence of bowel obstruction. Scattered diverticulosis wi thout evidence of diverticulitis. Appendix is normal. PELVIC ORGANS/BLADDER: Sm all amount of air within the lumen of the urinary bladder of unknown clinical si gnificance. LYMPH NODES: No lymphadenopathy. VESSELS: Scattered vascular calcif ication. PERITONEUM / RETROPERITONEUM: No free air or fluid. BONES: Scattered de generative change. SOFT TISSUES: Unremarkable. IMPRESSION: Prior rig ht nephrectomy with associated postsurgical change. No residual or recurrent mas s is seen in the region. 0.5 cm nonobstructing inferior left renal stone. Suspe cted left extrarenal pelvis. The left kidney is otherwise unremarkable. Small am ount of air within the lumen of the urinary bladder of unknown clinical signific ance. 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 Prior surgery. Chest pain. Hypertension. History of blood clots. Pelvic surgery. Prior pulmonary embolus COMPARISON: October 09, 2016TECHNIQUE: Chest, abdomen and pelvis were scanned utilizing a multidetector helical scanner from the lung apex to the pubic symphysis after administration of IV contrast. Coronal and sagittal reformations were obtained. Routine protocol was performed. Scan was performed when during portal venous phase. IV CONTRAST: 150 mL of Isovue-370 ORAL CONTRAST: Water COMPLICATIONS: None RADIATION DOSE: Total DLP: 1445 mGy*cm Estimated effective dose: (DLP x 0.015 x size factor) mSv CTDIvol has been reviewed. It is below the limits set by the Radiation Protocol Committee (RPC). Dose reduction techniques used: Automated exposure control, adjustment of the mAs and/or kVp according to patient size, standardized low-dose protocol, and/or iterative reconstruction technique. FINDINGS: LINES and TUBES: Sternal wires. LUNGS AND AIRWAYS: Minimal scarring/atelectasis in the lung bases. Airways are normal. PLEURA: The pleural spaces are clear. HEART AND MEDIASTINUM: The thyroid gland is normal. No mediastinal, hilar or axillary lymphadenopathy. The heart is normal in size. There is no pericardial effusion. HEPATOBILIARY: No focal hepatic lesions. No biliary ductal dilation. GALLBLADDER: No radio-opaque stones or sludge. No wall thickening. SPLEEN: No splenomegaly. PANCREAS: No focal masses or ductal dilatation. ADRENALS: No adrenal nodules KIDNEYS/URETERS: Prior right nephrectomy with associated postsurgical change. No residual or recurrent mass is seen in the region. 0.5 cm nonobstructing inferior left renal stone. Suspected left extrarenal pelvis. The left kidney is otherwise unremarkable. No hydronephrosis. GI TRACT: No abnormal distention, wall thickening, or evidence of bowel obstruction. Scattered diverticulosis without evidence of diverticulitis. Appendix is normal. PELVIC ORGANS/BLADDER: Small amount of air within the lumen of the urinary bladder of unknown clinical significance. LYMPH NODES: No lymphadenopathy. VESSELS: Scattered vascular calcification. PERITONEUM / RETROPERITONEUM: No free air or fluid. BONES: Scattered degenerative change. SOFT TISSUES: Unremarkable. IMPRESSION: Prior right nephrectomy with associated postsurgical change. No residual or recurrent mass is seen in the region. 0.5 cm nonobstructing inferior left renal stone. Suspected left extrarenal pelvis. The left kidney is otherwise unremarkable. Small amount of air within the lumen of the urinary bladder of unknown clinical significance. Signed: Leighann Rivas MDReport Verified Date/Time: 06/07/2019 11:14:26 Reading Location: [facility] Reading Room [address] [place] [address] -[id number] 08:48:00* Test Item Value Reference Range Comments POC-CREATININE (TAWNYA) (test hono=5111) 1.1 mg/dL 0.6-1.3 TESTED AT [facility] [address] [facility] [address] POC-EGFR (TAWNYA) (test xily=9924) 49 mL/min/1.73M2 - CT ABD PELVIS [id number] 20:16:00 Name: QUENTIN BUENO [facility] : 1950 Age/S: 68 / F [address] [facility] Unit #: [id number] Loc: [place] [address] Phys: Jono Hutchinson MD Acct: [id number] Dis Date: Status: REG ER PHONE #: [phone] Exam Date: 05/06/20192005 FAX #: [phone] Reason: back pain, abd pain EXAMS: CPT CODE: [id number] CT ABD PELVIS W/CONT [id number] REASON FOR EXAM: back pain, abd pain EXAM ORDER DATE: 05/06/2019 7:28 PM Ordering M.DRicki: Jono Hutchinson MD PROCEDURE: - CT ABD PELVIS W/CONT COMPARISON: FINDINGS: CT images of the abdomen and pelvis were obtained with IV and without oral contrast at 5mm. Dose modulation, iterative reconstruction, and/or weight based adjustment of the MA/KV was utilized to reduce the radiation dose to as low as reasonably achievable. Intravenous contrast: 100cc of Omnipaque 370. The liver, spleen, pancreas are grossly within normal limits. Small radiopaque stones in the gallbladder The patient is status post right nephrectomy. 6 cm left parapelvic renal cyst The urinary bladder is unremarkable. The colon, small bowel, and stomach are within normal limits without evidence of obstruction. The appendix is unremarkable. No evidence of free air or free fluid. The patient is status post hysterectomy IMPRESSION: 1. 0.7 cm nonobstructing stone in the inferior pole the left kidney. 6 cm left parapelvic renal cyst. 2. Status post right nephrectomy without evidence of postop fluid collection or abscess. 3. Cholelithiasis E lectronically Signed by Jocelyne Vieira on 05/06/2019 at 2016 Reported and signed by: Lionel Vieira M.D. PAGE 1 S igned Report (CONTINUED) Name: QUENTIN BUENO [facility] : 1950 Age/S: 68 / F [address] [facility] Unit #: [id number] Loc: Eliseo [place]ong [address] Phys: Jono Hutchinson MD Acct: [id number] Dis Date: Status: REG ER PHONE #: [phone] Exam Date: 05/06/20192005 FAX #: [phone] Reason: back pain, abd pain EXAMS: CPT CODE: [id number] CT ABD PELVIS W/CONT [id number] <Continued> CC: Jono Hutchinson MD; Marium Mckenna MD Technologist:Tari Boss RT(R)(CT) CTDI: DLP: Trnscb Date/Time: 05/06/2019 (2015) Wesley Orig Print D/T: S: 05/06/2019 (2019) PAGE 2 Signed Report URINALYSIS [id number] 18:38:00* Test Item Value Reference Range Comments UA COLOR (test code=COLU) Light-Yellow YELLOW UA APPEARANCE (test code=APPU) CLEAR CLEAR UA GLUCOSE DIPSTICK (test code=DGLUU) NEGATIVE mg/dL NEGATIVE UA BILIRUBIN DIPSTICK (test code=BILU) NEGATIVE mg/dL NEGATIVE UA KETONE DIPSTICK (test code=KETU) NEGATIVE mg/dL NEGATIVE UA SPECIFIC GRAVITY (test code=SGU) 1.017 1.001-1.035 UA BLOOD DIPSTICK (test code=CHELY) Negative mg/dL NEGATIVE UA PH DIPSTICK (test code=FABI) 5.5 5.0-8.0 UA PROTEIN DIPSTICK (test code=PROU) NEGATIVE mg/dL NEGATIVE UA UROBILINIOGEN DIPSTICK (test code=URO) Normal mg/dL NEGATIVE UA NITRITE DIPSTICK (test code=FARIHA) NEGATIVE NEGATIVE UA LEUKOCYTE ESTERASE W REFLEX (test code=LEUUR) NEGATIVE Erika/uL NEGATIVE UA WBC (test code=WBCU) 0-5 per HPF 0-5 UA RBC (test code=RBCU) 0-3 #/HPF 0-5 UA EPITHELIAL CELLS (test code=EPIU) FEW per HPF FEW UA BACTERIA (test code=BACU) NONE SEEN #/HPF NONE UA MUCUS (test code=MUCU) FEW #/LPF FEW Urine Source? Clean CatchBASIC METABOLIC [id number] 18:36:00* Test Item Value Reference Range Comments SODIUM (test code=NA) 140 mmol/L 136-145 POTASSIUM (test code=K) 4.0 mmol/L 3.5-5.1 CHLORIDE (test code=CL) 107.0 mmol/L 98-107 CARBON DIOXIDE (test code=CO2) 26.0 mmol/L 21-32 ANION GAP (test code=GAP) 11.0 10-20 GLUCOSE (test code=GLU) 83 mg/dL 74-106 BLOOD UREA NITROGEN (test code=BUN) 18 mg/dL 7-18 GLOMERULAR FILTRATION RATE (test code=GFR) 55 mL/min >=60 Estimated GFR by using Modified MDRD formula.Chronic kidney disease is defined as either kidney damageor GFR <60 mL/min/1.73 m2 for >3 months. CREATININE (test code=CREAT) 1.00 mg/dL 0.55-1.02 Note change in reference range due to change in reagent. BUN/CREATININE RATIO (test code=BUN/CREA) 18.0 10-20 CALCIUM (test code=CA) 9.5 mg/dL 8.5-10.1 HEPATIC FUNCTION [id number] 18:36:00* Test Item Value Reference Range Comments TOTAL PROTEIN (test code=PROT) 8.2 gram/dL 6.4-8.2 ALBUMIN (test code=ALB) 3.4 g/dL 3.4-5.0 GLOBULIN (test code=GLOB) 4.8 gram/dL 2.7-4.2 ALBUMIN/GLOBULIN RATIO (test code=A/G) 0.7 0.75-1.50 BILIRUBIN TOTAL (test code=BILT) 0.30 mg/dL 0.0-1.0 BILIRUBIN DIRECT (test code=BILD) 0.11 mg/dL 0.0-0.20 SGOT/AST (test code=AST) 30 IUnit/L 15-37 SGPT/ALT (test code=ALT) 34 IUnit/L 12-78 ALKALINE PHOSPHATASE TOTAL (test code=ALKP) 85 IUnit/L 45-117 Note change in reference range due to change in reagent. [id number] 18:36:00* Test Item Value Reference Range Comments LIPASE (test code=LIP) 213 U/L 73.0-393.0 [id number] 18:36:00* Test Item Value Reference Range Comments TROPONIN-I (test code=TROPI) <0.015 ng/mL 0-0.045 BASIC METABOLIC [id number] 18:25:00* Test Item Value Reference Range Comments SODIUM (test code=NA) 140 mmol/L 136-145 POTASSIUM (test code=K) 4.0 mmol/L 3.5-5.1 CHLORIDE (test code=CL) 107.0 mmol/L 98-107 CARBON DIOXIDE (test code=CO2) mmol/L 21-32 ANION GAP (test code=GAP) 10-20 GLUCOSE (test code=GLU) mg/dL 74-106 BLOOD UREA NITROGEN (test code=BUN) mg/dL 7-18 GLOMERULAR FILTRATION RATE (test code=GFR) mL/min >=60 CREATININE (test code=CREAT) mg/dL 0.55-1.02 BUN/CREATININE RATIO (test code=BUN/CREA) 10-20 CALCIUM (test code=CA) mg/dL 8.5-10.1 HEPATIC FUNCTION [id number] 18:25:00* Test Item Value Reference Range Comments TOTAL PROTEIN (test code=PROT) gram/dL 6.4-8.2 ALBUMIN (test code=ALB) g/dL 3.4-5.0 GLOBULIN (test code=GLOB) gram/dL 2.7-4.2 ALBUMIN/GLOBULIN RATIO (test code=A/G) 0.75-1.50 BILIRUBIN TOTAL (test code=BILT) mg/dL 0.0-1.0 BILIRUBIN DIRECT (test code=BILD) mg/dL 0.0-0.20 SGOT/AST (test code=AST) IUnit/L 15-37 SGPT/ALT (test code=ALT) IUnit/L 12-78 ALKALINE PHOSPHATASE TOTAL (test code=ALKP) IUnit/L 45-117 [id number] 18:25:00* Test Item Value Reference Range Comments LIPASE (test code=LIP) U/L 73.0-393.0 [id number] 18:25:00* Test Item Value Reference Range Comments TROPONIN-I (test code=TROPI) ng/mL 0-0.045 CBC W/O [id number] 18:20:00* Test Item Value Reference Range Comments WHITE BLOOD CELL (test code=WBC) 9.2 K/mm3 4.5-12.5 RED BLOOD CELL (test code=RBC) 3.70 mill/mm3 3.7-5.2 HEMOGLOBIN (test code=HGB) 12.0 gram/dL 11.5-15.5 HEMATOCRIT (test code=HCT) 37.0 % 36.0-46.0 MEAN CELL VOLUME (test code=MCV) 100.0 fL 80-98 MEAN CELL HGB (test code=MCH) 32.4 picogram 27.0-33.0 MEAN CELL HGB CONCETRATION (test code=MCHC) 32.4 gram/dL 33.0-36.0 RED CELL DISTRIBUTION WIDTH (test code=RDW) 12.3 % 11.6-16.2 PLATELET COUNT (test code=PLT) 153 K/mm3 150-450 MEAN PLATELET VOLUME (test code=MPV) 11.4 fL 6.7-11.0 CBC W/O [id number] 18:15:00* Test Item Value Reference Range Comments WHITE BLOOD CELL (test code=WBC) K/mm3 4.5-12.5 RED BLOOD CELL (test code=RBC) mill/mm3 3.7-5.2 HEMOGLOBIN (test code=HGB) 12.0 gram/dL 11.5-15.5 HEMATOCRIT (test code=HCT) 37.0 % 36.0-46.0 MEAN CELL VOLUME (test code=MCV) fL 80-98 MEAN CELL HGB (test code=MCH) picogram 27.0-33.0 MEAN CELL HGB CONCETRATION (test code=MCHC) gram/dL 33.0-36.0 RED CELL DISTRIBUTION WIDTH (test code=RDW) % 11.6-16.2 PLATELET COUNT (test code=PLT) K/mm3 150-450 MEAN PLATELET VOLUME (test code=MPV) fL 6.7-11.0 VITAMIN [id number] 08:17:00* Test Item Value Reference Range Comments VITAMIN B12 (test code=VITB12) 300 pg/mL 193-986 FOLIC [id number] 08:17:00* Test Item Value Reference Range Comments FOLIC ACID (test code=FOL) 14.2 ng/mL 3.10-17.50 BASIC METABOLIC [id number] 07:50:00* Test Item Value Reference Range Comments SODIUM (test code=NA) 141 mmol/L 136-145 RESULT VERIFIED BY REPEAT ANALYSIS POTASSIUM (test code=K) 4.0 mmol/L 3.5-5.1 CHLORIDE (test code=CL) 109.0 mmol/L 98-107 CARBON DIOXIDE (test code=CO2) 27.0 mmol/L 21-32 ANION GAP (test code=GAP) 9.0 10-20 GLUCOSE (test code=GLU) 123 mg/dL 74-106 BLOOD UREA NITROGEN (test code=BUN) 9 mg/dL 7-18 GLOMERULAR FILTRATION RATE (test code=GFR) > 60 mL/min >=60 Estimated GFR by using Modified MDRD formula.Chronic kidney disease is defined as either kidney damageor GFR <60 mL/min/1.73 m2 for >3 months. CREATININE (test code=CREAT) 0.80 mg/dL 0.55-1.02 Note change in reference range due to change in reagent. BUN/CREATININE RATIO (test code=BUN/CREA) 11.3 10-20 CALCIUM (test code=CA) 8.6 mg/dL 8.5-10.1 CBC W/AUTO [id number] 07:08:00* Test Item Value Reference Range Comments WHITE BLOOD CELL (test code=WBC) 6.4 K/mm3 4.5-12.5 RED BLOOD CELL (test code=RBC) 3.15 mill/mm3 3.7-5.2 HEMOGLOBIN (test code=HGB) 10.8 gram/dL 11.5-15.5 HEMATOCRIT (test code=HCT) 33.4 % 36.0-46.0 MEAN CELL VOLUME (test code=MCV) 106.0 fL 80-98 MEAN CELL HGB (test code=MCH) 34.3 picogram 27.0-33.0 MEAN CELL HGB CONCETRATION (test code=MCHC) 32.3 gram/dL 33.0-36.0 RED CELL DISTRIBUTION WIDTH (test code=RDW) 14.0 % 11.6-16.2 RED CELL DISTRIBUTION WIDTH SD (test code=RDW-SD) 54.6 fL 37.0-51.0 PLATELET COUNT (test code=PLT) 107 K/mm3 150-450 MEAN PLATELET VOLUME (test code=MPV) 10.3 fL 6.7-11.0 NEUTROPHIL % (test code=NT%) 53.3 % 39.0-69.0 IMMATURE GRANULOCYTE % (test code=IG%) 0.6 % 0.0-5.0 LYMPHOCYTE % (test code=LY%) 37.5 % 25.0-55.0 MONOCYTE % (test code=MO%) 6.4 % 0.0-10.0 EOSINOPHIL % (test code=EO%) 1.9 % 0.0-5.0 BASOPHIL % (test code=BA%) 0.3 % 0.0-1.0 NUCLEATED RBC % (test code=NRBC%) 0.0 % 0-0 NEUTROPHIL # (test code=NT#) 3.39 K/mm3 1.8-7.7 IMMATURE GRANULOCYTE # (test code=IG#) 0.04 x10 3/uL 0-0.03 LYMPHOCYTE # (test code=LY#) 2.39 K/mm3 1.0-5.0 MONOCYTE # (test code=MO#) 0.41 K/mm3 0-0.8 EOSINOPHIL # (test code=EO#) 0.12 K/mm3 0.0-0.5 BASOPHIL # (test code=BA#) 0.02 K/mm3 0.0-0.2 NUCLEATED RBC # (test code=NRBC#) 0.00 K/mm3 0.0-0.1 MANUAL DIFF REQUIRED (test code=MDIFF) NO LACTIC [id number] 14:37:00* Test Item Value Reference Range Comments LACTIC ACID (test code=LACT) 1.1 mmol/L 0.4-1.9 URINALYSIS [id number] 13:59:00* Test Item Value Reference Range Comments UA COLOR (test code=COLU) Light-Yellow YELLOW UA APPEARANCE (test code=APPU) CLEAR CLEAR UA GLUCOSE DIPSTICK (test code=DGLUU) NEGATIVE mg/dL NEGATIVE UA BILIRUBIN DIPSTICK (test code=BILU) NEGATIVE mg/dL NEGATIVE UA KETONE DIPSTICK (test code=KETU) NEGATIVE mg/dL NEGATIVE UA SPECIFIC GRAVITY (test code=SGU) 1.013 1.001-1.035 UA BLOOD DIPSTICK (test code=CHELY) Negative mg/dL NEGATIVE UA PH DIPSTICK (test code=FABI) 7.0 5.0-8.0 UA PROTEIN DIPSTICK (test code=PROU) NEGATIVE mg/dL NEGATIVE UA UROBILINIOGEN DIPSTICK (test code=URO) 3.0 (1+) mg/dL NEGATIVE UA NITRITE DIPSTICK (test code=FARIHA) NEGATIVE NEGATIVE UA LEUKOCYTE ESTERASE W REFLEX (test code=LEUUR) NEGATIVE Erika/uL NEGATIVE UA WBC (test code=WBCU) per HPF 0-5 UA RBC (test code=RBCU) per HPF 0-5 UA EPITHELIAL CELLS (test code=EPIU) per HPF Few UA BACTERIA (test code=BACU) per HPF NONE Urine Source? Clean CatchURINALYSIS [id number] 13:59:00* Test Item Value Reference Range Comments UA COLOR (test code=COLU) Light-Yellow YELLOW UA APPEARANCE (test code=APPU) CLEAR CLEAR UA GLUCOSE DIPSTICK (test code=DGLUU) NEGATIVE mg/dL NEGATIVE UA BILIRUBIN DIPSTICK (test code=BILU) NEGATIVE mg/dL NEGATIVE UA KETONE DIPSTICK (test code=KETU) NEGATIVE mg/dL NEGATIVE UA SPECIFIC GRAVITY (test code=SGU) 1.013 1.001-1.035 UA BLOOD DIPSTICK (test code=CHELY) Negative mg/dL NEGATIVE UA PH DIPSTICK (test code=FABI) 7.0 5.0-8.0 UA PROTEIN DIPSTICK (test code=PROU) NEGATIVE mg/dL NEGATIVE UA UROBILINIOGEN DIPSTICK (test code=URO) 3.0 (1+) mg/dL NEGATIVE UA NITRITE DIPSTICK (test code=FARIHA) NEGATIVE NEGATIVE UA LEUKOCYTE ESTERASE W REFLEX (test code=LEUUR) NEGATIVE Erika/uL NEGATIVE UA WBC (test code=WBCU) 0-5 per HPF 0-5 UA RBC (test code=RBCU) 0-2 #/HPF 0-5 UA EPITHELIAL CELLS (test code=EPIU) FEW per HPF FEW UA BACTERIA (test code=BACU) FEW #/HPF NONE Urine Source? Clean CatchCBC W/MANUAL [id number] 13:22:00* Test Item Value Reference Range Comments WHITE BLOOD CELL (test code=WBC) 6.2 K/mm3 4.5-12.5 RED BLOOD CELL (test code=RBC) 3.26 mill/mm3 3.7-5.2 HEMOGLOBIN (test code=HGB) 11.2 gram/dL 11.5-15.5 HEMATOCRIT (test code=HCT) 34.5 % 36.0-46.0 MEAN CELL VOLUME (test code=MCV) 105.8 fL 80-98 MEAN CELL HGB (test code=MCH) 34.4 picogram 27.0-33.0 MEAN CELL HGB CONCETRATION (test code=MCHC) 32.5 gram/dL 33.0-36.0 RED CELL DISTRIBUTION WIDTH (test code=RDW) 14.2 % 11.6-16.2 RED CELL DISTRIBUTION WIDTH SD (test code=RDW-SD) 56.3 fL 37.0-51.0 PLATELET COUNT (test code=PLT) 114 K/mm3 150-450 MEAN PLATELET VOLUME (test code=MPV) 10.7 fL 6.7-11.0 IMMATURE GRANULOCYTE % (test code=IG%) 0.5 % 0.0-5.0 NUCLEATED RBC % (test code=NRBC%) 0.0 % 0-0 NEUTROPHIL # (test code=NT#) 3.97 K/mm3 1.8-7.7 IMMATURE GRANULOCYTE # (test code=IG#) 0.03 x10 3/uL 0-0.03 LYMPHOCYTE # (test code=LY#) 1.77 K/mm3 1.0-5.0 MONOCYTE # (test code=MO#) 0.36 K/mm3 0-0.8 EOSINOPHIL # (test code=EO#) 0.05 K/mm3 0.0-0.5 BASOPHIL # (test code=BA#) 0.01 K/mm3 0.0-0.2 NUCLEATED RBC # (test code=NRBC#) 0.00 K/mm3 0.0-0.1 MANUAL DIFF REQUIRED (test code=MDIFF) YES STAIN ACCEPTABILITY (test code=STN ACCEPTABLE) STAIN ACCEPTABLE TOTAL CELLS COUNTED (test code=TCC) 115 #CELLS SEGMENTED NEUTROPHILS (test code=SEG) 67.0 % 39-69 BAND NEUTROPHIL (test code=BAND) 3.5 % 0-10 LYMPHOCYTE (test code=LYMPH) 24.3 % 25-55 REACTIVE LYMPH (test code=RELYMPH) 0 % MONOCYTE (test code=MON) 4.3 % 0-10 EOSINOPHIL (test code=EOS) 0.9 % 0.0-5.0 BASOPHIL (test code=BASO) 0 % 0-1.0 METAMYELOCYTE (test code=META) 0 % 0-0 MYELOCYTE (test code=MYELO) 0 % 0.0-0.0 PROMYELOCYTE (test code=PROM) 0 % 0-0 MORPHOLOGY COMMENT (test code=MOC) NORMAL PLATELET ESTIMATE (test code=PLTEST) DECREASED PLATELET MORPHOLOGY (test code=PLTMORPH) SIZE VARIABLE IMMATURE FORMS (test code=IMMAT) 0 % 0-0 PROCALCITONIN (PCT)2019-03-24 12:33:00* Test Item Value Reference Range Comments PROCALCITONIN (PCT) (test code=PROCAL) 0.05 ng/ml Concentration Interpretation (ng/mL) <0.51 Sepsis is not likely. Local bacterial infection is possible. (LOW RISK for progression to Sepsis) 0.51 - 2.00 Sepsis is possible, but other conditions are known to elevate PCT as well. (MODERATE RISK for progression to Sepsis) > 2.00 Sepsis is likely, unless other causes are known. (HIGH RISK for progression to Severe Sepsis or Septic Shock) 10.00 High likelihood of Severe Sepsis or Septic or higher Shock. *Increased PCT levels may not always be related to systemic bacterial infection.*Low PCT levels do not automatically exclude the presence of bacterial infection.*All results should be interpreted taking into account the patients history. CBC W/MANUAL [id number] 12:25:00* Test Item Value Reference Range Comments WHITE BLOOD CELL (test code=WBC) 6.2 K/mm3 4.5-12.5 RED BLOOD CELL (test code=RBC) 3.26 mill/mm3 3.7-5.2 HEMOGLOBIN (test code=HGB) 11.2 gram/dL 11.5-15.5 HEMATOCRIT (test code=HCT) 34.5 % 36.0-46.0 MEAN CELL VOLUME (test code=MCV) 105.8 fL 80-98 MEAN CELL HGB (test code=MCH) 34.4 picogram 27.0-33.0 MEAN CELL HGB CONCETRATION (test code=MCHC) 32.5 gram/dL 33.0-36.0 RED CELL DISTRIBUTION WIDTH (test code=RDW) 14.2 % 11.6-16.2 RED CELL DISTRIBUTION WIDTH SD (test code=RDW-SD) 56.3 fL 37.0-51.0 PLATELET COUNT (test code=PLT) 114 K/mm3 150-450 MEAN PLATELET VOLUME (test code=MPV) 10.7 fL 6.7-11.0 IMMATURE GRANULOCYTE % (test code=IG%) 0.5 % 0.0-5.0 NUCLEATED RBC % (test code=NRBC%) 0.0 % 0-0 NEUTROPHIL # (test code=NT#) 3.97 K/mm3 1.8-7.7 IMMATURE GRANULOCYTE # (test code=IG#) 0.03 x10 3/uL 0-0.03 LYMPHOCYTE # (test code=LY#) 1.77 K/mm3 1.0-5.0 MONOCYTE # (test code=MO#) 0.36 K/mm3 0-0.8 EOSINOPHIL # (test code=EO#) 0.05 K/mm3 0.0-0.5 BASOPHIL # (test code=BA#) 0.01 K/mm3 0.0-0.2 NUCLEATED RBC # (test code=NRBC#) 0.00 K/mm3 0.0-0.1 MANUAL DIFF REQUIRED (test code=MDIFF) YES STAIN ACCEPTABILITY (test code=STN ACCEPTABLE) TOTAL CELLS COUNTED (test code=TCC) #CELLS SEGMENTED NEUTROPHILS (test code=SEG) % 39-69 LYMPHOCYTE (test code=LYMPH) % 25-55 MONOCYTE (test code=MON) % 0-10 EOSINOPHIL (test code=EOS) % 0.0-5.0 CABOT RINGS (test code=CAB) MORPHOLOGY COMMENT (test code=MOC) PLATELET ESTIMATE (test code=PLTEST) PLATELET MORPHOLOGY (test code=PLTMORPH) CBC W/MANUAL [id number] 12:25:00* Test Item Value Reference Range Comments WHITE BLOOD CELL (test code=WBC) 6.2 K/mm3 4.5-12.5 RED BLOOD CELL (test code=RBC) 3.26 mill/mm3 3.7-5.2 HEMOGLOBIN (test code=HGB) 11.2 gram/dL 11.5-15.5 HEMATOCRIT (test code=HCT) 34.5 % 36.0-46.0 MEAN CELL VOLUME (test code=MCV) 105.8 fL 80-98 MEAN CELL HGB (test code=MCH) 34.4 picogram 27.0-33.0 MEAN CELL HGB CONCETRATION (test code=MCHC) 32.5 gram/dL 33.0-36.0 RED CELL DISTRIBUTION WIDTH (test code=RDW) 14.2 % 11.6-16.2 RED CELL DISTRIBUTION WIDTH SD (test code=RDW-SD) 56.3 fL 37.0-51.0 PLATELET COUNT (test code=PLT) 114 K/mm3 150-450 MEAN PLATELET VOLUME (test code=MPV) 10.7 fL 6.7-11.0 IMMATURE GRANULOCYTE % (test code=IG%) 0.5 % 0.0-5.0 NUCLEATED RBC % (test code=NRBC%) 0.0 % 0-0 NEUTROPHIL # (test code=NT#) 3.97 K/mm3 1.8-7.7 IMMATURE GRANULOCYTE # (test code=IG#) 0.03 x10 3/uL 0-0.03 LYMPHOCYTE # (test code=LY#) 1.77 K/mm3 1.0-5.0 MONOCYTE # (test code=MO#) 0.36 K/mm3 0-0.8 EOSINOPHIL # (test code=EO#) 0.05 K/mm3 0.0-0.5 BASOPHIL # (test code=BA#) 0.01 K/mm3 0.0-0.2 NUCLEATED RBC # (test code=NRBC#) 0.00 K/mm3 0.0-0.1 MANUAL DIFF REQUIRED (test code=MDIFF) YES STAIN ACCEPTABILITY (test code=STN ACCEPTABLE) TOTAL CELLS COUNTED (test code=TCC) #CELLS SEGMENTED NEUTROPHILS (test code=SEG) % 39-69 LYMPHOCYTE (test code=LYMPH) % 25-55 MONOCYTE (test code=MON) % 0-10 EOSINOPHIL (test code=EOS) % 0.0-5.0 CABOT RINGS (test code=CAB) MORPHOLOGY COMMENT (test code=MOC) PLATELET ESTIMATE (test code=PLTEST) PLATELET MORPHOLOGY (test code=PLTMORPH) CBC W/MANUAL [id number] 12:25:00* Test Item Value Reference Range Comments WHITE BLOOD CELL (test code=WBC) 6.2 K/mm3 4.5-12.5 RED BLOOD CELL (test code=RBC) 3.26 mill/mm3 3.7-5.2 HEMOGLOBIN (test code=HGB) 11.2 gram/dL 11.5-15.5 HEMATOCRIT (test code=HCT) 34.5 % 36.0-46.0 MEAN CELL VOLUME (test code=MCV) 105.8 fL 80-98 MEAN CELL HGB (test code=MCH) 34.4 picogram 27.0-33.0 MEAN CELL HGB CONCETRATION (test code=MCHC) 32.5 gram/dL 33.0-36.0 RED CELL DISTRIBUTION WIDTH (test code=RDW) 14.2 % 11.6-16.2 RED CELL DISTRIBUTION WIDTH SD (test code=RDW-SD) 56.3 fL 37.0-51.0 PLATELET COUNT (test code=PLT) 114 K/mm3 150-450 MEAN PLATELET VOLUME (test code=MPV) 10.7 fL 6.7-11.0 IMMATURE GRANULOCYTE % (test code=IG%) 0.5 % 0.0-5.0 NUCLEATED RBC % (test code=NRBC%) 0.0 % 0-0 NEUTROPHIL # (test code=NT#) 3.97 K/mm3 1.8-7.7 IMMATURE GRANULOCYTE # (test code=IG#) 0.03 x10 3/uL 0-0.03 LYMPHOCYTE # (test code=LY#) 1.77 K/mm3 1.0-5.0 MONOCYTE # (test code=MO#) 0.36 K/mm3 0-0.8 EOSINOPHIL # (test code=EO#) 0.05 K/mm3 0.0-0.5 BASOPHIL # (test code=BA#) 0.01 K/mm3 0.0-0.2 NUCLEATED RBC # (test code=NRBC#) 0.00 K/mm3 0.0-0.1 MANUAL DIFF REQUIRED (test code=MDIFF) YES STAIN ACCEPTABILITY (test code=STN ACCEPTABLE) TOTAL CELLS COUNTED (test code=TCC) #CELLS SEGMENTED NEUTROPHILS (test code=SEG) % 39-69 LYMPHOCYTE (test code=LYMPH) % 25-55 MONOCYTE (test code=MON) % 0-10 EOSINOPHIL (test code=EOS) % 0.0-5.0 MORPHOLOGY COMMENT (test code=MOC) PLATELET ESTIMATE (test code=PLTEST) PLATELET MORPHOLOGY (test code=PLTMORPH) CBC W/MANUAL [id number] 12:25:00* Test Item Value Reference Range Comments WHITE BLOOD CELL (test code=WBC) 6.2 K/mm3 4.5-12.5 RED BLOOD CELL (test code=RBC) 3.26 mill/mm3 3.7-5.2 HEMOGLOBIN (test code=HGB) 11.2 gram/dL 11.5-15.5 HEMATOCRIT (test code=HCT) 34.5 % 36.0-46.0 MEAN CELL VOLUME (test code=MCV) 105.8 fL 80-98 MEAN CELL HGB (test code=MCH) 34.4 picogram 27.0-33.0 MEAN CELL HGB CONCETRATION (test code=MCHC) 32.5 gram/dL 33.0-36.0 RED CELL DISTRIBUTION WIDTH (test code=RDW) 14.2 % 11.6-16.2 RED CELL DISTRIBUTION WIDTH SD (test code=RDW-SD) 56.3 fL 37.0-51.0 PLATELET COUNT (test code=PLT) 114 K/mm3 150-450 MEAN PLATELET VOLUME (test code=MPV) 10.7 fL 6.7-11.0 IMMATURE GRANULOCYTE % (test code=IG%) 0.5 % 0.0-5.0 NUCLEATED RBC % (test code=NRBC%) 0.0 % 0-0 NEUTROPHIL # (test code=NT#) 3.97 K/mm3 1.8-7.7 IMMATURE GRANULOCYTE # (test code=IG#) 0.03 x10 3/uL 0-0.03 LYMPHOCYTE # (test code=LY#) 1.77 K/mm3 1.0-5.0 MONOCYTE # (test code=MO#) 0.36 K/mm3 0-0.8 EOSINOPHIL # (test code=EO#) 0.05 K/mm3 0.0-0.5 BASOPHIL # (test code=BA#) 0.01 K/mm3 0.0-0.2 NUCLEATED RBC # (test code=NRBC#) 0.00 K/mm3 0.0-0.1 MANUAL DIFF REQUIRED (test code=MDIFF) YES STAIN ACCEPTABILITY (test code=STN ACCEPTABLE) TOTAL CELLS COUNTED (test code=TCC) #CELLS SEGMENTED NEUTROPHILS (test code=SEG) % 39-69 LYMPHOCYTE (test code=LYMPH) % 25-55 MONOCYTE (test code=MON) % 0-10 MORPHOLOGY COMMENT (test code=MOC) PLATELET ESTIMATE (test code=PLTEST) PLATELET MORPHOLOGY (test code=PLTMORPH) CBC W/MANUAL [id number] 12:25:00* Test Item Value Reference Range Comments WHITE BLOOD CELL (test code=WBC) 6.2 K/mm3 4.5-12.5 RED BLOOD CELL (test code=RBC) 3.26 mill/mm3 3.7-5.2 HEMOGLOBIN (test code=HGB) 11.2 gram/dL 11.5-15.5 HEMATOCRIT (test code=HCT) 34.5 % 36.0-46.0 MEAN CELL VOLUME (test code=MCV) 105.8 fL 80-98 MEAN CELL HGB (test code=MCH) 34.4 picogram 27.0-33.0 MEAN CELL HGB CONCETRATION (test code=MCHC) 32.5 gram/dL 33.0-36.0 RED CELL DISTRIBUTION WIDTH (test code=RDW) 14.2 % 11.6-16.2 RED CELL DISTRIBUTION WIDTH SD (test code=RDW-SD) 56.3 fL 37.0-51.0 PLATELET COUNT (test code=PLT) 114 K/mm3 150-450 MEAN PLATELET VOLUME (test code=MPV) 10.7 fL 6.7-11.0 IMMATURE GRANULOCYTE % (test code=IG%) 0.5 % 0.0-5.0 NUCLEATED RBC % (test code=NRBC%) 0.0 % 0-0 NEUTROPHIL # (test code=NT#) 3.97 K/mm3 1.8-7.7 IMMATURE GRANULOCYTE # (test code=IG#) 0.03 x10 3/uL 0-0.03 LYMPHOCYTE # (test code=LY#) 1.77 K/mm3 1.0-5.0 MONOCYTE # (test code=MO#) 0.36 K/mm3 0-0.8 EOSINOPHIL # (test code=EO#) 0.05 K/mm3 0.0-0.5 BASOPHIL # (test code=BA#) 0.01 K/mm3 0.0-0.2 NUCLEATED RBC # (test code=NRBC#) 0.00 K/mm3 0.0-0.1 MANUAL DIFF REQUIRED (test code=MDIFF) YES STAIN ACCEPTABILITY (test code=STN ACCEPTABLE) TOTAL CELLS COUNTED (test code=TCC) #CELLS SEGMENTED NEUTROPHILS (test code=SEG) % 39-69 LYMPHOCYTE (test code=LYMPH) % 25-55 MONOCYTE (test code=MON) % 0-10 EOSINOPHIL (test code=EOS) % 0.0-5.0 CABOT RINGS (test code=CAB) MORPHOLOGY COMMENT (test code=MOC) PLATELET ESTIMATE (test code=PLTEST) PLATELET MORPHOLOGY (test code=PLTMORPH) LACTIC [id number] 12:11:00* Test Item Value Reference Range Comments LACTIC ACID (test code=LACT) 2.2 mmol/L 0.4-1.9 Results called to [id number] by V.[email or web address] 03/24/19 1211Critical results verified and read back by Nurse? Y BASIC METABOLIC [id number] 12:08:00* Test Item Value Reference Range Comments SODIUM (test code=NA) 135 mmol/L 136-145 POTASSIUM (test code=K) 4.1 mmol/L 3.5-5.1 CHLORIDE (test code=CL) 103.0 mmol/L 98-107 CARBON DIOXIDE (test code=CO2) 26.0 mmol/L 21-32 ANION GAP (test code=GAP) 10.1 10-20 GLUCOSE (test code=GLU) 198 mg/dL 74-106 BLOOD UREA NITROGEN (test code=BUN) 12 mg/dL 7-18 GLOMERULAR FILTRATION RATE (test code=GFR) 55 mL/min >=60 Estimated GFR by using Modified MDRD formula.Chronic kidney disease is defined as either kidney damageor GFR <60 mL/min/1.73 m2 for >3 months. CREATININE (test code=CREAT) 1.00 mg/dL 0.55-1.02 Note change in reference range due to change in reagent. BUN/CREATININE RATIO (test code=BUN/CREA) 12.0 10-20 CALCIUM (test code=CA) 8.5 mg/dL 8.5-10.1 HEPATIC FUNCTION [id number] 12:08:00* Test Item Value Reference Range Comments TOTAL PROTEIN (test code=PROT) 7.9 gram/dL 6.4-8.2 ALBUMIN (test code=ALB) 3.4 g/dL 3.4-5.0 GLOBULIN (test code=GLOB) 4.5 gram/dL 2.7-4.2 ALBUMIN/GLOBULIN RATIO (test code=A/G) 0.8 0.75-1.50 BILIRUBIN TOTAL (test code=BILT) 0.70 mg/dL 0.0-1.0 BILIRUBIN DIRECT (test code=BILD) 0.25 mg/dL 0.0-0.20 SGOT/AST (test code=AST) 22 IUnit/L 15-37 SGPT/ALT (test code=ALT) 35 IUnit/L 12-78 ALKALINE PHOSPHATASE TOTAL (test code=ALKP) 63 IUnit/L 45-117 Note change in reference range due to change in reagent. [id number] 12:08:00* Test Item Value Reference Range Comments TROPONIN-I (test code=TROPI) <0.015 ng/mL 0-0.045 BASIC METABOLIC [id number] 12:06:00* Test Item Value Reference Range Comments SODIUM (test code=NA) 135 mmol/L 136-145 POTASSIUM (test code=K) 4.1 mmol/L 3.5-5.1 CHLORIDE (test code=CL) 103.0 mmol/L 98-107 CARBON DIOXIDE (test code=CO2) mmol/L 21-32 ANION GAP (test code=GAP) 10-20 GLUCOSE (test code=GLU) mg/dL 74-106 BLOOD UREA NITROGEN (test code=BUN) mg/dL 7-18 GLOMERULAR FILTRATION RATE (test code=GFR) mL/min >=60 CREATININE (test code=CREAT) mg/dL 0.55-1.02 BUN/CREATININE RATIO (test code=BUN/CREA) 10-20 CALCIUM (test code=CA) mg/dL 8.5-10.1 HEPATIC FUNCTION [id number] 12:06:00* Test Item Value Reference Range Comments TOTAL PROTEIN (test code=PROT) gram/dL 6.4-8.2 ALBUMIN (test code=ALB) g/dL 3.4-5.0 GLOBULIN (test code=GLOB) gram/dL 2.7-4.2 ALBUMIN/GLOBULIN RATIO (test code=A/G) 0.75-1.50 BILIRUBIN TOTAL (test code=BILT) mg/dL 0.0-1.0 BILIRUBIN DIRECT (test code=BILD) mg/dL 0.0-0.20 SGOT/AST (test code=AST) IUnit/L 15-37 SGPT/ALT (test code=ALT) IUnit/L 12-78 ALKALINE PHOSPHATASE TOTAL (test code=ALKP) IUnit/L 45-117 [id number] 12:06:00* Test Item Value Reference Range Comments TROPONIN-I (test code=TROPI) ng/mL 0-0.045 - XR CHEST 1 [id number] 11:41:00 FAX: Marium Mckenna MD [phone] [place]: St: REG FAX: Navya Valdez [employer]ITY SCREENER Name: QUENTIN BUENO [facility] : 1950 Age/S: 68/F [address] [facility] Unit #: [id number] Loc: [place] [address] Phys: Navya Valdez NP Acct: [id number] Dis Date: Status: REG ER PHONE #: [phone] Exam Date: 03/24/2019 1147 FAX #: [phone] Reason: CODE SEPSIS EXAMS: CPT CODE: [id number] XR CHEST 1 V 80946 HISTORY: Fever, cough, chills, CODE SEPSIS TECHNIQUE: AP chest x-ray COMPARISON: 12/02/18 FINDINGS: No airspace consolidation or pleural effusion. Borderline heart size. Mediastinal silhouette is unremarkable. Sternotomy wires. Thoracic spondylosis. IMPRESSION: No radiographic evidence of acute cardiopulmonary process. at 1141 Reported and signed by: Ruby Benson D.O. CC: Marium Mckenna MD; Navya Valdez NP Technologist: RT JB(Emma) Trnscrd Date/Time/By: 03/24/2019 (2351) : By: [email or web address] Orig Print D/T: S: 03/24/2019 (0687) PAGE 1 Signed Report POC LACTIC [id number] 11:40:00* Test Item Value Reference Range Comments POC LACTIC ACID (test code=POCLAC) 1.89 MMOL/L 0.4-2.2 - CT ABD PELVIS [id number] 07:37:00 Name: QUENTIN BUENO [facility] : 1950 Age/S: 68 / F [address] [facility] #: [id number] Loc: [place] [address] Phys: Raúl Nieto MD Acct: [id number] Dis Date: Status: REG ER PHONE #: [phone] Exam Date: 01/22/2019716 FAX #: [phone] Reason: R sided abd pain EXAMS: CPT CODE: [id number] CT ABD PELVIS W/CONT 37076 HISTORY: Right sided abdominal pain TECHNIQUE: Immediate and delayed [address] images were obtained through the abdomen and pelvis after IV administration of 100 mL of Isovue-370 contrast. Sagittal and coronal reformatted images were generated. Automated exposure control for dose reduction. COMPARISON: 06/22/18 FINDINGS: Mild dependent subsegmental atelectasis. Cardiomegaly. Sternotomy wires. Liver, gallbladder, pancreas, spleen, and left adrenal gland are unremarkable. Right nephrectomy. Left renal parenchyma is unremarkable. 5.2 cm left parapelvic cyst. 5 mm left inferior pole calyceal calculus. No ureteral calculus or hydronephrosis. Limited evaluation the GI tract wi thout oral contrast. Stomach, small bowel, appendix are unremarkable. Mode rate sigmoid diverticulosis. No free air or free fluid. No lymphad enopathy. Abdominal aorta is normal in caliber. Urinary blad anthony is unremarkable. Hysterectomy. Ovaries are unremarkable. No pelvic miriam e fluid. Fat-containing inguinal hernias. Degenerative changes of the spine, sacroiliac joints, and hips. IMPRESSION: No acute intra-abdominal process. No significant interval change. at 0737 Reported and signed by: Ruby Benson D.O. PAGE 1 Signed Report (CONTINUED) Name: QUENTIN BUENO [facility] : 1950 Age/S: 68 / F [address] Unit #: [id number] Loc: [place] [address] Phys: Raúl Nieto MD Acct: [id number] Dis Date: Status: REG ER PHONE #: [phone] Exam Date: 01/22/2019716 FAX #: [phone] Reason: R sided abd pain EXAMS: CPT CODE: [id number] ABD PELVIS W/CONT 25761 <Continued> CC: Raúl Nieto MD; Marium Mckenna MD Technologist:Kayli Tidwell RT(R),CT CTDI: DLP: Trnscb Date/Time: 01/22/2019 (0737) [email or web address] Orig Print D/T: S: 01/22/2019 (0740) CTDI: DLP: PAGE 2 Signed Report BASIC METABOLIC [id number] 05:19:00* Test Item Value Reference Range Comments SODIUM (test code=NA) 138 mmol/L 136-145 POTASSIUM (test code=K) 3.7 mmol/L 3.5-5.1 CHLORIDE (test code=CL) 102.0 mmol/L 98-107 CARBON DIOXIDE (test code=CO2) 29.0 mmol/L 21-32 ANION GAP (test code=GAP) 10.7 10-20 GLUCOSE (test code=GLU) 120 mg/dL 74-106 BLOOD UREA NITROGEN (test code=BUN) 18 mg/dL 7-18 GLOMERULAR FILTRATION RATE (test code=GFR) 49 mL/min >=60 Estimated GFR by using Modified MDRD formula.Chronic kidney disease is defined as either kidney damageor GFR <60 mL/min/1.73 m2 for >3 months. CREATININE (test code=CREAT) 1.10 mg/dL 0.55-1.02 Note change in reference range due to change in reagent. BUN/CREATININE RATIO (test code=BUN/CREA) 16.4 10-20 CALCIUM (test code=CA) 8.7 mg/dL 8.5-10.1 HEPATIC FUNCTION [id number] 05:19:00* Test Item Value Reference Range Comments TOTAL PROTEIN (test code=PROT) 7.6 gram/dL 6.4-8.2 ALBUMIN (test code=ALB) 3.2 g/dL 3.4-5.0 GLOBULIN (test code=GLOB) 4.4 gram/dL 2.7-4.2 ALBUMIN/GLOBULIN RATIO (test code=A/G) 0.7 0.75-1.50 BILIRUBIN TOTAL (test code=BILT) 0.50 mg/dL 0.0-1.0 BILIRUBIN DIRECT (test code=BILD) 0.15 mg/dL 0.0-0.20 SGOT/AST (test code=AST) 63 IUnit/L 15-37 SGPT/ALT (test code=ALT) 63 IUnit/L 12-78 ALKALINE PHOSPHATASE TOTAL (test code=ALKP) 91 IUnit/L 45-117 Note change in reference range due to change in reagent. [id number] 05:19:00* Test Item Value Reference Range Comments LIPASE (test code=LIP) 129 U/L 73.0-393.0 [id number] 05:19:00* Test Item Value Reference Range Comments TROPONIN-I (test code=TROPI) <0.015 ng/mL 0-0.045 BASIC METABOLIC [id number] 05:11:00* Test Item Value Reference Range Comments SODIUM (test code=NA) 138 mmol/L 136-145 POTASSIUM (test code=K) 3.7 mmol/L 3.5-5.1 CHLORIDE (test code=CL) 102.0 mmol/L 98-107 CARBON DIOXIDE (test code=CO2) mmol/L 21-32 ANION GAP (test code=GAP) 10-20 GLUCOSE (test code=GLU) mg/dL 74-106 BLOOD UREA NITROGEN (test code=BUN) mg/dL 7-18 GLOMERULAR FILTRATION RATE (test code=GFR) mL/min >=60 CREATININE (test code=CREAT) mg/dL 0.55-1.02 BUN/CREATININE RATIO (test code=BUN/CREA) 10-20 CALCIUM (test code=CA) mg/dL 8.5-10.1 HEPATIC FUNCTION [id number] 05:11:00* Test Item Value Reference Range Comments TOTAL PROTEIN (test code=PROT) gram/dL 6.4-8.2 ALBUMIN (test code=ALB) g/dL 3.4-5.0 GLOBULIN (test code=GLOB) gram/dL 2.7-4.2 ALBUMIN/GLOBULIN RATIO (test code=A/G) 0.75-1.50 BILIRUBIN TOTAL (test code=BILT) mg/dL 0.0-1.0 BILIRUBIN DIRECT (test code=BILD) mg/dL 0.0-0.20 SGOT/AST (test code=AST) IUnit/L 15-37 SGPT/ALT (test code=ALT) IUnit/L 12-78 ALKALINE PHOSPHATASE TOTAL (test code=ALKP) IUnit/L 45-117 [id number] 05:11:00* Test Item Value Reference Range Comments LIPASE (test code=LIP) U/L 73.0-393.0 [id number] 05:11:00* Test Item Value Reference Range Comments TROPONIN-I (test code=TROPI) ng/mL 0-0.045 URINALYSIS [id number] 05:04:00* Test Item Value Reference Range Comments UA COLOR (test code=COLU) LIGHT YELLOW YELLOW UA APPEARANCE (test code=APPU) CLEAR CLEAR UA GLUCOSE DIPSTICK (test code=DGLUU) NEGATIVE mg/dL NEGATIVE UA BILIRUBIN DIPSTICK (test code=BILU) NEGATIVE mg/dL NEGATIVE UA KETONE DIPSTICK (test code=KETU) Negative mg/dL NEGATIVE UA SPECIFIC GRAVITY (test code=SGU) 1.009 1.001-1.035 UA BLOOD DIPSTICK (test code=CHELY) Negative NEGATIVE UA PH DIPSTICK (test code=FABI) 6.0 5.0-8.0 UA PROTEIN DIPSTICK (test code=PROU) Negative mg/dL NEGATIVE UA UROBILINIOGEN DIPSTICK (test code=URO) 2.0 (1+) mg/dL NEGATIVE UA NITRITE DIPSTICK (test code=FARIHA) NEGATIVE NEGATIVE UA LEUKOCYTE ESTERASE W REFLEX (test code=LEUUR) TRACE NEGATIVE UA WBC (test code=WBCU) 6-10 #/HPF 0-5 UA RBC (test code=RBCU) 0-2 #/HPF 0-5 UA EPITHELIAL CELLS (test code=EPIU) FEW per HPF FEW UA BACTERIA (test code=BACU) FEW #/HPF NONE UA MUCUS (test code=MUCU) FEW #/LPF FEW Urine Source? Clean CatchCBC W/O [id number] 05:02:00* Test Item Value Reference Range Comments WHITE BLOOD CELL (test code=WBC) 6.7 K/mm3 4.5-12.5 RED BLOOD CELL (test code=RBC) 3.61 mill/mm3 3.7-5.2 HEMOGLOBIN (test code=HGB) 12.4 gram/dL 11.5-15.5 HEMATOCRIT (test code=HCT) 37.4 % 36.0-46.0 MEAN CELL VOLUME (test code=MCV) 103.6 fL 80-98 MEAN CELL HGB (test code=MCH) 34.3 picogram 27.0-33.0 MEAN CELL HGB CONCETRATION (test code=MCHC) 33.2 gram/dL 33.0-36.0 RED CELL DISTRIBUTION WIDTH (test code=RDW) 13.5 % 11.6-16.2 PLATELET COUNT (test code=PLT) 137 K/mm3 150-450 MEAN PLATELET VOLUME (test code=MPV) 10.0 fL 6.7-11.0 CBC W/O [id number] 05:01:00* Test Item Value Reference Range Comments WHITE BLOOD CELL (test code=WBC) K/mm3 4.5-12.5 RED BLOOD CELL (test code=RBC) mill/mm3 3.7-5.2 HEMOGLOBIN (test code=HGB) 12.4 gram/dL 11.5-15.5 HEMATOCRIT (test code=HCT) 37.4 % 36.0-46.0 MEAN CELL VOLUME (test code=MCV) fL 80-98 MEAN CELL HGB (test code=MCH) picogram 27.0-33.0 MEAN CELL HGB CONCETRATION (test code=MCHC) gram/dL 33.0-36.0 RED CELL DISTRIBUTION WIDTH (test code=RDW) % 11.6-16.2 PLATELET COUNT (test code=PLT) K/mm3 150-450 MEAN PLATELET VOLUME (test code=MPV) fL 6.7-11.0 TROPONIN I [id number] 06:38:00* Test Item Value Reference Range Comments TROPONIN I RAPID (test code=TROPIRAP) 0.00 ng/mL <0.08 Please Note New Reference Range 0.00-0.079 ng/mL - Negative>or=0.08 ng/mL - Positive The use of serial sampling and testing protocol is arecommended practice.An elevated troponin level alone is often not sufficient fordiagnosis of myocardial infarction. Troponin results obtained by different assays may vary.Evaluation of the extent of myocardial damage based onincrease of troponin would be valid only if similarmethodology is used. BASIC METABOLIC [id number] 04:54:00* Test Item Value Reference Range Comments SODIUM (test code=NA) 137 mmol/L 136-145 POTASSIUM (test code=K) 4.2 mmol/L 3.5-5.1 CHLORIDE (test code=CL) 103.0 mmol/L 98-107 CARBON DIOXIDE (test code=CO2) 26.0 mmol/L 21-32 ANION GAP (test code=GAP) 12.2 10-20 GLUCOSE (test code=GLU) 163 mg/dL 74-106 BLOOD UREA NITROGEN (test code=BUN) 16 mg/dL 7-18 GLOMERULAR FILTRATION RATE (test code=GFR) 55 mL/min >=60 Estimated GFR by using Modified MDRD formula.Chronic kidney disease is defined as either kidney damageor GFR <60 mL/min/1.73 m2 for >3 months. CREATININE (test code=CREAT) 1.00 mg/dL 0.55-1.02 Note change in reference range due to change in reagent. BUN/CREATININE RATIO (test code=BUN/CREA) 16.0 10-20 CALCIUM (test code=CA) 8.9 mg/dL 8.5-10.1 [id number] 04:54:00* Test Item Value Reference Range Comments TROPONIN-I (test code=TROPI) <0.015 ng/mL 0-0.045 BASIC METABOLIC [id number] 04:44:00* Test Item Value Reference Range Comments SODIUM (test code=NA) 137 mmol/L 136-145 POTASSIUM (test code=K) 4.2 mmol/L 3.5-5.1 CHLORIDE (test code=CL) 103.0 mmol/L 98-107 CARBON DIOXIDE (test code=CO2) mmol/L 21-32 ANION GAP (test code=GAP) 10-20 GLUCOSE (test code=GLU) mg/dL 74-106 BLOOD UREA NITROGEN (test code=BUN) mg/dL 7-18 GLOMERULAR FILTRATION RATE (test code=GFR) mL/min >=60 CREATININE (test code=CREAT) mg/dL 0.55-1.02 BUN/CREATININE RATIO (test code=BUN/CREA) 10-20 CALCIUM (test code=CA) mg/dL 8.5-10.1 [id number] 04:44:00* Test Item Value Reference Range Comments TROPONIN-I (test code=TROPI) ng/mL 0-0.045 CBC W/O [id number] 04:39:00* Test Item Value Reference Range Comments WHITE BLOOD CELL (test code=WBC) 5.1 K/mm3 4.5-12.5 RED BLOOD CELL (test code=RBC) 3.35 mill/mm3 3.7-5.2 HEMOGLOBIN (test code=HGB) 11.5 gram/dL 11.5-15.5 HEMATOCRIT (test code=HCT) 35.5 % 36.0-46.0 MEAN CELL VOLUME (test code=MCV) 106.0 fL 80-98 MEAN CELL HGB (test code=MCH) 34.3 picogram 27.0-33.0 MEAN CELL HGB CONCETRATION (test code=MCHC) 32.4 gram/dL 33.0-36.0 RED CELL DISTRIBUTION WIDTH (test code=RDW) 13.7 % 11.6-16.2 PLATELET COUNT (test code=PLT) 111 K/mm3 150-450 MEAN PLATELET VOLUME (test code=MPV) 10.3 fL 6.7-11.0 TROPONIN I [id number] 04:32:00* Test Item Value Reference Range Comments TROPONIN I RAPID (test code=TROPIRAP) 0.00 ng/mL <0.08 Please Note New Reference Range 0.00-0.079 ng/mL - Negative>or=0.08 ng/mL - Positive The use of serial sampling and testing protocol is arecommended practice.An elevated troponin level alone is often not sufficient fordiagnosis of myocardial infarction. Troponin results obtained by different assays may vary.Evaluation of the extent of myocardial damage based onincrease of troponin would be valid only if similarmethodology is used. - XR CHEST 1 [id number] 04:20:00 FAX: Jono Hutchinson MD [phone] [place]: St: REG FAX: Marium Mckenna MD [phone] Name: QUENTIN BUENO [facility] : 1950 Age/S: 68/F [address] [facility] Unit #: [id number] Loc: [place] [address] Phys: Jono Hutchinson MD Acct: [id number] Dis Date: Status: REG ER PHONE #: [phone] Exam Date: 12/02/2018 0408 FAX #: [phone] Reason: CHEST PAIN EXAMS: CPT CODE: [id number] XR CHEST 1 V 93913 - XR CHEST 1 V Location:J9 After hours services provided12/02/2018 4:20 AM INDICATION:CHEST PAIN COMPARISON:05/10/2018 FINDINGS:The lungs are equally and symmetrically inflated. The trachea is midline. Midline sternotomy wires appear intact. The heart is normal in size. No acute bony abnormality. IMPRESSION: No acute cardiopulmonary disease. at 0420 Reported and signed by: Enoc Esteban M.D. CC: Jono Hutchinson MD; Marium Mckenna MD Technologist: RT MACHELLE Trnscrd Date/Time/By: 12/02/2018 (042) : By: [email or web address] Orig Print D/T: S: 12/02/2018 (0424) PAGE 1 Signed Report TIB/FIB 2VW RT - [id number] 22:22:00 [place] [address] Patient Name: QUENTIN BUENO V MR #: [id number] : 1950 Age/Sex: 68/F Req #: [id number] [facility] Physician: Ordered by: LONDON DALTON MD Report #: [id number] Location: [facility] Room/Bed: Procedure: [id number] HOPD/TIB/FIB 2VW RT - HOPD Exam Date: 11/03/18 Exam Time: 2107 REPORT STATUS: Signed TIB/FIB 2VW RT - HOPD Comparison: None Clinical history: Pain, car door closed on the lower right leg Findings: Moderate visualized knee degenera tive changes. Achilles enthesophyte and plantar calcaneal spur. Slight cortica l irregularity of the distal lateral fibula. No displaced fracture. Impre ssion: Age-indeterminate slight cortical irregularity of the distal lateral fi bula; subtle nondisplaced fracture not excluded given mechanism of injury. Co rrelate with site of pain and recommend short term radiographic follow up. Signed by: Dr Mary Hayward MD on 11/03/2018 10:44 PM Dictated By: MARRY HAYWARD MD 43 Transcribed By: DWAINE on 11/03/182243 COPY TO: LONDON DALTON MD
[2020-01-31 19:37] VITALS: BP 127/65
[2020-01-31] MEDS ORDERED: ELIQUIS5 MG (19:37)
[2020-01-31] MEDS ORDERED: LASIX20 MG PO (19:37)
== END 2020-01-31 14:56 | disposition home or self-care (01) ==
LOC: FSED 14:10
DX: R04.0 Epistaxis (principal); J30.1 Allergic rhinitis due to pollen; I10 Essential (primary) hypertension; I51.9 Heart disease, unspecified; E78.5 Hyperlipidemia, unspecified
CPT/HCPCS: 99282

== ENCOUNTER 2021-04-28 08:07 | Emergency (ER) | payer MEDICARE, OTHER ==
[~2021-04-28] VITALS: Ht 170.2 cm; Wt 126.1 kg
[~2021-04-28 08:07] MED LIST changes: +ELIQUIS5 MG; +LASIX20 MG PO
[2021-04-28 08:53] LABS: BASOPHILS % 0.4 % (0.0-1.0); EOSINOPHILS # (AUTO) 0.2 (0.0-0.4); EOSINOPHILS % 2.5 % (0.0-6.0); HEMOGLOBIN 11.4 g/dL (12.0-16.0); LYMPHOCYTES # (AUTO) 2.7 (1.0-3.2); LYMPHOCYTES % 29.1 % (18.0-39.1); MEAN CORPUSCULAR HEMOGLOBIN 28.9 pg (28-32); MEAN CORPUSCULAR HGB CONC 32.6 g/dL (31-35); MEAN CORPUSCULAR VOLUME 88.8 fL (81-99); MONOCYTES # (AUTO) 0.5 (0.2-0.8); MONOCYTES % 5.9 % (4.4-11.3); NEUTROPHILS # (AUTO) 5.7 (2.1-6.9); NEUTROPHILS % 61.9 % (38.7-80.0); PLATELET COUNT 111 x10e3/uL (140-360); RED BLOOD COUNT 3.94 x10e6/uL (3.6-5.1)
[2021-04-28] MEDS ORDERED: SODIUM CHLORIDE 0.9% 50ML 50 ML ONE (09:04)
[2021-04-28] MEDS ORDERED: IOPAMIDOL 370 MG/ML 200 ML INFUS..BTL INJ ONE (09:04)
[2021-04-28 09:08] LABS: ALANINE AMINOTRANSFERASE 28 IU/L (0-55); ALBUMIN 3.4 g/dL (3.5-5.0); ALBUMIN/GLOBULIN RATIO 0.9 (0.8-2.0); ALKALINE PHOSPHATASE 98 IU/L (40-150); ANION GAP 10.5 mmol/L (8-16); BLOOD UREA NITROGEN 19 mg/dL (7-26); BUN/CREATININE RATIO 21 (6-25); CALCIUM 8.6 mg/dL (8.4-10.2); CARBON DIOXIDE 25 mmol/L (22-29); CHLORIDE 105 mmol/L (98-107); CREATININE, SERUM 0.89 mg/dL (0.57-1.11); EST GLOMERULAR FILTRATION RATE > 60 ML/MIN (60-); GLUCOSE 115 mg/dL (74-118); POTASSIUM 4.5 mmol/L (3.5-5.1); SODIUM 136 mmol/L (136-145)
[2021-04-28 09:12] LABS: CLARITY,URINE CLEAR (CLEAR); COLOR,URINE YELLOW (YELLOW); KETONES,URINE NEGATIVE (NEGATIVE); LEUKOCYTE ESTERASE ,URINE NEGATIVE (NEGATIVE); NITRITE,URINE NEGATIVE (NEGATIVE); PROTEIN,URINE DIPSTICK NEGATIVE (NEGATIVE)
[2021-04-28 09:13] LABS: URINE UROBILINOGEN 0.2 mg/dL (0.2 - 1)
[2021-04-28 09:21] LABS: BACTERIA,URINE FEW /HPF; EPITHELIAL CELLS,URINE FEW /LPF; TRANSITIONAL EPI CELLS,URINE RARE
[2021-04-28 11:06] VITALS: BP 122/55
== END 2021-04-28 11:07 | disposition home or self-care (01) ==
LOC: ER 08:35
DX: R10.31 Right lower quadrant pain (principal); I10 Essential (primary) hypertension; E78.5 Hyperlipidemia, unspecified; Z85.528 Personal history of other malignant neoplasm of kidney; Z86.718 Personal history of other venous thrombosis and embolism; Z86.73 Personal history of transient ischemic attack (TIA), and cerebral infarction without residual deficits
CPT/HCPCS: 36415; 74177; 80053; 81001; 83690; 85025; 99283; Q9967

== ENCOUNTER → 2021-05-08 | Outpatient (CLI) | payer MEDICARE, OTHER | LOC: US 16:11 | PROVIDERS: ATTEND Internal Medicine | DX: K80.80 Other cholelithiasis without obstruction (principal) | CPT/HCPCS: 76705 ==

== ENCOUNTER 2022-03-02 11:25 | Emergency (ER) | payer MEDICARE ==
[~2022-03-02] VITALS: Ht 170.2 cm; Wt 126.1 kg
== END 2022-03-02 15:13 | disposition home or self-care (01) ==
LOC: ER 11:46
DX: M25.561 Pain in right knee (principal); I10 Essential (primary) hypertension; J45.909 Unspecified asthma, uncomplicated; Z88.6 Allergy status to analgesic agent; Z88.1 Allergy status to other antibiotic agents; Z88.8 Allergy status to other drugs, medicaments and biological substances; Z79.02 Long term (current) use of antithrombotics/antiplatelets; Z79.82 Long term (current) use of aspirin; Z79.899 Other long term (current) drug therapy; Z86.73 Personal history of transient ischemic attack (TIA), and cerebral infarction without residual deficits; Z86.711 Personal history of pulmonary embolism; Z86.718 Personal history of other venous thrombosis and embolism
CPT/HCPCS: 93971; 99284

== ENCOUNTER → 2025-03-13 | Outpatient (REF) | payer MEDICARE | LOC: US 12:21 | PROVIDERS: ATTEND Internal Medicine | DX: K82.8 Other specified diseases of gallbladder (principal); R10.11 Right upper quadrant pain | CPT/HCPCS: 76705 ==

== ENCOUNTER → 2025-05-17 | Outpatient (REF) | payer MEDICARE | LOC: NM 09:18 | PROVIDERS: ATTEND Internal Medicine | DX: K82.8 Other specified diseases of gallbladder (principal); R10.11 Right upper quadrant pain | CPT/HCPCS: 78227; A9537 ==